=== PATIENT | female | born 1975 | race Caucasian/White ===

== ENCOUNTER 2020-09-05 12:53 | Outpatient (REF) | payer MEDICAID, SELFPAY ==
--- NOTE | ~2020-09-05 | XR_ITS ---
EXAMINATION: XR THORACIC SPINE: 3 VIEWS XR LUMBAR SPINE: 5 VIEWS CLINICAL INFORMATION: Back pain. COMPARISON: Radiographs dated 04/13/2019 FINDINGS: No acute fracture or traumatic malalignment. Vertebral body heights maintained. Small endplate osteophytes present throughout the thoracic and lumbar spine. Facet arthropathy present at L4-L5 and L5-S1. S1 is lumbarized. Paraspinal soft tissues unremarkable. Chain sutures present within the right lower quadrant. XR/XR thoracic spine 3V IMPRESSION: No acute fracture or traumatic malalignment. Degenerative changes as described.
--- NOTE | ~2020-09-05 | XR_ITS ---
EXAMINATION: XR HAND, LEFT CLINICAL INFORMATION: Pain in left hand COMPARISON: None TECHNIQUE: PA, lateral, and oblique views of the left hand. FINDINGS: There is no fracture or dislocation. Subtle erosion may be present at the base of the fifth metacarpal. Joint spaces are maintained. The soft tissues are unremarkable. XR/XR hand LT 2V IMPRESSION: No acute osseous abnormality. Subtle erosion may be present at the base of the fifth metacarpal. Otherwise unremarkable appearance of the hand.
--- NOTE | ~2020-09-05 | XR_ITS ---
EXAMINATION: XR THORACIC SPINE: 3 VIEWS XR LUMBAR SPINE: 5 VIEWS CLINICAL INFORMATION: Back pain. COMPARISON: Radiographs dated 04/13/2019 FINDINGS: No acute fracture or traumatic malalignment. Vertebral body heights maintained. Small endplate osteophytes present throughout the thoracic and lumbar spine. Facet arthropathy present at L4-L5 and L5-S1. S1 is lumbarized. Paraspinal soft tissues unremarkable. Chain sutures present within the right lower quadrant. XR/XR lumbar spine 4V min IMPRESSION: No acute fracture or traumatic malalignment. Degenerative changes as described.
== END 2020-09-05 12:54 | disposition home or self-care (01) ==
LOC: HO.XRAY 12:53
PROVIDERS: PCP Internal Medicine; Visit Provider Internal Medicine
DX: M79.642 Pain in left hand (principal); M54.5 Low back pain; M54.9 Dorsalgia, unspecified
CPT/HCPCS: 72072; 72110; 73120

== ENCOUNTER → 2020-10-07 13:10 | Outpatient (BNVA) | payer MEDICAID, SELFPAY | PROVIDERS: PCP Internal Medicine; Visit Provider Surgery | DX: R10.10 Upper abdominal pain, unspecified (principal) | CPT/HCPCS: 99202 ==

== ENCOUNTER 2020-10-23 09:59 | Outpatient (REF) | payer MEDICAID, SELFPAY ==
--- NOTE | ~2020-10-23 | MM_ITS ---
EXAMINATION: MM DIAGNOSTIC DIGITAL BREAST TOMOSYNTHESIS, BILATERAL CLINICAL INFORMATION: Due for yearly. Also follow-up probable benign calcifications mid upper outer left breast noted at outside imaging. Family history breast cancer, mother. The lifetime risk of breast cancer based on the Tyrer-Cuzick Model is 15%. COMPARISON: Outside mammography: 04/13/2019, 09/30/2018, 09/17/2018 (BI-RADS 0), 02/01/2015; ultrasound 02/01/2015 ([facility], [place]). TECHNIQUE: Digital breast tomosynthesis is performed in both the craniocaudal and mediolateral oblique views along with computer-aided detection (CAD). Synthesized 2D images are generated from the tomosynthesis. Additional magnification views are obtained in the left CC and left MLO projections. FINDINGS: There are scattered areas of fibroglandular density (ACR BI-RADS breast composition Category b). Parenchymal pattern is similar to prior studies. There are regional fibrocystic changes upper outer left breast. There are no significant mass or developing density or architectural abnormality. There are intramammary nodes again seen bilateral outer quadrants. Calcifications for follow-up mid upper outer left breast are stable from prior exams and now considered benign. Some of these show layering within the dependent fibrocystic changes. Results are discussed with the patient at time of visit. MM/MM tomosynthesis diagnostic BI IMPRESSION: 1. No significant changes from prior outside studies. 2. No significant changes left breast calcifications from prior diagnostic studies, now considered benign. ASSESSMENT: BI-RADS 2: Benign RECOMMENDATION: Routine annual mammography screening. This patient's information was entered into a reminder system with a target due date for their next mammogram.
== END 2020-10-23 10:00 | disposition home or self-care (01) ==
LOC: HO.MAMMO 09:59
PROVIDERS: Visit Provider Internal Medicine
DX: R92.2 Inconclusive mammogram (principal); Z80.3 Family history of malignant neoplasm of breast
CPT/HCPCS: 77062; 77066

== ENCOUNTER 2020-11-01 11:06 | Outpatient (REF) | payer MEDICAID, SELFPAY ==
--- NOTE | ~2020-11-01 | CT_ITS ---
EXAMINATION: CT ABDOMEN AND PELVIS WITHOUT CONTRAST CLINICAL INFORMATION: Upper abdominal pain COMPARISON: None TECHNIQUE: Multidetector volumetric imaging was performed from the superior aspect of the liver through the pubic symphysis. Sagittal and coronal reformatted images were obtained on the technologist's workstation. This CT examination was performed using dose optimization techniques as appropriate, variously including the following: *Automated exposure control *Adjustment of mA and/or kV according to patient size (this includes techniques or standardized protocols for targeted exams where dose is matched to indication/reason for exam; i.e. extremities or head) *Use of iterative reconstruction technique DLP: 541 mGy-cm FINDINGS: LUNG BASES: The visualized lung bases are unremarkable. LIVER, GALLBLADDER, AND BILIARY TREE: The liver is normal in size, shape, and attenuation. No focal hepatic lesion or biliary ductal dilatation is present. The gallbladder is unremarkable with no evidence of radiopaque gallstones, gallbladder wall thickening, or obvious pericholecystic inflammatory changes. PANCREAS: Unremarkable. SPLEEN: Unremarkable. ADRENAL GLANDS: Unremarkable. KIDNEYS AND URETERS: The kidneys are normal in size and shape. There is a small cyst exophytic to the lateral midpole of the left kidney. No hydronephrosis, hydroureter, or calculi seen. No perinephric stranding. BLADDER: Unremarkable. GASTROINTESTINAL TRACT: There is stool throughout the colon questionable for mild constipation. The small and large bowel are otherwise unremarkable. The appendix has been removed. There is a small esophageal hernia. The stomach is otherwise normal. ABDOMINAL WALL: There is a small umbilical hernia containing fat. LYMPH NODES: Normal. VASCULAR: Unremarkable. PELVIC VISCERA: Unremarkable. OSSEOUS STRUCTURES: Unremarkable. CT/CT abdomen pelvis wo con IMPRESSION: Stool throughout the colon questionable for mild constipation. Small umbilical hernia containing fat. Small hiatal hernia. Small left renal cyst.
[2020-11-01] MEDS: Barium Sulfate Oral (Vanilla) 450 ML ORAL.SUSP 900 ML PO (13:43)
== END 2020-11-01 11:07 | disposition home or self-care (01) ==
LOC: HO.CT 11:06
PROVIDERS: PCP Internal Medicine; Visit Provider Surgery
DX: R10.10 Upper abdominal pain, unspecified (principal)
CPT/HCPCS: 74176

== ENCOUNTER → 2020-11-14 15:33 | Outpatient (BNVA) | payer MEDICAID, SELFPAY | PROVIDERS: PCP Internal Medicine; Referring Provider Internal Medicine; Visit Provider Surgery | DX: R10.10 Upper abdominal pain, unspecified (principal); K42.9 Umbilical hernia without obstruction or gangrene | CPT/HCPCS: 99212 ==

== ENCOUNTER 2021-08-14 17:00 | Outpatient (RCR) | payer OTHER, MEDICAID, SELFPAY ==
--- NOTE | 2021-08-21 17:59 | MHC.PT.DC ---
[facility] [place] Office [place] Office [place] Office [address] [place] [address] [phone] F: [phone] F: [phone] F: [phone] F: [phone] Physical Therapy Discharge Report Diagnosis: low back pain Date of Surgery: n/a Date of Evaluation: 07/24/21 Date of Discharge: 08/21/21 Treatments to Date: 2 Cancellations to Date: 3 No Shows to Date: 2 Discharge Status: Visit Non-compliance Discharge Summary: Pt has failed to comply with [facility] attendance policy and now showed her last 2 appointments and cancelled 3 others. Pt status unknown at this time. Electronically signed by: Jeannie Teran, PT, DPT, ATC Please sign and return to therapist. Thank you for your referral.
== END 2021-08-21 18:00 | disposition home or self-care (01) ==
LOC: HO.PTCHIC 17:00
PROVIDERS: PCP Internal Medicine; Visit Provider Internal Medicine
DX: M54.50 Low back pain, unspecified (principal)
CPT/HCPCS: 97110; 97161

== ENCOUNTER 2021-09-24 15:48 | Outpatient (REF) | payer OTHER, MEDICAID, SELFPAY ==
[2021-09-24 17:50] LABS: Hematocrit 37.3 % (37.0-47.0); Mean Corpuscular HGB Conc 32.2 g/dl (31.0-35.0); Mean Corpuscular Hemoglobin 26.3 pg (27.0-33.0); Mean Corpuscular Volume 81.6 fL (80.0-98.0); Mean Platelet Volume 10.4 fL (9.4-12.3); Platelet Count 325 X10*3/uL (160-400); Red Blood Count 4.57 X10*6/uL (4.20-5.50); Red Cell Distribution Width 14.6 % (11.0-16.0); White Blood Count 7.8 X10*3/uL (4.8-10.8)
[2021-09-24 18:14] LABS: Alanine Aminotransferase 14 U/L (0-31); Albumin Level 4.2 g/dL (3.5-5.0); Alkaline Phosphatase 106 U/L (39-117); Anion Gap 12 (12-20); Aspartate Amino Transferase 13 U/L (5-31); Bilirubin Total 0.2 mg/dL (0.0-1.0); Blood Urea Nitrogen 14 mg/dL (9-16); Calcium 9.9 mg/dL (8.4-10.2); Carbon Dioxide 28 mmol/L (22-29); Chloride 104 mmol/L (96-108); Estimated Glomerular Filt Rate > 60; Glucose Random 95 mg/dL (60-115); Lipase 21 U/L (8-78); Potassium 4.3 mmol/L (3.3-5.1); Sodium 140 mmol/L (135-145); Total Protein 7.4 g/dL (6.5-8.0)
[2021-09-24 18:34] LABS: TSH reflex Free T4 1.66 uIU/mL (0.32-4.0)
[2021-09-24 19:02] LABS: Folate 8.3 ng/mL (> or = 4.0); Vitamin B12 292 pg/mL (200-900)
[2021-09-28 14:17] LABS: Vitamin D 25-OH, D2 26 ng/mL; Vitamin D 25-OH, D3 8 ng/mL; Vitamin D 25-OH, Total 34 ng/mL (30-100)
== END 2021-09-24 15:49 | disposition home or self-care (01) ==
LOC: HO.LAB 15:48
PROVIDERS: PCP Internal Medicine; Referring Provider Internal Medicine; Visit Provider Nurse Practitioner Family
DX: R10.10 Upper abdominal pain, unspecified (principal); K59.04 Chronic idiopathic constipation; K21.9 Gastro-esophageal reflux disease without esophagitis; R19.7 Diarrhea, unspecified; E55.9 Vitamin D deficiency, unspecified
CPT/HCPCS: 36415; 80053; 82306; 82607; 82746; 83690; 84443; 85027; 99214

== ENCOUNTER → 2021-10-09 08:54 | Outpatient (BNVA) | payer OTHER, SELFPAY | PROVIDERS: PCP Internal Medicine; Visit Provider Nurse Practitioner Family | DX: Z13.89 Encounter for screening for other disorder (principal) ==

== ENCOUNTER 2021-10-09 14:57 | Outpatient (REF) | payer OTHER, MEDICAID, SELFPAY ==
[2021-10-10 12:47] LABS: H Pylori Breath Test Negative (Negative)
== END 2021-10-09 14:58 | disposition home or self-care (01) ==
LOC: HO.LNP 14:57
PROVIDERS: Visit Provider Nurse Practitioner Family
DX: R10.10 Upper abdominal pain, unspecified (principal); Z11.0 Encounter for screening for intestinal infectious diseases
CPT/HCPCS: 83013

== ENCOUNTER 2022-12-04 07:55 | Day surgery (SDC) | payer OTHER, MEDICAID, SELFPAY ==
[2022-12-01 16:52] VITALS: BMI 35.9
--- NOTE | 2022-12-03 10:21 | HO.ANESPROP2 ---
HPI - Anesthesia Eval Consult details Narrative: 47yo F for Upper Endoscopy s/p tubal PMFSH Active Problems Active Problems: All Active Problems (Updated 10/07/20 @ 13:39 by Kirk Li MD) Upper abdominal pain (Acute) Past Medical History Medical History Asthma Upper abdominal pain Family History Family History Maternal Grandmother Breast cancer Father Diabetes HTN (hypertension) Schizophrenia Stroke Paternal Grandfather Stroke Diabetes HTN (hypertension) Mother Diabetes HTN (hypertension) Heart problem Other History of esophageal cancer History of kidney cancer Stomach cancer Throat cancer Uterine cancer Surgical History Surgical History History of appendectomy History of esophagogastroduodenoscopy (EGD) History of tubal ligation History of umbilical hernia repair Social History Social History Alcohol intake: never Patient Tobacco Use Status: Never used Tobacco Meds Allergies Allergy/AdvReac Type Severity Reaction Status Date / Time morphine Allergy Unknown Unknown Verified 12/14/22 10:05 ciprofloxacin [From Cipro] Allergy Difficulty Verified 12/14/22 10:05 Breathing Home Medications Medication Instructions Recorded Confirmed Last Taken Type albuterol sulfate 90 mcg/actuation 2 puff inhalation Q6H PRN asthma 10/07/20 12/04/22 Unknown History aerosol inhaler (ProAir HFA) Exam Exam Date and Time: December 03, 2022 1021 Height,Weight and Vital Signs: Height 4 ft 11 in Weight 80.739 kg Assessment and Plan Assessment Anesthesia Assessment: Chart Reviewed
[2022-12-04 08:33] VITALS: BP 109/74; PULSE 78; RESP 16; TEMP 36.3; O2SAT 99; BMI 35.9
--- NOTE | 2022-12-04 09:01 | HO.ANESPROP2 ---
[facility] Active Problems Active Problems: All Active Problems (Updated 12/04/22 @ 08:40 by Ale Dinero RN) Upper abdominal pain (Acute) Past Medical History Medical History Asthma Upper abdominal pain Family History Family History Maternal Grandmother Breast cancer Father Diabetes HTN (hypertension) Schizophrenia Stroke Paternal Grandfather Stroke Diabetes HTN (hypertension) Mother Diabetes HTN (hypertension) Heart problem Other History of esophageal cancer History of kidney cancer Stomach cancer Throat cancer Uterine cancer Surgical History Surgical History History of appendectomy History of esophagogastroduodenoscopy (EGD) History of tubal ligation History of umbilical hernia repair Social History Social History Alcohol intake: never Patient Tobacco Use Status: Never used Tobacco Use of substances other than those prescribed or required for medical reasons: No Are you DNR?: No Advance Directives: No Advance Directives Information Provided: Yes Meds Allergies Allergy/AdvReac Type Severity Reaction Status Date / Time morphine Allergy Unknown Unknown Verified 09/24/21 16:02 ciprofloxacin [From Cipro] Allergy Difficulty Verified 12/04/22 08:42 Breathing Active Medications: Current Medications Lactated Ringer's (Lr) 1,000 mls @ 100 mls/hr IVCONT .Q10H [facility] Home Medications Medication Instructions Recorded Confirmed Last Taken Type albuterol sulfate 90 mcg/actuation 2 puff inhalation Q6H PRN asthma 10/07/20 12/04/22 Unknown History aerosol inhaler (ProAir HFA) omeprazole 20 mg capsule,delayed 20 mg PO BID 10/07/20 12/04/22 Unknown History release Exam Exam Date and Time: December 04, 2022900 Height,Weight and Vital Signs: Height 4 ft 11 in Weight 80.7 kg Last Vital Signs Temp 97.4 F 12/04/22 08:33 Pulse 78 12/04/22 08:33 Resp 16 12/04/22 08:33 BP 109/74 12/04/22 08:33 Pulse Ox 99 12/04/22 08:33 O2 Del Method Room Air 12/04/22 08:33 Airway Mallampati Class: II TM Dist: >3cm Neck ROM: Full Heart: RRR Lungs: CTA Assessment and Plan Final Anesthetic Review ASA Class: II Final Preanesthetic Review: Meds/Allgs Chart Reviewed, Consent Obtained/Reviewed and Anes Risks/Benef Reviewed Patient Risk: Low Procedure Risk: Low Anesthetic Plan Anesthetic Plan: MAC: Disposition: Standard PACU
--- NOTE | 2022-12-04 09:09 | P.HPSUR_ITS ---
Pre-Procedural Eval Section A Date of Service: 12/04/22 The patient is an INPATIENT: No Section B Chief Complaint: Upper abdominal pain, unspecified.reflux Relevant Family History (Specify if Yes): Yes Present Medications: see Short Stay Collaborative assessment Medical History: Significant History ([facility] [id number] [address] Office Visit ReportSigned Patient: Rajni Marshall LMR#: [id number]: [id number]:[id number]/Sex: 45 / FADM/SER Date: 09/24/21Loc: HO.HGIADM/SER Time:1548Attending Provider: Letty Paredes PERIOPERATIVE EDUCATOR- cc: Susy Edmondson MD; Reggie) History of Previous Operations: Relevant previous surgery/procedure and date(s) (History of appendectomy History of esophagogastroduodenoscopy (EGD) History of tubal ligation History of umbilical hernia repair) Allergies: Allergies Allergy/AdvReac Type Severity Reaction Status Date / Time morphine Allergy Unknown Unknown Verified 09/24/21 16:02 ciprofloxacin [From Cipro] Allergy Difficulty Verified 12/04/22 08:42 Breathing Review of Systems Sugical H&P ROS: Negative: Constitution, Cardiovascular and Respiratory and Yes, Specify: Gastrointestinal (GERD) Exam Surgical H&P Exam: Normal: Heart, Normal: Lungs, Normal: Extremities and Normal: Abdomen Plan Diagnosis/Plan: Unchanged I have reviewed the history and physical and performed a pertinent physical examination on my patient. No changes have occurred unless specified. Time Spent With Patient Time: Total time managing care of this patient today ____ minutes.
[2022-12-04] MEDS: Lactated Ringers 1,000 ML 100 ML IVCONT (09:13)
--- NOTE | 2022-12-04 09:17 | P.OP_ITS ---
Operative Note Operative Note Date of Service: 12/04/22 Narrative: FLEXIBLE TRANSORAL UPPER GASTROINTESTINAL ENDOSCOPY WITH BIOPSIES Pre-op diagnosis: GERD, abdominal pain and bloating Post-op diagnosis: GERD, esophagitis, hiatal hernia, gastritis, gastric polyps Endoscopist:? Helen Madrid MD Anesthesia:?MAC Consent: Indications for the procedure and potential complications of bleeding, perforation, reaction to medications and missed diagnosis were discussed with the patient and informed consent was obtained. Instrument: Olympus GIF H 190 mid size upper endoscope Monitoring: Vital signs and clinical assessment, continuous EKG monitoring, Pulse oximetry, Carbon Dioxide monitoring and blood pressure monitoring were done throughout the procedure. Procedure: The patient was placed in the left lateral decubitis position and pre-procedure medications were administered and a bite block was placed. The endoscope was inserted into the mouth and advanced under direct vision to the third part of duodenum. A careful inspection was made as the upper endoscope was withdrawn including a retroflexed examination of the proximal stomach; Findings and interventions are described below. Findings: Larynx: Normal Esophagus: GE junction at 28 cms, hiatal hernia 28 to 32 cms. Focal esophagitis with a single 1 cms ulcer at GE junction covered with white exudate. No Patel's. Stomach: A few 10-12 mm benign appearing polyps in the gastric fundus - biopsied. Mild gastric erythema. Biopsies were obtained. Grade 2 flap valve on retroflexed examination of the cardia. Duodenum: Normal bulb and descending duodenum. Biopsies were obtained from 3rd part of duodenum to check for celiac sprue. Intervention: Biopsies as noted above Impression and Post Procedure Diagnosis: Endoscopy Findings: ESOPHAGUS: Hiatal hernia with focal esophagitis STOMACH: Gastritis and gastric polyps DUODENUM: Normal - biopsied to check for celiac sprue Plan: Await pathology results Patient has an appointment on 12/14/22 in the GI Clinic with Letty Paredes FNP- BC . Above findings were reviewed with the patient and Hiatal hernia and Gastric polyps handouts were given in the discharge area. Pt was advised to take Omeprazole daily instead of prn.
[2022-12-04 09:46] VITALS: BP 115/85; PULSE 104; RESP 16; TEMP 36.3; O2SAT 96
[2022-12-04 10:01] VITALS: BP 104/73; PULSE 78; RESP 16; TEMP 36.2; O2SAT 97
--- NOTE | 2022-12-04 10:09 | HO.POSTANES ---
Post Anesthesia Evaluation Post Anesthesia Evaluation Date of Service: 12/04/22 Vital Signs: Vital Signs Temp Pulse Resp BP Pulse Ox O2 Del Method 12/04/22 10:01 97.1 F 78 16 104/73 97 Room Air 12/04/22 09:46 97.4 F 104 H 16 115/85 96 Room Air 12/04/22 08:33 97.4 F 78 16 109/74 99 Room Air Anesthesia: Monitored Mental Status: Awake Pain Control: Satisfactory Nausea/Vomiting: None Hydration: Adequate Anesthesia-Related Issues: No Anes. Related Issues
== END 2022-12-04 10:40 | disposition home or self-care (01) ==
PROVIDERS: PCP Internal Medicine; Visit Provider Internal Medicine Gastroenterology
PROC: 0DJ08ZZ Inspection of Upper Intestinal Tract, Via Natural or Artificial Opening Endoscopic (ICD-10-PCS; CPT 43235; principal; 2022-12-04 09:10)
DX: K21.9 Gastro-esophageal reflux disease without esophagitis (principal); K29.50 Unspecified chronic gastritis without bleeding; K31.7 Polyp of stomach and duodenum; K20.80 Other esophagitis without bleeding; K44.9 Diaphragmatic hernia without obstruction or gangrene; J45.909 Unspecified asthma, uncomplicated; Z79.899 Other long term (current) drug therapy; Z88.8 Allergy status to other drugs, medicaments and biological substances; Z88.1 Allergy status to other antibiotic agents
CPT/HCPCS: 43239; 88305; 88342

== ENCOUNTER 2022-12-14 09:05 | Outpatient (REF) | payer OTHER, SELFPAY ==
[2022-12-19 12:24] LABS: Vitamin D 25-OH, D2 18 ng/mL; Vitamin D 25-OH, D3 13 ng/mL; Vitamin D 25-OH, Total 31 ng/mL (30-100)
== END 2022-12-14 09:06 | disposition home or self-care (01) ==
LOC: HO.LAB 09:05
PROVIDERS: Visit Provider Nurse Practitioner Family
DX: R10.9 Unspecified abdominal pain (principal); E55.9 Vitamin D deficiency, unspecified; R19.7 Diarrhea, unspecified; K59.00 Constipation, unspecified
CPT/HCPCS: 36415; 80076; 82306; 82607; 82746; 83690; 84443

== ENCOUNTER 2022-12-14 09:05 | Outpatient (AMB) | payer OTHER, SELFPAY ==
--- NOTE | 2022-12-14 09:37 | A.OFFVIS_ITS ---
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 Will check her lab work for thyroid study, CBC, lipase, CMP.? Upon exam there is no tenderness no distension. (2) Chronic idiopathic constipation: ?Code(s): K59.04 - Chronic idiopathic constipation ?Plan: Chronic history of constipation.? Patient states that she noticed that has been going on for over 6 months maybe longer.? I will start her on Senokot and MiraLax.? Patient used to take stool softener, however she did not thing that that was helpful. (3) GERD (gastroesophageal reflux disease): ?Code(s): K21.9 - Gastro-esophageal reflux disease without esophagitis ?Qualifiers: ?Esophagitis presence:?esophagitis presence not specified? Qualified Code(s):?K21.9 - Gastro-esophageal reflux disease without esophagitis ?Plan: Acid reflux with epigastric pain postprandially.? Patient was encouraged to avoid dietary triggers and like night snacking.? Patient does admit to eating before going to bed sometimes.? Discussed with patient the importance of pain of her for minimal 3 hours after meals.? We will do H pylori testing and start patient on Pepcid at bedtime.? If this not going to be effective we will start her on PPI.? We will have to treat her empirically if her H pylori test is positive.? I will send her for upper endoscopy.? I will see her after the procedure.? Patient is agreeable to this plan and verbalizes understanding of instructions.? She was given the opportunity to ask questions all questions answered.? UPPER ENDOSCOPY Findings: Larynx:? Normal Esophagus: GE junction at 28 cms, hiatal hernia 28 to 32 cms.? Focal esophagitis with a single 1 cms ulcer at GE junction covered with white exudate. No Patel's. Stomach: A few 10-12 mm benign appearing polyps in the gastric fundus - biopsied. Mild gastric erythema. Biopsies were obtained. Grade 2 flap valve on retroflexed examination of the cardia. Duodenum: Normal bulb and descending duodenum.? Biopsies were obtained from 3rd part of duodenum to check for celiac sprue. Intervention: Biopsies as noted above Impression and Post Procedure Diagnosis: Endoscopy Findings: ESOPHAGUS: Hiatal hernia with focal esophagitis STOMACH: Gastritis and gastric polyps DUODENUM: Normal - biopsied to check for celiac sprue Above findings were reviewed with the patient and Hiatal hernia and Gastric polyps handouts were given in the discharge area.? Pt was advised to take Omeprazole daily instead of prn. PATHOLOGY RESULTS Addendum Addendum #1 Immunohistochemical stains for H. pylori on B and C are negative with appropriate control. Electronically Signed By: Letty Roldan ? 12/14/22 0929 Diagnosis A.? Small bowel, biopsy:? Small bowel mucosa with preserved villi and no specific change; no evidence of celiac disease.? B.? Gastric antrum, biopsy:? Gastric antral mucosa with mild reactive changes and minimal chronic inactive gastritis; negative for intestinal metaplasia and dysplasia (see comment).? C.? Gastric polyps, biopsy:? Fundic gland polyp; negative for intestinal metaplasia and dysplasia (see comment).? Comment: (B and C):? H pylori stains pending; addendum to follow.: Clinical History Pre-Op Dx:? Dysphagia, GERD, gastric polyps Post-Op Dx: GERD, gastric polyps, esophagitis, hiatal hernia, gastritis TODAY'S VISIT Patient is here today for follow-up and to discuss upper endoscopy results. Patient was found to have esophagitis, gastritis, hiatal hernia and gastric polyps. Patient reports that she has searched on website information that omeprazole can cause gastric polyp so she stopped taking it. Patient reports occasional epigastric discomfort with occasional dyspepsia without dysphagia or odynophagia. Patient reports that she PFSH Medical History Asthma Upper abdominal pain Surgical History History of appendectomy History of esophagogastroduodenoscopy (EGD) History of tubal ligation History of umbilical hernia repair Family History Maternal Grandmother Breast cancer Father Diabetes HTN (hypertension) Schizophrenia Stroke Paternal Grandfather Stroke Diabetes HTN (hypertension) Mother Diabetes HTN (hypertension) Heart problem Other History of esophageal cancer History of kidney cancer Stomach cancer Throat cancer Uterine cancer Social History Alcohol intake: never Patient Tobacco Use Status: Never used Tobacco Review of Systems Const Denies weight gain and Denies weight loss ENT Reports no additional complaints, Denies dysphagia and Denies odynophagia Card Reports no additional complaints Resp Reports no additional complaints GI Reports abdominal pain (Epigastric), Denies belching, Denies melena, Denies bloating, Reports constipation, Denies dysphagia, Denies excessive flatus, Denies dyspepsia, Denies heartburn, Denies diarrhea, Denies loose stools, Denies nausea, Denies odynophagia and Denies vomiting Reports no additional complaints Musc Reports no additional complaints Neuro Reports no additional complaints Psych Reports no additional complaints Endo Reports no additional complaints Physical Exam Vital Signs: Last Vital Signs Pulse 92 12/14/22 10:05 BP 126/68 12/14/22 10:05 BMI result Body Mass Index 37.0 Const General: healthy appearing, no acute distress and well developed Nutritional Appearance: obese Orientation/consciousness: patient oriented x3 HEENT Head: Yes normal to inspection, Yes normocephalic and Yes atraumatic Face and sinus: Yes normal facial exam Mouth: Normal oral and palatal mucosa present Throat: Yes posterior oropharynx normal, Yes tonsils normal and Yes uvula midline Eyes General: appearance normal, both eyes and all related structures Neck Neck: Yes normal visual inspection, Yes full ROM and Yes trachea midline Thyroid: Thyroid normal Resp Effort & Inspection: normal respiratory effort, able to speak in complete se ntences, no tracheal deviation and symmetric chest movement Auscultation: clear to auscultation bilaterally Cardio Rate: regular rate Heart sounds: S1 normal heart sound present and S2 normal heart sound present GI Inspection: Yes normal to inspection, No distended and Yes obesity Palpation (GI): Soft to palpation, not firm, nontender and No hepatosplenomegaly present Auscultation: normal bowel sounds General: Yes no CVA tenderness Back/Spine/Pelvis Back: no CVA tenderness Skin General skin exam: elasticity normal, turgor normal and dry skin Neuro General: patient oriented x3 Psych Appearance: grossly normal Mental Status: mental status grossly normal Speech and movement: Normal speech and movement present Affect: normal affect Assessment & Plan Assessment & Plan (1) Upper abdominal pain: Code(s): R10.10 - Upper abdominal pain, unspecified Plan: Epigastric discomfort could be related to patient's gastritis noted on upper en doscopy. Patient was encouraged to avoid dietary triggers and late night snacking. Start taking pantoprazole every morning. Patient will be given sucralfate at bedtime. (2) Chronic idiopathic constipation: Code(s): K59.04 - Chronic idiopathic constipation Plan: Patient reports that she does not move her bowels daily. Start MiraLax daily. Patient was also encouraged to increase fluid intake and activity to promote better bowel motility (3) GERD (gastroesophageal reflux disease): Code(s): K21.9 - Gastro-esophageal reflux disease without esophagitis Qualifiers: Esophagitis presence: with esophagitis Esophagitis bleeding: without hemorrhage Qualified Code(s): K21.00 - Gastro-esophageal reflux disease with esophagitis, without bleeding Plan: Discussed with patient avoiding dietary triggers and late night snacking. Staying upright for minimum 3 hours after meals discussed with patient. Patient was encouraged to try to lose weight. I will see her in 8 months to discuss going for repeat upper endoscopy. I will see her sooner on as needed basis. Patient is agreeable to this plan and verbalizes understanding of instructions. She was given the opportunity to ask questions and all questions answered. Thank you for allowing me to participate in her care Orders: Orders Vitamin B12 and Folate Today R19.7 - Diarrhea, unspecified Lipase Today R10.9 - Unspecified abdominal pain Liver Panel Today R10.9 - Unspecified abdominal pain TSH reflex Free T4 Today K59.00 - Constipation, unspecified Vitamin D 25-OH (D2 and D3) Today E55.9 - Vitamin D deficiency, unspecified Medications: New polyethylene glycol 3350 (Miralax) 17 grams PO DAILY 510 grams 2RF sucralfate 10 mL PO BEDTIME 400 mL 3RF K21.9 - Gastro-esophageal reflux disease without esophagitis pantoprazole take one tablet half an hour before breakfast 40 mg PO DAILY 30 tabs 4RF K21.9 - Gastro-esophageal reflux disease without esophagitis Coding Level of Care Code Est Pt Level 4 (34548) Diagnoses Upper abdominal pain R10.10 Chronic idiopathic constipation K59.04 GERD (gastroesophageal reflux disease) K21.00 Esophagitis presence: with esophagitis Esophagitis bleeding: without hemorrhage Time Spent (min) 35 Comment 20 minutes spent with patient and additional 15 minutes spent reviewing her records
[2022-12-14 10:05] VITALS: BP 126/68; PULSE 92; BMI 37.0
== END 2022-12-14 10:20 | disposition home or self-care (01) ==
PROVIDERS: Visit Provider Nurse Practitioner Family
DX: R10.10 Upper abdominal pain, unspecified (principal); K59.04 Chronic idiopathic constipation; K21.00 Gastro-esophageal reflux disease with esophagitis, without bleeding
CPT/HCPCS: 99214

== ENCOUNTER 2023-08-16 09:52 | Outpatient (AMB) | payer OTHER, SELFPAY ==
--- NOTE | 2023-08-16 09:53 | MHC.OFFVIS ---
Intake Vital Signs 08/16/23 09:54 Height 4 ft 11 in Weight 184 lb 11.958 oz BMI 37.3 BP 116/73 Blood Pressure Location Rt brachial Position Sitting Pulse 112 H Intake Visit Reasons: 8 month fu Intake Note: Rajni returns to in office follow up of labs. CC: Patient reports that 2 days ago she was having left upper stomach pain and constipation. She states that she took the laxatives but she ate a chocolate that helped her have a BM. She continues having LUQ abdominal pain that is worst if she has not had a BM. She also reports having a mild pain from right upper abdomen sometimes and heartburn. Wreath Inspector Required: No Allergies morphine Allergy (Unknown, Verified 08/16/23 10:03) Unknown ciprofloxacin [From Cipro] Allergy (Verified 08/16/23 10:03) Difficulty Breathing IV dye Allergy (Severe, Uncoded 08/16/23 10:17) Hives HPI 8 month fu HPI Details LAST VISIT: Upper abdominal pain Epigastric discomfort could be related to patient's gastritis noted on upper endoscopy. Patient was encouraged to avoid dietary triggers and late night snacking. Start taking pantoprazole every morning. Patient will be given sucralfate at bedtime. Chronic idiopathic constipation Patient reports that she does not move her bowels daily. Start MiraLax daily. Patient was also encouraged to increase fluid intake and activity to promote better bowel motility GERD (gastroesophageal reflux disease) Discussed with patient avoiding dietary triggers and late night snacking. Staying upright for minimum 3 hours after meals discussed with patient. Patient was encouraged to try to lose weight. I will see her in 8 months to discuss going for repeat upper endoscopy. I will see her sooner on as needed basis. Patient is agreeable to this plan and verbalizes understanding of instructions. She was given the opportunity to ask questions and all questions answered. ? Thank you for allowing me to participate in her care Plan Orders Orders Vitamin B12 and Folate Today R19.7 - Diarrhea, unspecified Lipase Today R10.9 - Unspecified abdominal pain Liver Panel Today R10.9 - Unspecified abdominal pain TSH reflex Free T4 Today K59.00 - Constipation, unspecified Vitamin D 25-OH (D2 and D3) Today E55.9 - Vitamin D deficiency, unspecified Medications New polyethylene glycol 3350 (Miralax) 17 grams PO DAILY 510 grams 2RF sucralfate 10 mL PO BEDTIME 400 mL 3RF K21.9 - Gastro-esophageal reflux disease without esophagitis pantoprazole take one tablet half an hour before breakfast 40 mg PO DAILY 30 tabs 4RF K21.9 - Gastro-esophageal reflux disease without esophagitis TODAY'S VISIT: Patient is here today for follow-up and to discuss going for colonoscopy. Patient reports that she has been feeling better since last seen, however she continues to have a postprandial epigastric discomfort. Her symptoms acid reflux are suppressed for the most part. Patient is trying to avoid going to bed after eating. Reports that pantoprazole has been working for her. Patient states that she continues to be constipated. Tried taking MiraLax, however feels like it has not helping her. Patient had to use [id number] chocolate laxative. Patient does not remember the name. Patient reports left upper quadrant discomfort specially when she is constipated. Patient never had colonoscopy in the past. Patient is agreeing to have the procedure. Patient denies any issues with anesthesia in the past. No history of sleep apnea. Not on any anticoagulation medication. No cardiac or respiratory symptoms. Patient denies melena, hematochezia, unintentional weight loss or ribbon like stools. [facility] Medical History Asthma Upper abdominal pain Surgical History History of esophagogastroduodenoscopy (EGD) History of appendectomy History of tubal ligation History of umbilical hernia repair Family History Maternal Grandmother Breast cancer Father Diabetes HTN (hypertension) Schizophrenia Stroke Paternal Grandfather Stroke Diabetes HTN (hypertension) Mother Diabetes HTN (hypertension) Heart problem Other History of esophageal cancer History of kidney cancer Stomach cancer Throat cancer Uterine cancer Social History Alcohol intake: never Patient Tobacco Use Status: Never used Tobacco Review of Systems Const Denies weight gain and Denies weight loss ENT Reports no additional complaints, Denies dysphagia and Denies odynophagia Card Reports no additional complaints Resp Reports no additional complaints GI Reports abdominal pain (LUQ, RUQ), Denies belching, Denies melena, Reports bloating, Denies change in bowel habits, Reports constipation, Denies dysphagia, Denies excessive flatus, Denies dyspepsia, Reports heartburn, Denies diarrhea, Denies loose stools, Denies nausea, Denies odynophagia and Denies vomiting Reports no additional complaints Musc Reports no additional complaints Neuro Reports no additional complaints Psych Reports no additional complaints Endo Reports no additional complaints Physical Exam Vital Signs: BMI result Body Mass Index 37.3 Const General: healthy appearing, no acute distress and well developed Nutritional Appearance: obese Orientation/consciousness: patient oriented x3 Resp Effort & Inspection: normal respiratory effort, able to speak in complete sentences, no tracheal deviation and symmetric chest movement Auscultation: clear to auscultation bilaterally Cardio Rate: regular rate GI Inspection: Yes normal to inspection, No distended and Yes obesity Palpation (GI): Soft to palpation, not firm, nontender and No hepatosplenomegaly present Auscultation: normal bowel sounds General: Yes no CVA tenderness Back/Spine/Pelvis Back: no CVA tenderness Skin General skin exam: elasticity normal, turgor normal and dry skin Neuro General: patient oriented x3 Psych Appearance: grossly normal Mental Status: mental status grossly normal Assessment & Plan Assessment & Plan (1) Upper abdominal pain: Code(s): R10.10 - Upper abdominal pain, unspecified (2) Chronic idiopathic constipation: Code(s): K59.04 - Chronic idiopathic constipation (3) GERD (gastroesophageal reflux disease): Code(s): K21.9 - Gastro-esophageal reflux disease without esophagitis Qualifiers: Esophagitis presence: esophagitis presence not specified Qualified Code(s): K21.9 - Gastro-esophageal reflux disease without esophagitis (4) Postprandial epigastric pain: Code(s): R10.13 - Epigastric pain (5) Left upper quadrant pain: Code(s): R10.12 - Left upper quadrant pain Plan Continue pantoprazole and sucralfate. Patient will start taking senna daily and continue taking MiraLax. Patient continues occasional epigastric discomfort postprandially we will send her for upper endoscopy to further evaluate for gastritis, duodenitis, esophagitis, gastric or peptic ulcer, Patel's, H pylori. Patient had no issues with anesthesia in the past. Not on any anticoagulation medication. No history of sleep apnea. What to expect before during and after the procedure discussed patient. Stressed the importance of good bowel prep and clear liquid diet day before the procedure. Patient will be seen after the procedure, sooner on as needed basis. She is agreeable to this plan and verbalizes understanding of instructions. She was given the opportunity to ask questions and all questions answered. Thank you for allowing me to participate in her care Medications: New sennosides (Natural Senna Laxative) 17.2 mg (2 x 8.6 mg) PO BEDTIME 180 tabs 3RF constipation K59.00 - Constipation, unspecified bisacodyl (Dulcolax (bisacodyl)) take 4 tabs at noon the day before your colonoscopy 20 mg (4 x 5 mg) PO ONCE 1 day 4 tabs 0RF Z12.11 - Encounter for screening for malignant neoplasm of colon polyethylene glycol 3350 (Miralax) As directed by gastro[facility]ology department at [facility] 238 grams PO ONCE 238 grams 0RF Z12.11 - Encounter for screening for malignant neoplasm of colon Coding Level of Care Code Est Pt Level 4 (16663) Diagnoses Upper abdominal pain R10.10 Chronic idiopathic constipation K59.04 Gastroesophageal reflux disease, unspecified whether esophagitis present K21.9 Esophagitis presence: esophagitis presence not specified Postprandial epigastric pain R10.13 Left upper quadrant pain R10.12 Time Spent (min) 35 Comment 25 minutes spent with patient and additional 10 minutes spent reviewing her records
[2023-08-16 09:54] VITALS: BP 116/73; PULSE 112; BMI 37.3
== END 2023-08-16 10:37 | disposition home or self-care (01) ==
PROVIDERS: PCP Internal Medicine; Visit Provider Nurse Practitioner Family
DX: R10.10 Upper abdominal pain, unspecified (principal); K59.04 Chronic idiopathic constipation; K21.9 Gastro-esophageal reflux disease without esophagitis; R10.13 Epigastric pain; R10.12 Left upper quadrant pain
CPT/HCPCS: 99214

== ENCOUNTER → 2023-08-16 09:52 | Outpatient (BNVA) | payer OTHER, SELFPAY | PROVIDERS: PCP Internal Medicine; Visit Provider Nurse Practitioner Family ==

== ENCOUNTER 2023-10-05 13:59 | Outpatient (REF) | payer OTHER, SELFPAY ==
--- NOTE | ~2023-10-05 | XR_ITS ---
EXAMINATION: XR WRIST, LEFT CLINICAL INFORMATION: Order statement left wrist pain, patient stated pain since September 22, denies injury. COMPARISON: Left hand 09/05/2020. TECHNIQUE: PA, lateral, and oblique views of the left wrist. FINDINGS: Moderate degenerative changes in the first carpometacarpal joint with joint space narrowing and hypertrophic change. No displaced fracture. Ulnar minus variance. Mild narrowing of the radiocarpal space with flattening/concavities. XR/XR wrist LT min 3V IMPRESSION: 1. Moderate degenerative changes first carpometacarpal joint. 2. No displaced fracture. Recommend follow-up imaging in 10-14 days if fracture is suspected.
== END 2023-10-05 14:00 | disposition home or self-care (01) ==
LOC: HO.HHCX 13:59
PROVIDERS: Visit Provider Nurse Practitioner Primary Care
DX: M25.532 Pain in left wrist (principal)
CPT/HCPCS: 73110

== ENCOUNTER 2023-10-13 09:25 | Outpatient (REF) | payer OTHER, SELFPAY ==
[2023-10-13 11:35] LABS: Appearance Urine Clear; Color Urine Yellow; Glucose Urine UA Negative (Negative); Leukocyte Esterase Urine Negative (Negative); Nitrite Urine Negative (Negative); PH 5.5 (5.0-9.0); Specific Gravity - Urine 1.025 (1.005-1.025); Urine Blood Negative (Negative); Urine Ketones Trace mg/dL (Negative); Urine Protein Negative (Neg-Trace)
[2023-10-13 11:37] LABS: Bacteria Urine None Seen (None Seen); Hyaline Casts Urine 0-2 /LPF (0-2); RBC Urine 0-2 /HPF (0-2); WBC Urine 0-5 /HPF (0-5)
[2023-10-13 12:13] LABS: Cholesterol 242 mg/dL (<200); HDL Cholesterol 44 mg/dL (>40); LDL Cholesterol Calculated 151 mg/dL (<100); Triglycerides 235 mg/dL (<150)
[2023-10-13 12:26] LABS: Syphilis Screen Nonreactive (Nonreactive)
[2023-10-13 12:27] LABS: HBS Num1 1.88 mIU/mL (0-7.99); HBc Num1 0.11 S/CO (0.00-0.79); HBsAGNum1 0.21 S/CO (0.00-0.99); HIV AB/AG Nonreactive (Nonreactive); HIV Num 1 0.05 S/CO (0.00-0.99); Hepatitis B Core Antibody Nonreactive (Nonreactive); Hepatitis B Surface Antigen Negative (Negative); ~HepC Num1 0.15 S/CO (0.00-0.79); ~Hepatitis B Surface Antibody NONREACTIVE (Nonreactive); ~Hepatitis C Antibody Nonreactive (Nonreactive)
[2023-10-13 12:34] LABS: Reflex LDLD? No; TSH reflex Free T4 1.56 uIU/mL (0.32-4.0); Vitamin D 25-OH Total 22.6 ng/mL (>30)
[2023-10-13 12:57] LABS: Hepatitis A Antibody IgM 0.12 Index (0-0.79); ~Hepatitis A Antibody IgM Nonreactive (Nonreactive)
[2023-10-14 09:04] LABS: Follicle Stimulating Hormone 53.1 mIU/mL; Lutenizing Hormone 25.9 mIU/mL; Prolactin 7.1 ng/mL
[2023-10-14 18:19] LABS: Mumps Virus IgG Antibody <9.00 AU/mL; Rubella IgG Antibody 1.99 Index; Rubeola IgG (Measles) >300.00 AU/mL
[2023-10-16 07:24] LABS: TS Negative Control Passed; TS Panel A 0; TS Panel B 0; TS Positive Control Passed; TSpotTB Negative (Negative)
== END 2023-10-13 09:26 | disposition home or self-care (01) ==
LOC: HO.HHCL 09:25
PROVIDERS: Visit Provider Internal Medicine
DX: Z12.11 Encounter for screening for malignant neoplasm of colon (principal); Z12.12 Encounter for screening for malignant neoplasm of rectum; Z13.6 Encounter for screening for cardiovascular disorders; Z11.4 Encounter for screening for human immunodeficiency virus [HIV]; N91.2 Amenorrhea, unspecified; R21 Rash and other nonspecific skin eruption; R73.03 Prediabetes
CPT/HCPCS: 36415; 80061; 81001; 82306; 83001; 83002; 84146; 84443; 86481; 86704; 86706; 86709; 86735; 86762; 86765; 86780; 86803; 87340; 87389

== ENCOUNTER 2024-05-03 12:18 | Outpatient (REF) | payer OTHER, SELFPAY ==
--- NOTE | ~2024-05-03 | XR_ITS ---
EXAMINATION: XR CHEST CLINICAL INFORMATION: cough and chest pain COMPARISON: None available. TECHNIQUE: 2 views of the chest were obtained. FINDINGS: The lungs are clear. The cardiomediastinal silhouette is normal in size. There is no pleural effusion or pneumothorax. No acute osseous abnormality. XR/XR chest 2V IMPRESSION: No acute cardiopulmonary findings. Electronically signed by: Guille Castro MD 05/04/2024 09:35 AM [facility] [place]
== END 2024-05-03 12:19 | disposition home or self-care (01) ==
LOC: HO.HHCX 12:18
PROVIDERS: Visit Provider Nurse Practitioner Family
DX: J45.901 Unspecified asthma with (acute) exacerbation (principal)
CPT/HCPCS: 71046

== ENCOUNTER 2024-09-12 10:34 | Day surgery (SDC) | payer OTHER, SELFPAY ==
[2024-09-08 07:46] VITALS: BMI 37.2
--- NOTE | 2024-09-11 12:55 | HO.ANESPROP2 ---
HPI - Anesthesia Eval Consult details Narrative: 48yo F for Upper Endoscopy and Colonoscopy PMFSH Active Problems Active Problems: All Active Problems Upper abdominal pain (Acute) Past Medical History Medical History Asthma Upper abdominal pain Family History Family History Maternal Grandmother Breast cancer Father Diabetes HTN (hypertension) Schizophrenia Stroke Paternal Grandfather Stroke Diabetes HTN (hypertension) Mother Diabetes HTN (hypertension) Heart problem Other History of esophageal cancer History of kidney cancer Stomach cancer Throat cancer Uterine cancer Surgical History Surgical History History of esophagogastroduodenoscopy (EGD) History of appendectomy History of tubal ligation History of umbilical hernia repair Social History Social History Alcohol intake: never Patient Tobacco Use Status: Never used Tobacco Meds Allergies Allergy/AdvReac Type Severity Reaction Status Date / Time morphine Allergy Unknown Unknown Verified 08/16/23 10:03 ciprofloxacin [From Cipro] Allergy Difficulty Verified 08/16/23 10:03 Breathing IV dye Allergy Severe Hives Uncoded 08/16/23 10:17 Home Medications ?Medication ?Instructions ?Recorded ?Confirmed ?Last Taken ?Type albuterol sulfate 90 mcg/actuation 2 puff inhalation Q6H PRN asthma 10/07/20 12/04/22 Unknown History aerosol inhaler (ProAir HFA) ergocalciferol (vitamin D2) 1,250 1,250 mcg PO QWEEK 08/16/23 Unknown History mcg (50,000 unit) capsule Exam Height,Weight and Vital Signs: Height 4 ft 11 in Weight 83.461 kg Assessment and Plan Assessment Anesthesia Assessment: Chart Reviewed
[2024-09-12 10:48] VITALS: BMI 38.0
[2024-09-12 10:54] VITALS: BP 117/82; PULSE 95; RESP 15; TEMP 36.6; O2SAT 93
[2024-09-12] MEDS: Lactated Ringers 1,000 ML 100 ML IVCONT (11:28)
--- NOTE | 2024-09-12 11:31 | P.CONAN_ITS ---
[facility] Active Problems Active Problems: All Active Problems Upper abdominal pain (Acute) Past Medical History Medical History Hx of ulcer disease GERD (gastroesophageal reflux disease) Asthma Upper abdominal pain Functional capacity: independent ambulation Patient : No Family History Family History Maternal Grandmother Breast cancer Father Diabetes HTN (hypertension) Schizophrenia Stroke Paternal Grandfather Stroke Diabetes HTN (hypertension) Mother Diabetes HTN (hypertension) Heart problem Other History of esophageal cancer History of kidney cancer Stomach cancer Throat cancer Uterine cancer Family history of problems with anesthesia: No Surgical History Surgical History History of surgery on arm History of esophagogastroduodenoscopy (EGD) History of appendectomy History of tubal ligation History of umbilical hernia repair History of Problems with Anesthesia: No Social History Social History Alcohol intake: never Patient Tobacco Use Status: Never used Tobacco Use of substances other than those prescribed or required for medical reasons: No Are you DNR?: No Advance Directives: No Advance Directives Information Provided: Yes Meds Allergies Allergy/AdvReac Type Severity Reaction Status Date / Time morphine Allergy Unknown Unknown Verified 09/12/24 10:46 ciprofloxacin [From Cipro] Allergy Difficulty Verified 09/12/24 10:46 Breathing IV dye Allergy Severe Hives Uncoded 08/16/23 10:17 Active Medications: Current Medications Albuterol Sulfate (Albuterol Sulfate (0.083%) 2.5 Mg/3 Ml Vial.Neb) 2.5 mg INHALE ONCE PRN PRN Reason: Shortness of Breath/Wheezing Lactated Ringer's (Lr) 1,000 mls @ 100 mls/hr IVCONT .Q10H AURA Last Admin: 09/12/24 11:28 Dose: 100 mls/hr Home Medications ?Medication ?Instructions ?Recorded ?Confirmed ?Last Taken ?Type albuterol sulfate 90 mcg/actuation 2 puff inhalation Q6H PRN asthma 10/07/20 09/12/24 Unknown History aerosol inhaler (ProAir HFA) ergocalciferol (vitamin D2) 1,250 1,250 mcg PO QWEEK 08/16/23 09/12/24 Unknown History mcg (50,000 unit) capsule cyclobenzaprine 10 mg tablet 10 mg PO BEDTIME 09/12/24 09/12/24 Unknown History Exam Height,Weight and Vital Signs: Height 4 ft 11 in Weight 85.275 kg Last Vital Signs Temp 97.9 F 09/12/24 10:54 Pulse 95 09/12/24 10:54 Resp 15 09/12/24 10:54 BP 117/82 09/12/24 10:54 Pulse Ox 93 09/12/24 10:54 O2 Del Method Room Air 09/12/24 10:54 Airway Mallampati Class: III TM Dist: >3cm Neck ROM: Full Heart: RRR Lungs: CTA Assessment and Plan Assessment Anesthesia Assessment: Anesthesia Plan Discussed and Chart Reviewed Final Anesthetic Review Family History of Problems with Anesthesia: No History of Problems with Anesthesia: No NPO: Yes ASA Class: II Final Preanesthetic Review: Meds/Allgs Chart Reviewed, Consent Obtained/Reviewed and Anes Risks/Benef Reviewed Patient Risk: Low Procedure Risk: Low Anesthetic Plan Anesthetic Plan: MAC: Disposition: Standard PACU
--- NOTE | 2024-09-12 12:35 | MHC.SHP ---
Pre-Procedural Eval Section A - 24 Hr Update-Section A only Date of Service: 09/12/24 Section B - Complete if H&P > 30 days Chief Complaint: esophagitis, gastritis, screening Details of Present Illness: Asthma Upper abdominal pain Surgical History History of esophagogastroduodenoscopy (EGD) History of appendectomy History of tubal ligation History of umbilical hernia repair Present Medications: see Short Stay Collaborative assessment Allergies: Allergies Allergy/AdvReac Type Severity Reaction Status Date / Time morphine Allergy Unknown Unknown Verified 09/12/24 10:46 ciprofloxacin [From Cipro] Allergy Difficulty Verified 09/12/24 10:46 Breathing IV dye Allergy Severe Hives Uncoded 08/16/23 10:17 Review of Systems Review of Systems Comment: 10 point ROS negative Exam Exam Comment: Gen appear: No acute distress HEENT: no icterus Chest: No overt resp distress Abd: soft, nontender, nondistended Psych: Stable affect, answering questions appropriately Neuro: A/Ox3 noted to move all extremities spontaneously Ext: no peripheral edema Plan Diagnosis/Plan: Unchanged I have reviewed the history and physical and performed a pertinent physical examination on my patient. No changes have occurred unless specified. Time Spent With Patient Time: Total time managing care of this patient today ____ minutes.
--- NOTE | 2024-09-12 13:32 | P.OPN-COLO_ITS ---
Colonoscopy Operative Note Operative Note Date of Service: 09/12/24 Narrative: Procedure: Upper endoscopy and colonoscopy Indication: Hx of esophagitis, gastritis, screening for crc ca Endoscopist: Francine Knowles MD Anesthesia Provider: Dr Desirae John Anesthesia type: MAC Instrument: GIF-H190 and PCF-[id number] EGD Procedure:?? The procedure, indications, preparation and potential complications were reviewed with the patient, who indicated understanding and gave written informed consent to proceed. The endoscope was introduced through the mouth, and advanced to the 2nd part of the duodenum. The mucosa was carefully examined on slow withdrawal of the endoscope. The patient tolerated the procedure well. There were no immediate complications.? EGD Findings:? * Esophagus:? Linear ulcerations and erosions measuring 10 mm involving at least 50% of the circumference The Z-line was at 32 cm displaced by a hiatal hernia with the diaphragmatic hiatus at 36 cm. * Stomach:? Normal gastric mucosa. Large sessile and pedunculated polyps in the fundus previously sampled as FGPs. Cold snare polypectomy was performed for the polyps measuring > 10 mm to r/o dysplasia. Retroflexion was performed in the cardia showing Hill grade III hiatal hernia. * Duodenum:? Normal duodenal mucosa. Colonoscopy Procedure:? The patient was then turned for the colonoscopy. A digital rectal exam was performed which was normal.? A distal attachment cap was affixed to the tip of the scope and the colonoscope was then inserted through the anus and advanced through the colon and advanced to the cecum at 75 cm and terminal ileum.? Appendiceal orifice and ileocecal valve were identified. Mucosa was carefully examined under high definition white light as the instrument was slowly withdrawn in a retrograde panoramic fashion. Retroflexion was performed in ascending colon and rectum. The procedure was not difficult. The quality of the prep was BBPS: 2+3+2 = adequate Withdrawal time 13 minutes Limitations: No limitations Findings: Mucosa: Normal colon and terminal ileum mucosa. Protruding lesions: * 1 sessile polyp of size 2 mm in ascending colon. Cold snare polypectomy was performed. The polyp was completely removed and retrieved. * Medium internal hemorrhoids without stigmata of recent bleeding. Impression: 1. Grade C esophagitis 2. Hiatal hernia 3. Gastric polyps 4. Normal duodenum 5. Normal colon and terminal ileum mucosa 6. 1 polyp removed 5. Internal hemorrhoids Recommendations:?? * Follow-up path results * Avoid NSAIDs * Stop pantoprazole and pepcid. Start esomeprazole 20 mg BID x 8-12 weeks and then once daily * Recommend outpatient barium swallow for evaluation of reflux and hiatal hernia * Repeat EGD to be booked in a few months to assess for healing of esophagitis and r/o underlying BE * Repeat colonoscopy for CRC screening in 7-10 years.
[2024-09-12 13:33] VITALS: BP 90/56; PULSE 99; RESP 16; TEMP 36.5; O2SAT 95
[2024-09-12 13:48] VITALS: BP 118/77; PULSE 78; RESP 16; O2SAT 95
--- NOTE | 2024-09-12 14:01 | HO.POSTANES ---
Post Anesthesia Evaluation Post Anesthesia Evaluation Date of Service: 09/12/24 Vital Signs: Vital Signs Temp Pulse Resp BP Pulse Ox O2 Del Method 09/12/24 13:48 78 16 118/77 95 Room Air 09/12/24 13:33 97.7 F 99 16 90/56 L 95 Room Air 09/12/24 10:54 97.9 F 95 15 117/82 93 Room Air Anesthesia: Monitored Mental Status: Awake Pain Control: Satisfactory Nausea/Vomiting: None Hydration: Adequate Anesthesia-Related Issues: No Anes. Related Issues
[2024-09-12 14:04] VITALS: BP 119/79; PULSE 74; RESP 16; TEMP 36.2; O2SAT 96
== END 2024-09-12 14:23 | disposition home or self-care (01) ==
PROVIDERS: PCP Internal Medicine; Visit Provider Internal Medicine
PROC: (CPT 45385; principal; 2024-09-12 12:00)
DX: Z12.11 Encounter for screening for malignant neoplasm of colon (principal); K63.5 Polyp of colon; K57.30 Diverticulosis of large intestine without perforation or abscess without bleeding; K64.8 Other hemorrhoids; K31.7 Polyp of stomach and duodenum; K22.9 Disease of esophagus, unspecified; K20.80 Other esophagitis without bleeding; K44.9 Diaphragmatic hernia without obstruction or gangrene; K21.9 Gastro-esophageal reflux disease without esophagitis; J45.909 Unspecified asthma, uncomplicated; Z79.899 Other long term (current) drug therapy
CPT/HCPCS: 45385; 43251; 88305; 88342; J2003; J2704

== ENCOUNTER → 2024-09-12 10:34 | Outpatient (BNV) | payer OTHER, SELFPAY | PROVIDERS: PCP Internal Medicine; Visit Provider Internal Medicine | DX: Z12.11 Encounter for screening for malignant neoplasm of colon (principal); K63.5 Polyp of colon; K64.8 Other hemorrhoids; K31.7 Polyp of stomach and duodenum; K20.90 Esophagitis, unspecified without bleeding; K29.70 Gastritis, unspecified, without bleeding | CPT/HCPCS: 43251; 45385 ==

== ENCOUNTER 2024-10-02 08:33 | Outpatient (AMB) | payer OTHER, SELFPAY ==
--- NOTE | 2024-10-02 08:35 | A.OFFVIS_ITS ---
Vital Signs 10/02/24 08:44 Height 4 ft 11 in Weight 188 lb BMI 38.0 BP 116/82 Blood Pressure Location Lt brachial Position Sitting Pulse 88 Pulse Source Pulse Oximeter Pulse Oximetry (%) 96 Oxygen Delivery Method Room Air Intake Visit Reasons: S/P double; Dr. Knowles Intake Note: ESTABLISHED PATIENT for s/p duo w/ BZ Chief Complaint; C/O persistent chronic sx. Pt has not been taking her medications due to confusion s/p duo as to which if not all medications she was supposed to be taking. Therefore, pt has not been taking any of her meds and did not call to inquire. Pt also not taking vitamin D as originally instructed. 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 Knowles: Details: LAST VISIT: Upper abdominal pain Chronic idiopathic constipation GERD (gastroesophageal reflux disease) Postprandial epigastric pain Left upper quadrant pain Plan Continue pantoprazole and sucralfate. Patient will start taking senna daily and continue taking MiraLax. Patient continues occasional epigastric discomfort postprandially we will send her for upper endoscopy to further evaluate for gastritis, duodenitis, esophagitis, gastric or peptic ulcer, Patel's, H pylori. Patient had no issues with anesthesia in the past. Not on any anticoagulation medication. No history of sleep apnea. What to expect before during and after the procedure discussed patient. Stressed the importance of good bowel prep and clear liquid diet day before the procedure. Patient will be seen after the procedure, sooner on as needed basis. She is agreeable to this plan and verbalizes understanding of instructions. She was given the opportunity to ask questions and all questions answered. ? Thank you for allowing me to participate in her care Medications New sennosides (Natural Senna Laxative) 17.2 mg (2 x 8.6 mg) PO BEDTIME 180 tabs 3RF constipation K59.00 bisacodyl (Dulcolax (bisacodyl)) take 4 tabs at noon the day before your colonoscopy 20 mg (4 x 5 mg) PO ONCE 1 day 4 tabs 0RF Z12.11 polyethylene glycol 3350 (Miralax) As directed by gastroenterology department at [facility] 238 grams PO ONCE 238 grams 0RF Z12.11 UPPER ENDOSCOPY AND COLONOSCOPY EGD Findings:? * Esophagus:? Linear ulcerations and erosions measuring 10 mm involving at least 50% of the circumference The Z-line was at 32 cm displaced by a hiatal hernia with the diaphragmatic hiatus at 36 cm. * Stomach:? Normal gastric mucosa. Large sessile and pedunculated polyps in the fundus previously sampled as FGPs. Cold snare polypectomy was performed for the polyps measuring > 10 mm to r/o dysplasia. Retroflexion was performed in the cardia showing Hill grade III hiatal hernia. * Duodenum:? Normal duodenal mucosa. Colonoscopy Procedure:? The patient was then turned for the colonoscopy. A digital rectal exam was performed which was normal.? A distal attachment cap was affixed to the tip of the scope and the colonoscope was then inserted through the anus and advanced through the colon and advanced to the cecum at 75 cm and terminal ileum.? Appendiceal orifice and ileocecal valve were identified. Mucosa was carefully examined under high definition white light as the instrument was slowly withdrawn in a retrograde panoramic fashion. Retroflexion was performed in ascending colon and rectum. The procedure was not difficult. The quality of the prep was BBPS: 2+3+2 = adequate Withdrawal time 13 minutes Limitations: No limitations Findings: Mucosa: Normal colon and terminal ileum mucosa. Protruding lesions: * 1 sessile polyp of size 2 mm in ascending colon. Cold snare polypectomy was performed. The polyp was completely removed and retrieved. * Medium internal hemorrhoids without stigmata of recent bleeding. Impression: 1. Grade C esophagitis 2. Hiatal hernia 3. Gastric polyps 4. Normal duodenum 5. Normal colon and terminal ileum mucosa 6. 1 polyp removed 5. Internal hemorrhoids Recommendations:?? * Follow-up path results * Avoid NSAIDs * Stop pantoprazole and pepcid. Start esomeprazole 20 mg BID x 8-12 weeks and then once daily * Recommend outpatient barium swallow for evaluation of reflux and hiatal hernia * Repeat EGD to be booked in a few months to assess for healing of esophagitis and r/o underlying BE * Repeat colonoscopy for CRC screening in 7-10 years. PATHOLOGY RESULTS Diagnosis A. Gastric body, polyps: Fundic gland polyps with minimal chronic inactive inflammation; negative for H.pylori, intestinal metaplasia and dysplasia. B. Colon, ascending, polyp: Colonic mucosa with lymphoid aggregates and pigmented lamina propria macrophages; no adenomatous dysplasia seen TODAY'S VISIT Patient is here today for follow-up and to discuss upper endoscopy and colonoscopy results. Patient denies any ill effects from the prep, anesthesia or procedure itself. Patient reports that she was unable to get her Nexium for couple weeks after it was ordered. However she states that she is taking it now and is doing better. However patient reports that she still has epigastric burning and left upper quadrant pain after eating. Gastric polyp found minimal chronic inactive inflammation. Grade C esophagitis. Patient has barium swallow scheduled next month. Patient reports bowel movements better with senna. Denies melena, hematochezia. Patient is interested in losing weight, however patient was not very successful in the past. Patient reports significant weight in the past couple years [facility] Medical History Hx of ulcer disease GERD (gastroesophageal reflux disease) Asthma Upper abdominal pain Surgical History History of surgery on arm History of esophagogastroduodenoscopy (EGD) History of appendectomy History of tubal ligation History of umbilical hernia repair Family History Maternal Grandmother Breast cancer Father Diabetes HTN (hypertension) Schizophrenia Stroke Paternal Grandfather Stroke Diabetes HTN (hypertension) Mother Diabetes HTN (hypertension) Heart problem Other History of esophageal cancer History of kidney cancer Stomach cancer Throat cancer Uterine cancer Social History Alcohol intake: never Patient Tobacco Use Status: Never used Tobacco Review of Systems Const Denies weight gain and Denies weight loss ENT Reports no additional complaints, Denies dysphagia and Denies odynophagia Card Reports no additional complaints Resp Reports no additional complaints GI Reports abdominal pain (LUQ, RUQ), Denies belching, Denies melena, Reports bloating, Denies change in bowel habits, Reports constipation, Denies dysphagia, Denies excessive flatus, Denies dyspepsia, Reports heartburn, Denies diarrhea, Denies loose stools, Denies nausea, Denies odynophagia and Denies vomiting Reports no additional complaints Musc Reports no additional complaints Neuro Reports no additional complaints Psych Reports no additional complaints Endo Reports no additional complaints Physical Exam Vital Signs: Last Vital Signs Pulse 88 10/02/24 08:44 BP 116/82 10/02/24 08:44 Pulse Ox 96 10/02/24 08:44 Oxygen Delivery Method Room Air 10/02/24 08:44 BMI result Body Mass Index 38.0 Const General: healthy appearing, no acute distress and well developed Nutritional Appearance: obese Orientation/consciousness: patient oriented x3 Resp Effort & Inspection: normal respiratory effort, able to speak in complete sentences, no tracheal deviation and symmetric chest movement Auscultation: clear to auscultation bilaterally Cardio Rate: regular rate GI Inspection: Yes normal to inspection, No distended and Yes obesity Palpation (GI): Soft to palpation, not firm, nontender and No hepatosplenomegaly present Auscultation: normal bowel sounds General: Yes no CVA tenderness Back/Spine/Pelvis Back: no CVA tenderness Skin General skin exam: elasticity normal, turgor normal and dry skin Neuro General: patient oriented x3 Psych Appearance: grossly normal Mental Status: mental status grossly normal Assessment & Plan Assessment & Plan (1) Ponca grade C esophagitis: Code(s): K20.80 - Other esophagitis without bleeding Category: Medical (2) Upper abdominal pain: Code(s): R10.10 - Upper abdominal pain, unspecified Category: Medical (3) Chronic idiopathic constipation: Code(s): K59.04 - Chronic idiopathic constipation (4) GERD (gastroesophageal reflux disease): Code(s): K21.9 - Gastro-esophageal reflux disease without esophagitis Qualifiers: Esophagitis bleeding: without hemorrhage Esophagitis presence: with esophagitis Qualified Code(s): K21.00 - Gastro-esophageal reflux disease with esophagitis, without bleeding (5) Postprandial epigastric pain: Code(s): R10.13 - Epigastric pain (6) Left upper quadrant pain: Code(s): R10.12 - Left upper quadrant pain Plan Patient will continue taking Nexium twice a day and start taking again sucralfate at bedtime. Patient will restart taking vitamin D as ordered. Discussed with patient avoiding dietary triggers and let the stocking. Staying upright for minimal 3 hours after meals discussed with patient. Patient has barium swallow next week. He will need to repeat upper endoscopy in few months. Colonoscopy in 7-10 years. Patient will return to the office in 3 months, sooner on as needed basis. She is agreeable to this plan and verbalizes understanding of instructions. She was given the opportunity to ask questions and all questions answered. Thank you for allowing me to participate in her care Medications: New ergocalciferol (vitamin D2) 1,250 mcg PO QWEEK 30 caps 0RF Refilled sucralfate 1 g PO BEDTIME 30 tabs 4RF R19.7 - Diarrhea, unspecified esomeprazole magnesium 20 mg PO BID 90 days 180 caps 0RF K20.80 - Other esophagitis without bleeding Coding Level of Care Code Est Pt Level 4 (80612) Complex EM visit Add On G2211 Diagnoses Ponca grade C esophagitis K20.80 Upper abdominal pain R10.10 Chronic idiopathic constipation K59.04 Gastroesophageal reflux disease with esophagitis without hemorrhage K21.00 Esophagitis bleeding: without hemorrhage Esophagitis presence: with esophagitis Postprandial epigastric pain R10.13 Left upper quadrant pain R10.12 Time Spent (min) 35 Comment 25 minutes spent with patient and additional 10 minutes spent reviewing her records
[2024-10-02 08:44] VITALS: BP 116/82; PULSE 88; O2SAT 96; BMI 38.0
--- OUTSIDE RECORDS SUMMARY | 2024-10-02 09:04 | XMS_ITS | Encounter Summary ---
Author Organization [employer] Address [address] [place] [address] 7 [place] [address] Care Team Providers Care Building Illuminating Engineer Name Role Phone Susy Edmondson MD Primary Care Provider + Encounter Details Date Type Department Care Team (Late st Contact Info) Description 12/16/2022 Orders Only [facility] MEDICINE [address] [place] [address] [phone] Susy Edmondson MD [address] [place] [address] [phone] Gastric polyp (Primary Dx); Chronic superficial gastritis without bleeding Social History Tobacco Use Types Packs/Day Years Used Date Smoking Tobacco: Never Smokeless Tobacco: Never Alcohol Use Standard Drinks/Week Comments Defer 0 (1 standard drink = 0.6 oz pur e alcohol) Comments No Sex and Gender Information Value Date Recorded Sex Assigned at Female 04/06/2022 10:37 AM EDT Legal Sex Female 10:37 AM EDT Gender Identity Female 04/06/2022 10:37 AM EDT Sexual Orientation Straight 04/06/2022 10 :37 AM EDT documented as of this encounter Plan of Treatment Upcoming Encounters Date Type Department Care Team (Late st Contact Info) Description 10/09/2024 4:00 PM EDT Office Visit [facility] MEDICINE [address] [place] [address] [phone] Susy Edmondson MD [address] [place], [place] [phone] documented as of this encounter Visit Diagnoses Diagnosis Gastric polyp- Primary Benign neoplasm of stomach Chronic superficial gastritis without bleeding documented in this encounter Care Teams Building Illuminating Engineer Relationship Specialty Start Date End Date Susy Edmondson MD [address] [place] [phone] PCP - General Family Medicine 08/21/20 documented as of this encounter
--- OUTSIDE RECORDS SUMMARY | 2024-10-02 09:04 | XMS_ITS | Encounter Summary ---
Author Organization [employer] [facility] Address [address] [place] [address] [address] [place] [address] Care Team Providers Care Rental Sales Representative Name Role Phone Susy Edmondson MD Primary Care Provider + Reason for Visit * Reason Comments Med Refill Encounter Details Date Type Department Care Team (Late st Contact Info) Description 05/17/2023 Refill [facility] MEDICINE [address] [place] [address] [phone] Susy Edmondson MD [address] [place], [place] [phone] Social History Tobacco Use Types Packs/Day Years [...] Encounters Date Type Department Care Team (Late Contact Info) Description 10/09/2024 4:00 PM EDT Office Visit [facility] [address] [place] [phone] Susy Edmondson MD [address] [place], [place] [phone] documented as of this encounter Visit Diagnoses Not on filedocumented in this encounter Care Teams Rental Sales Representative Relationship Specialty Start Date End Date Susy Edmondson MD [address] [place] [phone] PCP - General Family Medicine 08/21/20 documented as of this encounter
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
--- OUTSIDE RECORDS SUMMARY | 2024-10-02 09:04 | XMS_ITS | Encounter Summary ---
Author Organization [employer] Address [address] [place] [address] 7 [place] [address] Care Team Providers Care Roof Foreman Name Role Phone Susy Edmondson MD Primary Care Provider + Reason for Visit * Reason Onset Date Comments Letter for School/Work 07/08/2023 Encounter Details Date Type Department Care Team ([facility] st Contact Info) Description 07/08/2023 Telephone [facility] MED[facility]INE [address] [place], [place] [phone] Susy Edmondson MD [address] [place], [place] [phone] Letter for School/Work Social History Tobacco Use Types Packs/Day Years [...] encounter Miscellaneous Notes * Telephone Encounter - Sindi Sanders RN - 07/13/2023 10:10 AM EST Letter generated and sent to scan. [facility] to pt informing that note is available through [facility] and if pt would like copy mailed to us to return call to office to inform. * Telephone Encounter - Aryan Morris - 07/08/2023 3:28 PM EST Tc from pt had televisit with Dr. Drew 07/07/23 requesting letter to excuse her from work due to covid. If any questions please contact pt at [phone] documented in this encounter Plan of Treatment Upcoming Encounters Date Type Department Care Team (Late st Contact Info) Description 10/09/2024 4:00 PM EDT Office Visit [facility] MEDICINE [address] [place] [address] [phone] Susy Edmondson MD [address] [place] [phone] documented as of this encounter Visit Diagnoses Not on filedocumented in this encounter Care Teams Roof Foreman Relationship Specialty Start Date End Date Susy Edmondson MD [address] [place] [address] [phone] PCP - General Family Medicine 08/21/20 documented as of this encounter
--- OUTSIDE RECORDS SUMMARY | 2024-10-02 09:06 | XMS_ITS | Encounter Summary ---
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 [address], [place] [phone] Susy Edmondson MD [address] [place] [address] Appointment Request Social History Tobacco Use Types Packs/Day Years Used Date Smoking Tobacco: Never Smokeless Tobacco: Never Alcohol Use Standard Drinks/Week Comments Defer 0 (1 standard drink = 0.6 oz pur e alcohol) Housing Stability Answer Date Recorded What is your housing situation today? I have aparna zavala 08/26/[address] you li ve. Do you have problems with any of the following? None of the above 08/26/2023 Food Insecurity Answer Date Recorded Within the past 12 months, y ou worried that your food would run out before you got money to buy more: Never True 08/26/2023 Within the past 12 months,th e food you bought just didn't last and you didn't have enough money to get more: Never True Transportation Answer Date Recorded In the past 12 months, has l ack of transportation kept you from medical appts, meetings, work or from getting things needed for daily living? No 08/26/2023 Utilities Answer Date Recorded In the past 12 months, has t he electric, gas, oil or water company threatened to shut off services in your home? No 08/26/2023 Comments No Sex and Gender Information Value Date Recorded Sex Assigned at Female 04/06/2022 10:37 AM EDT Legal Sex Female 10:37 AM EDT Gender Identity Female 04/06/2022 10:37 AM EDT Sexual Orientation Straight 04/06/2022 10 :37 AM EDT documented as of this encounter Miscellaneous Notes * Telephone Encounter - David Ochoa - 08/25/2023 3:07 PM EDT Tc from patient calling to reschedule appt from 06/10 documented in this encounter Plan of Treatment Upcoming Encounters Date Type Department Care Team (Late st Contact Info) Description 10/09/2024 4:00 PM EDT Office Visit [facility] [address] [place] [phone] Susy Edmondson MD [address] [place] [address] documented as of this encounter Visit Diagnoses Not on filedocumented in this encounter Care Teams Auto Dismantler Relationship Specialty Start Date End Date Susy Edmondson MD [address] [place] [address] PCP - General Family Medicine 08/21/20 documented as of this encounter
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
--- OUTSIDE RECORDS SUMMARY | 2024-10-02 09:06 | XMS_ITS | Encounter Summary ---
Author Organization [employer] Address [address] [facility] 7 [place] [address] Care Team Providers Care Glassware Engraver Name Role Phone Susy Edmondson MD Primary Care Provider + Reason for Visit * Reason Onset Date Comments Nurse Triage 05/23/2024 Encounter Details Date Type Department Care Team ([facility] st Contact Info) Description 05/23/2024 Telephone [facility] [address] [place], [place] [phone] Susy Edmondson MD [address] [place] [address] Nurse Triage Social History Tobacco Use Types Packs/Day Years [...] encounter Miscellaneous Notes * Telephone Encounter - Elizabeth Bhardwaj RN - 05/23/2024 3:40 PM EST Triage call, Pt had questions regarding medications. Pt was seen in [facility] 05/03/24 for asthma. Orderswere given for prednisone, wixela inhub 100/50 MCG/ACT aerosol powder inhaler . Pt didn't receive the wixela due to cost. Pt has been using flovent HFA 220 inhaler of husbands instead. Pt is advised not to use other peoples medications. Pt reports uses albuterol machine in AM. Pt will be working from home the rest of the week so will be able to use the albuterol nebulizer q8 hrs. as prescribed. Pt reports asthma has not gotten better may be worse. Pt does have apt 05/26/24 with provider. Pt is advised can come to [facility] if needed. Pt reports will wait for apt. Pt is advised to call the pharmacy with questions about medications. Pt agrees and will call to see if possible to obtain the wixela prescription at this time. Pt agrees with disposition and plan. Pt insurance is verified as active. Protocol Used: Information Only Call - No Triage (Adult) Protocol-Based Disposition: Home Care Positive Triage Question: * General information question, no triage required and triager able to answer question * All higher-acuity triage questions were negative Care Advice Discussed: * Reasons To Call Back - New symptoms develop - You have more questions - You become worse * Telephone Encounter - Maira Katgo - 05/23/2024 3:15 PM EST Tc from pt Symptom: Asthma Attack - Caller Reports Outcome: Transfer to a nurse or provider NOW! Reason: Struggling for each breath (severe trouble breathing) The caller accepted this outcome. Please contact: documented in this encounter Plan of Treatment Upcoming Encounters Date Type Department Care Team (Late st Contact Info) Description 10/09/2024 4:00 PM EDT Office Visit [facility] [address] [place] [address] Susy Edmondson MD [address] [place] [address] documented as of this encounter Visit Diagnoses Not on filedocumented in this encounter Additional Health Concerns Assessment Noted Time PHQ-9 Depression Total Score: 0 09/06/19 24 10:59 AM EDT documented as of this encounter Care Teams Glassware Engraver Relationship Specialty Start Date End Date Susy Edmondson MD [address] [place], [place] [phone] PCP - General Family Medicine 08/21/20 documented as of this encounter
--- OUTSIDE RECORDS SUMMARY | 2024-10-02 09:06 | XMS_ITS | Encounter Summary ---
Author Organization [employer] Address [address] [facility] 7t [place] [address] Care Team Providers Care Service Delivery Analyst Name Role Phone Ssuy Edmondson MD Primary Care Provider + Reason for Visit * Reason Comments Med Refill Encounter Details Date Type Department Care Team (Late st Contact Info) Description 09/10/2023 Refill [facility] [address] [place], [place] [phone] Lyudmila Puri FNP [address] [place] [address] Social History Tobacco Use Types Packs/Day Years [...] Description 10/09/2024 4:00 PM EDT Office Visit [facility] [address] [place] [address] Susy Edmondson MD [address] [place] [address] documented as of this encounter Visit Diagnoses Not on filedocumented in this encounter Additional Health Concerns Assessment Noted Time PHQ-9 Depression Total Score: 0 09/06/19 24 10:59 AM EDT documented as of this encounter Care Teams Service Delivery Analyst Relationship Specialty Start Date End Date Susy Edmondson MD [address] [place] [id number] PCP - General Family Medicine 08/21/20 documented as of this encounter
--- OUTSIDE RECORDS SUMMARY | 2024-10-02 09:06 | XMS_ITS | Encounter Summary ---
Author Organization [facility] Address [address] [place] [address] Care Team Providers Care Appliance Parts Counter Clerk Name Role Phone Pcp, No Primary Care Provider Unavailabl e Encounter Details Date Type Department Care Team ([facility] st Contact Info) Description 07/29/2018 Telephone [facility] [place] [address] [place] [phone] [address] [place] [address] Social History Tobacco Use Types Packs/Day Years Used Date Smoking Tobacco: Never Smokeless Tobacco: Never Alcohol Use Standard Drinks/Week Comments No 0 (1 standard drink = 0.6 oz pur e alcohol) AUDIT-C Answer Date Recorded Frequency of Alcohol Consumption Never 07/26/2018 Average Number of Drinks Not on file 019 Frequency of Binge Drinking Not on file 07/08 Comments Unknown Sex and Gender Information Value Date Recorded Sex Assigned at Not on file Legal Sex Female 3:20 PM EDT Gender Identity Not on file Sexual Orientation Not on file documented as of this encounter Miscellaneous Notes * Telephone Encounter - RT Jesus - 07/29/2018 9:08 AM EST Spoke with patient/mph documented in this encounter Plan of Treatment Not on file documented as of this encounter Visit Diagnoses Not on filedocumented in this encounter Care Teams Appliance Parts Counter Clerk Relationship Specialty Start Date End Date Pcp, No PCP - General General Medicine 07/26/18 documented as of this encounter
--- OUTSIDE RECORDS SUMMARY | 2024-10-02 09:06 | XMS_ITS | Clinical Summary ---
Author Organization [facility] Address [address] [place] [address] Care Team Providers Care Rehabilitation Services Coordinator Name Role Phone Sylvia Del iCd Primary Care Provider Unavailable Allergies Active Allergy Reactions Criticality Noted Date Comments Aspirin 12/12/2009 Ciprofloxacin Hcl 01/01/2012 Reactions: Dizziness , [employer] Comment: [id number]: Red cheeks,pale complexion. S.B. Latex 10/16/2009 Metronidazole 10/16/2009 [employer] Comment: Category: Adverse Reaction; Morphine 12/28/2019 Medications Omeprazole (PriLOSEC) [address] capsule TAKE ONE CAPSULE BY MOUTH ONCE DAILY DIRECTED 90 0 9 Active Lidocaine (LIDODERM) 5 % patch APPLY A PATCH AND LEAVE IT FOR 12h per day. 30 3 9 Active Methocarbamol (ROBAXIN) 500 MG tablet Take 1 t 2 tablets at night as needed 20 1 9 Active Meloxicam (MOBIC) 15 MG tablet TAKE 1 TABLET DAILY NEEDED. 1 0 0 Active Ondansetron (ZOFRAN-ODT) 4 MG disintegrating tablet Take 1 tab Q 6 hrs PRN nausea 20 1 0 Active Active Problems Problem Noted Date Diagnosed Date Hearing loss 12/28/2019 Overview (07/11/2023): Impression - [id number]: I ordered audiometry test and evaluation. Nausea 12/22/2019 Overview (07/11/2023): Impression - [id number]: Nausea with headache could be recurrent of migraine symptoms. Will treat symptomatically. Unlikely but not impossible presentation for spann virus Adjustment reaction with brief depressive reacti on 08/08/2019 Overview (07/11/2023): Impression - [id number]: I believe secondary to her loss in the family and starting a new job that same time. I gave the patient a letter so should stay home for this week and she will start taking fluoxetine, low dose, 10 milligrams daily and I will follow her up within 1 month. Offered support. Advised to start psychotherapy as well. Impression - [id number]: Seems resolved. Will monitor. The patient will let me know if she starts developing any symptoms again. Back pain, chronic 04/13/2019 Overview (07/11/2023): Impression - [id number]: Unclear etiology; likely muscle skeletal in nature. I order x-rays to further assess and I refer the patient for physical therapy. If not better after 10 sessions I would order MRI to further assess for disc disease and spinal stenosis. I prescribed methocarbamol as needed. I advised the patient not to take the medication if planing to drive and not to mix it with alcohol. She seems to understand. Impression - [id number]: I advised the patient to use the lidocaine patch throughout the day and to take the meloxicam and methocarbamol in the morning. She should take methocarbamol as well at night if needed. She will do that for 1 week and update me at the end of the week. I advised her to do some stretching exercise for the back. Arthralgia of multiple joints 12/17/2015 Impaired fasting glucose 06/29/2014 Anemia 12/14/2013 Abdominal pain 01/07/2012 Overview (07/11/2023): Impression - [id number]: Patient is known to have GERD and it is likely secondary to that versus dyspepsia. I refer the patient back to GI specialist and she might need an endoscopy. Continue with omeprazole for now. Will monitor the symptoms. Advised to call or come back if not improving/worsening. Myalgia and myositis 02/20/2010 Aspirin Toxicity 10/16/2009 Esophageal reflux 10/16/2009 Asthma 10/16/2009 Overview (07/11/2023): Impression - [id number]: I believe that the patient is a high risk for mortality if developing spann virus. I will give her a letter so she can social contact worker. I believe that it will decrease her exposure and also help with the anxiety. Impression - [id number]: I believe that the patient is a high risk for mortality if developing spann virus. I will give her a letter so she can social contact worker. Encounter for preventive health examination 06/08 Immunizations Name Administration Dates Next Due Hep B (adult) 04/25/2014,11/30/2013,11/02/2013 Influenza (SEASONAL) - 02/21/2014,03/24/2010,06/2005 Influenza,split(incl.purifie d surface antigen) 04/03/2006,04/14/2005 Tdap 11/02/2013,06/07/1999 Social History Tobacco Use Types Packs/Day Years Used Date Smoking Tobacco: Never Assessed Comments:Smoking Status:No c urrent tobacco use Comments Unknown Sex and Gender Information Value Date Recorded Sex Assigned at Not on file Legal Sex Female 4:16 PM EDT Gender Identity Not on file Sexual Orientation Not on file Last Filed Vital Signs Vital Sign Reading Time Taken Comments Blood Pressure 118/80 12/28/2019 3:05 PM EDT Pulse 109 12/28/2019 3:05 PM EDT Temperature 36.4 ??C (97.5 ??F) 12/28/2019 3:05 PM ED T Respiratory Rate 16 12/28/2019 3:05 PM EDT Oxygen Saturation 97% 12/28/2019 3:05 PM EDT Inhaled Oxygen Concentration - - Weight 77.6 kg (170 lb 15.8 oz) 12/28/2019 3:05 PM EDT Height 153.7 cm (5' 0.5 ) 12/28/2019 3:05 PM EDT Body Mass Index 32.84 12/28/2019 3:05 PM EDT Plan of Treatment Health Maintenance Due Date Last Done Comments Hepatitis C Screening 1977 Pap Smear 1993 Pneumococcal (1 of 2 - PCV) 1996 Mammogram/Breast Imaging 2017 015, 08/01/2014, 08/01/2014 Colon Cancer Screening 2022 DTaP/Tdap/Td (3 - Td or Tdap) 11/03/2023 11/02/2013, 06/07/1999 COVID-19 Vaccine ( season) 2024 Influenza (#1) 2024 02/21/2014, 03/07, 04/03/2006, Additional history exists Zoster (Shingrix) (1 of 2) 11/19/2027 Hep B Completed 04/25/2014, 11/06, 11/02/2013 EKG Discontinued 06/27/2014, 06/08, 03/04/2010, Additional history exists LDL Cholesterol Discontinued 06/29/2014, 02/06, 08/17/2009 Physical Discontinued 03/31/2018, 06/08, 03/04/2010 HPV Vaccine Aged Out No longer eligi ble based on patient's age to complete this topic Hep A Aged Out No longer eligi ble based on patient's age to complete this topic Hib Aged Out No longer eligi ble based on patient's age to complete this topic Meningococcal ACWY Aged Out No longer eligible based on patient's age to complete this topic Procedures Procedure Name Priority Date/Time Associated Diagnosis Comments MAMMOGRAPHY, DIAGNOSTIC UNILAT - LEFT FC Routine 02/04/2015 5:23 PM EDT LIPID PANEL, PLASMA Routine 06/29/2014 1 :33 PM EST EKG 06/27/2014 2:45 PM EST from Last 3 Months or Most Recently Relevant to Health Maintenance Results * MAMMOGRAPHY, DIAGNOSTIC UNILAT - LEFT FC (02/04/2015 5:23 PM EDT) MAMMOGRAM RESULT probably benign PHCT CONVERSIONS Anatomical Region Laterality Modality BREAST Left Mammography 02/04/2015 5:23 PM EDT us Willam Nair MD IMG MAMMO ORDERABLES Brittani l Result * LIPID PANEL, PLASMA (06/29/2014 1:33 PM EST) LDL Cholesterol 151 PHCT CONVERSIONS 06/29/2014 1:33 PM EST us Willam Nair MD LABORATORY Final Res ult PHCT CONVERSIONS * EKG (06/27/2014 2:45 PM EST) Narrative 06/27/2014 2:45 PM EST Ordered by an unspecified provider. us Unknown Provider CARDIOVASCULAR-NO INBASKET RTG Final Result from Last 3 Months or Most Recently Relevant to Health Maintenance Care Teams Rehabilitation Services Coordinator Relationship Specialty Start Date End Date Sylvia Del Cid PCP - General 01/11/23
--- OUTSIDE RECORDS SUMMARY | 2024-10-02 09:06 | XMS_ITS | Clinical Summary ---
Author Organization [facility] Address [address] [place] [address] Care Team Providers Care Hospital Receiving Clerk Name Role Phone Unavailable Primary Care Provider Unavailabl e Surgical History Surgery Date Site/Laterality Comments TUBAL LIGATION PROCEDURE: HISTORICAL TUBAL LIGATION HERNIA REPAIR PROCEDURE: HISTORICAL HERNIA REPAIR/UMB OTHER SURGICAL HISTORY Right PROCEDURE: HISTORY OTHER; COMMENT: right ulna with repair/ screws Medical History Medical History Date Comments Pressure ulcer DX:Pressure ulce r Unilateral inguinal hernia w ithout obstruction or gangrene DX:Unilateral inguinal herni a without obstruction or gangrene Cystic dysplasia of one kidney D X:Cystic dysplasia of one kidney Hiatal hernia DX:Hiatal hernia HSV infection 2014 DX:HSV infection ; COMMENT: noted on transfer records HSV-2 infection 2018 DX:HSV-2 infecti on; COMMENT: on transfer record Family History Medical History Relation Name Comments Diabetes Father Hypertension Father Uterine cancer Maternal Grandmother Diabetes Mother Hypertension Mother Breast cancer Mother's side 1 Other: thyroid cancer Mother's side 2 Stomach cancer Paternal Grandmother mets Relation Name Status Comments Father Alive Maternal Grandmother Mother Alive Mother's side 1 Alive Mother's side 2 Alive Paternal Grandmother Social History Tobacco Use Types Packs/Day Years Used Date Smoking Tobacco: Never Smokeless Tobacco: Never Alcohol Use Standard Drinks/Week Comments Never 0 (1 standard drink = 0.6 oz pur e alcohol) Comments Unknown Sex and Gender Information Value Date Recorded Sex Assigned at Not on file Legal Sex Female 9:05 PM EST Gender Identity Not on file Sexual Orientation Not on file Obstetrics History Last Filed Vital Signs Vital Sign Reading Time Taken Comments Blood Pressure 122/76 11/19/2023 2:05 PM EDT Pulse 71 11/19/2023 2:05 PM EDT Temperature - - Respiratory Rate - - Oxygen Saturation - - Inhaled Oxygen Concentration - - Weight 84.6 kg (186 lb 9.6 oz) 11/19/2023 2:05 P M EDT Height 151.1 cm (4' 11.5 ) 11/19/2023 2:05 PM ED T Body Mass Index 37.06 11/19/2023 2:05 PM EDT Plan of Treatment Health Maintenance Due Date Last Done Comments Breast Cancer Screening 1977 DTaP,Tdap,and Td Vaccines (1 - Tdap) 1996 Hepatitis B Vaccines (1 of 3 - 19+ 3-dose series) 1996 Colorectal Cancer Screening: Colonoscopy 05/09/2022 Depression Screening 05/09/2022 HIV Screening 05/09/2022 Hepatitis C Screening 05/09/2022 Social Influencers of Health Screening 05/09/2022 COVID-19 Vaccine ( - 2023-2 5 season) 2024 Influenza Vaccine (Season Ended) 2025 Cervical Cancer Screening: P ap Smear 2026 11/19/2023 HIB Vaccines Aged Out No longer eligi [...] on patient's age to complete this topic MMR Vaccines Aged Out No longer eligi ble based on patient's age to complete this topic Meningococcal ACWY Vaccine Aged Out N o longer eligible based on patient's age to complete this topic Meningococcal B Vaccine Aged Out No l onger eligible based on patient's age to complete this topic Pneumococcal Vaccine: Pediat rics (0 to 5 Years) and At-Risk Patients (6 to 64 Years) Aged Out No longer eligi ble based on patient's age to complete this topic RSV Immunization Patients Un sivan 20 months Aged Out No longer eligible b ased on patient's age to complete this topic Varicella Vaccines Aged Out No longer eligible based on patient's age to complete this topic Procedures Procedure Name Priority Date/Time Associated Diagnosis Comments PAP SMEAR Routine 11/19/2023 from Last 3 Months or Most Recently Relevant to Health Maintenance Results * Pap smear (11/19/2023) 11/19/2023 Narrative HISTORICAL TESTING LAB RESULTING AGENCY - 11/26/2023 6:26 AM EDT [id number] THINPREP PAP, IMAGED: NEGATIVE FOR SQUAMOUS INTRAEPITHELIAL LESION AND MALIGNANCY TARUN MILLER(ASCP) (CASE ELECTRONICALLY SIGNED 11 25 2023) RESULT OF APTIMA HIGH RISK HPV ASSAY: HIGH RISK HPV: ??NEGATIVE (SEROTYPES 16,18,31,33,35,39,45,51,52,56,58,59,66,68) COMPLETED ON 2023-11-23 ADEQUACY: SATISFACTORY ENDOCERVICAL/TRANSFORMATION ZONE COMPONENT PRESENT. SOURCE: THINPREP PAP HPV ANY DX: ??REFLEX 16 AND 18, CERVICAL, IMAGED CLINICAL INFORMATION: HPV ANY DIAGNOSIS. HORMONES, LMP 08/04/23, [Z01.419] Nadia ARZOLA LAB CYTOLOGY ORDERABLES Final Result HISTORICAL TESTING LAB RESULTING AGENCY from Last 3 Months or Most Recently Relevant to Health Maintenance
--- OUTSIDE RECORDS SUMMARY | 2024-10-02 09:06 | XMS_ITS | Encounter Summary ---
Author Organization [employer] Address [address] [facility] 7 [place] [address] Care Team Providers Care Memory Care Program Director Name Role Phone Susy Edmondson MD Primary Care Provider + Reason for Visit * Reason Comments Med Refill Encounter Details Date Type Department Care Team (Late st Contact Info) Description 10/01/2024 Refill [facility] [address] [place], [place] [phone] Susy Edmondson MD [address] [place] [address] Social History Tobacco Use Types Packs/Day Years Used Date Smoking Tobacco: Never Passive Smoke Exposure: Never Smokeless Tobacco: Never Alcohol Use Standard Drinks/Week Comments Defer 0 (1 standard drink = 0.6 oz pur e alcohol) Depression Answer Date Recorded Patient Health Questionnaire-9 Score 0 09/06/2023 Patient Health Questionnaire-9 Score 0 09/06/2023 Last PHQ-9: Questionnaire Data Not on file 0 09/06/2023 Housing Stability Answer Date Recorded What is your housing situation today? I have aparna sing 08/26/[address] you li [...] 4:00 PM EDT Office Visit [facility] [address] [place] [address] Susy Edmondson MD [address] [place] [address] documented as of this encounter Visit Diagnoses Not on filedocumented in this encounter Additional Health Concerns Assessment Noted Time PHQ-9 Depression Total Score: 0 09/06/19 24 10:59 AM EDT documented as of this encounter Care Teams Memory Care Program Director Relationship Specialty Start Date End Date Susy Edmondson MD [address] [place] [address] PCP - General Family Medicine 08/21/20 documented as of this encounter
--- OUTSIDE RECORDS SUMMARY | 2024-10-02 09:06 | XMS_ITS | Clinical Summary ---
Author Organization [facility] Address [address] [place] [address] Care Team Providers Care Oil Sprayer Name Role Phone Unavailable Primary Care Provider Unavailabl e Social History Tobacco Use Types Packs/Day Years Used Date Smoking Tobacco: Never Assessed Comments Unknown Sex and Gender Information Value Date Recorded Sex Assigned at Not on file Legal Sex Female 6:15 AM EST Gender Identity Not on file Sexual Orientation Not on file Plan of Treatment Not on file
--- OUTSIDE RECORDS SUMMARY | 2024-10-02 09:06 | XMS_ITS | Clinical Summary ---
Author Organization [facility] Address [address] [place] [address] Care Team Providers Care Director Talent Name Role Phone Unavailable Primary Care Provider Unavailabl e Social History Tobacco Use Types Packs/Day Years Used Date Smoking Tobacco: Never Assessed Sex and Gender Information Value Date Recorded Sex Assigned at Not on file Gender Identity Not on file Sexual Orientation Not on file Plan of Treatment Health Maintenance Due Date Last Done Comments Hepatitis B Vaccines (1 of 3 - 3-dose series) 1977 Hepatitis C Screening 1977 COVID-19 Vaccine (#1) 05/20/1978 Depression Screening 1989 Preventative Health Evaluation 11/19/1995 DTap / Tdap / Td (1 - Tdap) 1996 Cervical Cancer Screening (P ap Smear) 1998 Colon Cancer Screening (Colonoscopy) 2022 Influenza Vaccine (#1) 2024 Pneumococcal Vaccine Aged Out No long er eligible based on patient's age to complete this topic RSV Ped < 20 months Aged Out No longe r eligible based on patient's age to complete this topic
--- OUTSIDE RECORDS SUMMARY | 2024-10-02 09:06 | XMS_ITS | Clinical Summary ---
Author Organization [facility] Address [address] [place] [address] Care Team Providers Care New Media Strategist Name Role Phone Pcp, No Primary Care Provider Unavailabl e Allergies No known active allergies Medications No known medications Social History Tobacco Use Types Packs/Day Years [...] Sign Reading Time Taken Comments Blood Pressure 117/76 07/26/2018 9:24 AM EST Pulse 99 07/26/2018 9:24 AM EST Temperature 36.8 ??C (98.2 ??F) 07/26/2018 9:24 AM ES T Respiratory Rate - - Oxygen Saturation 100% 07/26/2018 9:24 AM EST Inhaled Oxygen Concentration - - Weight 68 kg (150 lb) 07/26/2018 9:24 AM EST Height 149.9 cm (4' 11 ) 07/26/2018 9:24 AM EST Body Mass Index 30.3 07/26/2018 9:24 AM EST Plan of Treatment Health Maintenance Due Date Last Done Comments Hepatitis C Virus Screening 1977 HIV Screening 1990 DTaP/Tdap/Td Vaccines (1 - Tdap) 1996 Hepatitis B Vaccines (1 of 3 - 19+ 3-dose series) 1996 Pap Smear (Ages 21-65) 1998 Mammogram 04/13/2021 04/13/2019, 09/17/2018 Colonoscopy 2022 Influenza Vaccine 01/06/2024 COVID-19 Vaccine (1 2023-2 5 season) 2024 Pneumococcal Vaccine: Pediatric (0-5 Years) and At-Risk Patients (6 to 49 Years) Aged Out No longer eligible b ased on patient's age to complete this topic Procedures Procedure Name Priority Date/Time Associated Diagnosis Comments MG SARAH- BREAST DIAGNOSTIC LEFT Routine 04/13/2019 3:30 PM EST from Last 3 Months or Most Recently Relevant to Health Maintenance Results * MG SARAH- BREAST DIAGNOSTIC LEFT (04/13/2019 3:30 PM EST) Anatomical Region Laterality Modality Other 04/13/2019 3:30 PM EST 04/13/2019 3:30 PM EST Narrative 04/13/2019 4:30 PM EST HISTORY: Patient is 43 years old and is seen for diagnostic evaluation of calcification in the left breast. The patient has no personal history of breast or ovarian cancer. The patient has the following family history of breast cancer: ??great grandmother. FILMS COMPARED: The present examination has been compared to prior imaging studies dated 09/30/2018 and 09/17/2018. SARAH STATEMENT: 3d imaging (digital breast tomosynthesis) was used by the Radiologist in the interpretation of this examination.Computer-aided detection was utilized by the radiologist in the interpretation of this examination. The following digital mammographic views were obtained: left craniocaudal spot compression magnification, left craniocaudal with tomosynthesis, left mediolateral oblique with tomosynthesis, left mediolateral spot compression magnification, and left craniocaudal exaggerated laterally to axilla with tomosynthesis. MAMMOGRAM FINDINGS: The breast is heterogeneously dense, which may obscure small masses. (ACR BIRADS density Category c) * Follow-up examination was performed for the calcifications in the left breast, upper outer quadrant seen on 09/30/2018. On the present examination, there are stable milk of calcium and amorphous calcifications with grouped distribution in the middle third upper outer quadrant of the left breast. IMPRESSION: Stable calcifications in the left breast are probably benign. A short interval follow-up mammogram of the left breast in 6 months is recommended. The patient was informed of these findings at the time of the exam. The patient will receive a lay summary of the results of this breast imaging exam. Lay summaries for mammography examinations will also identify the patient's personal breast tissue composition as required by state law. BIRADS Category 3: Probably Benign Finding(s) Thank you for referring your patient to us, Marii Eisenberg MD [id number] (Electronically Signed - 04/13/2019 16:30) Copy: KENTRELL BERNARDO MD [facility] 8-D CANAL DIGITAL [place] [address] Procedure Note Marii Eisenberg MD - 01/05/2020 HISTORY: Patient is 43 years old and is seen for diagnostic evaluation ofcalcification in the left breast. The patient has no personal history of breast or ovarian cancer. The patient has the following family history of breast cancer: greatgrandmother. FILMS COMPARED: The present examination has been compared to prior imaging studies dated09/30/2018 and 09/17/2018. SARAH STATEMENT: 3d imaging (digital breast tomosynthesis) was used by the Radiologist inthe interpretation of this examination.Computer-aided detection wasutilized by the radiologist in the interpretation of this examination. The following digital mammographic views were obtained: left craniocaudalspot compression magnification, left craniocaudal with tomosynthesis, leftmediolateral oblique with tomosynthesis, left mediolateral spotcompression magnification, and left craniocaudal exaggerated laterally toaxilla with tomosynthesis. MAMMOGRAM FINDINGS: The breast is heterogeneously dense, which may obscure small masses. (ACRBIRADS density Category c) * Follow-up examination was performed for the calcifications in the leftbreast, upper outer quadrant seen on 09/30/2018. On the presentexamination, there are stable milk of calcium and amorphous calcificationswith grouped distribution in the middle third upper outer quadrant of theleft breast. IMPRESSION: Stable calcifications in the left breast are probably benign. A shortinterval follow-up mammogram of the left breast in 6 months isrecommended. The patient was informed of these findings at the time of the exam. The patient will receive a lay summary of the results of this breastimaging exam. Lay summaries for mammography examinations will alsoidentify the patient's personal breast tissue composition as required [facility] law. BIRADS Category 3: Probably Benign Finding(s) Thank you for referring your patient to us, Marii Eisenberg MD [phone] (Electronically Signed - 04/13/2019 16:30) Copy: KENTRELL BERNARDO MD [facility] 8-D CANAL [place] [address] Amara Toscano APRN IMG LEGACY PROCEDURES Fi nal Result from Last 3 Months or Most Recently Relevant to Health Maintenance Insurance [employer] Care Teams New Media Strategist Relationship Specialty Start Date End Date Pcp, No PCP - General General Medicine 07/26/18
--- OUTSIDE RECORDS SUMMARY | 2024-10-02 09:06 | XMS_ITS | Encounter Summary ---
Author Organization [employer] Address [address] [facility] 7 [place] [address] Care Team Providers Care Emergency Worker Name Role Phone Susy Edmondson MD Primary Care Provider + Reason for Visit * Reason Comments Med Refill Encounter Details Date Type Department Care Team ([facility] st Contact Info) Description 08/23/2023 Refill [facility] MED & PEDS [address] [place], [place] [phone] Rafa Mondragon MD [address] [place] [address] Social History Tobacco Use Types Packs/Day Years [...] Description 10/09/2024 4:00 PM EDT Office Visit [facility] MEDICINE [address] [place] [address] Susy Edmondson MD [address] [place] [phone] documented as of this encounter Visit Diagnoses Not on filedocumented in this encounter Care Teams Emergency Worker Relationship Specialty Start Date End Date Susy Edmondson MD [address] [place] [phone] PCP - General Family Medicine 08/21/20 documented as of this encounter
== END 2024-10-02 08:58 | disposition home or self-care (01) ==
LOC: HO.HGI 08:33
PROVIDERS: PCP Internal Medicine; Visit Provider Nurse Practitioner Family
DX: K21.00 Gastro-esophageal reflux disease with esophagitis, without bleeding (principal); K59.04 Chronic idiopathic constipation
CPT/HCPCS: 99214

== ENCOUNTER → 2024-10-02 08:33 | Outpatient (BNVA) | payer OTHER, SELFPAY | PROVIDERS: PCP Internal Medicine; Visit Provider Nurse Practitioner Family ==

== ENCOUNTER 2024-10-26 09:09 | Outpatient (REF) | payer OTHER, SELFPAY ==
--- NOTE | ~2024-10-26 | FL_ITS ---
EXAMINATION: XR FLUOROSCOPY UPPER GI SERIES CLINICAL INFORMATION: Hiatus hernia, abdominal pain, GERD. COMPARISON: None TECHNIQUE: Fluoroscopic air contrast upper GI examination was performed utilizing standard techniques with thin and thick barium and effervescent granules. Numerous spot images were obtained. Several fluoroscopic image hold cine sequences were also obtained. FINDINGS: UPPER GI SERIES: Lateral cine images of the oropharynx and hypopharynx demonstrate normal swallow mechanism with normal epiglottic inversion and soft palate elevation. No laryngeal penetration, glottic or subglottic aspiration identified. No nasopharyngeal reflux present. Hypopharyngeal structures appear normal without evidence of mass or diverticulum. There was mild cricopharyngeal achalasia. Dual and single contrast images of the esophagus demonstrate normal caliber, contour, and mucosal pattern. No evidence of stricture, mass, or ulcerations identified. Esophageal peristalsis is mildly disordered. Small hiatus hernia, type I. The GE junction is patulous. Episodic gastroesophageal reflux identified to the level of the aortic arch. Dual contrast and single contrast images of the stomach demonstrated normal contour and rugal fold pattern. Normal mucosal pattern without evidence of mass, ulceration, or other abnormality. Contrast freely passed into the gastric antrum and duodenal bulb without delay. Single and air-contrast images of the duodenal bulb demonstrate no abnormality. The duodenal sweep has a normal appearance, course, and mucosal fold appearance. FLUOROSCOPY TIME: 2 minutes, 34 seconds Number of Spot Images:8 Number of cines obtained: 10 DOSE AREA PRODUCT: 3320 mGy-m2 FL/FL barium swallow with air IMPRESSION: 1. Mild cricopharyngeal achalasia. 2. Mildly disordered esophageal peristalsis. 3. Small type I hiatus hernia at the GE junction. Patulous GE junction. 4. Episodic gastroesophageal reflux to the level of the aortic arch. 5. Normal-appearing stomach, duodenal bulb, duodenum, and proximal small bowel. Electronically signed by: Ceasar Arias MD 10/26/2024 10:12 AM EDT
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
--- OUTSIDE RECORDS SUMMARY | 2024-10-26 09:23 | XMS_ITS | Encounter Summary ---
Author Organization [employer] Address [address] [place] [address] 7 [place] [address] Care Team Providers Care Structurer Name Role Phone Susy Edmondson MD Primary Care Provider + Reason for Visit * Reason Comments Med Refill Encounter Details Date Type Department Care Team (Late st Contact Info) Description 05/17/2023 Refill [facility] MEDICINE [address] [place], [place] [phone] Susy Edmondson MD [address] [place], [place] [phone] Social History Tobacco Use Types Packs/Day Years [...] as of this encounter Plan of Treatment Not on file documented as of this encounter Visit Diagnoses Not on filedocumented in this encounter Care Teams Structurer Relationship Specialty Start Date End Date Susy Edmondson MD [address] [place], [place] [phone] PCP - General Family Medicine 08/21/20 documented as of this encounter
--- OUTSIDE RECORDS SUMMARY | 2024-10-26 09:23 | XMS_ITS | Encounter Summary ---
Author Organization [employer] Address [address] [facility] 7 [place] [address] Care Team Providers Care Icu Specialist Name Role Phone Susy Edmondson MD Primary Care Provider + Reason for Visit * Reason Onset Date Comments Appointment Request 08/25/2023 Encounter Details Date Type Department Care Team ([facility] st Contact Info) Description 08/25/2023 Telephone [facility] MEDICINE [address] [place], [place] [phone] Susy Edmondson MD [address] [place], [place] [phone] Appointment Request Social History Tobacco Use Types [...] on filedocumented in this encounter Care Teams Icu Specialist Relationship Specialty Start Date End Date Susy Edmondson MD [address] [place] [phone] PCP - General Family Medicine 08/21/20 documented as of this encounter
--- OUTSIDE RECORDS SUMMARY | 2024-10-26 09:23 | XMS_ITS | Encounter Summary ---
Author Organization [facility] Address [address] [place] [address] Care Team Providers Care Information Broker Name Role Phone Pcp, No Primary Care Provider Unavailabl e Encounter Details Date Type Department Care Team ([facility] st Contact Info) Description 07/29/2018 Telephone [facility] [place] [address] [place] [phone] [address] [place] [address] Social History Tobacco Use Types Packs/Day Years [...] Miscellaneous Notes * Telephone Encounter - RT eJsus - 07/29/2018 9:08 AM EST Spoke with patient/mph documented in this encounter Plan of Treatment Not on file documented as of this encounter Visit Diagnoses Not on filedocumented in this encounter Care Teams Information Broker Relationship Specialty Start Date End Date Pcp, No PCP - General General Medicine 07/26/18 documented as of this encounter
--- OUTSIDE RECORDS SUMMARY | 2024-10-26 09:23 | XMS_ITS | Clinical Summary ---
Author Organization [facility] Address [address] [place] [address] Care Team Providers Care Pony Cylinder Press Operator Name Role Phone Unavailable Primary Care Provider [...]
--- OUTSIDE RECORDS SUMMARY | 2024-10-26 09:23 | XMS_ITS | Encounter Summary ---
Author Organization [employer] Address [address] [facility] 7 [place] [address] Care Team Providers Care Traffic Assistant Name Role Phone Susy Edmondson MD Primary Care Provider + Reason for Visit * Reason Comments Med Refill Encounter Details Date Type Department Care Team ([facility] st Contact Info) Description 09/10/2023 Refill [facility] [address] [place], [place] [phone] Lyudmila Puri FNP [address] [place] [address] Social History Tobacco Use Types Packs/Day Years [...] documented as of this encounter Care Teams Traffic Assistant Relationship Specialty Start Date End Date Susy Edmondson MD [address] [place] [address] PCP - General Family Medicine 08/21/20 documented as of this encounter
--- OUTSIDE RECORDS SUMMARY | 2024-10-26 09:23 | XMS_ITS | Clinical Summary ---
Author Organization [facility] Address [address] [place] [address] Care Team Providers Care Rehabilitator Name Role Phone Unavailable Primary Care Provider [...] RESULTING AGENCY - 11/26/2023 6:26 AM EDT [id number] THINPREP PAP, IMAGED: NEGATIVE FOR SQUAMOUS INTRAEPITHELIAL [...]
--- OUTSIDE RECORDS SUMMARY | 2024-10-26 09:23 | XMS_ITS | Encounter Summary ---
Author Organization [employer] Address [address] [place] [address] [place] [address] Care Team Providers Care Basket Sorter Name Role Phone Susy Edmondson MD Primary Care Provider + Reason for Visit * Reason Comments Med Refill Encounter Details Date Type Department Care Team ([facility] st Contact Info) Description 08/23/2023 Refill [facility] CHC MED & PEDS [address] [place], [place] [phone] Rafa Mondragon MD [address] [place] [address] Social History Tobacco Use Types Packs/Day Years Used Date Smoking Tobacco: Never Smokeless Tobacco: Never Alcohol Use Standard Drinks/Week Comments Defer 0 (1 standard drink = 0.6 oz pur e alcohol) Housing Stability Answer Date Recorded What is your housing situation today? I have aparna sally 08/26/[address] you li [...] on filedocumented in this encounter Care Teams Basket Sorter Relationship Specialty Start Date End Date Susy Edmondson MD [address] [place] [address] PCP - General Family Medicine 08/21/20 documented as of this encounter
--- OUTSIDE RECORDS SUMMARY | 2024-10-26 09:23 | XMS_ITS | Clinical Summary ---
Author Organization [facility] Address [address] [place] [address] Care Team Providers Care Filament Shaper Name Role Phone Pcp, No Primary Care [...] 1998 Mammogram 04/13/2021 04/13/2019, 09/17/2018 Colonoscopy 2022 COVID-19 Vaccine (1 - 2023-2 5 season) 2024 Influenza Vaccine 01/05/2025 Pneumococcal Vaccine: Pediatric (0-5 Years) and At-Risk [...] your patient to us, Marii Eisenberg MD [id number] (Electronically Signed - 04/13/2019 16:30) Copy: KENTRELL BERNARDO MD [facility] 8-D CANAL [place] [address] Procedure Note Marii Eisenberg MD [...] patient's personal breast tissue composition as required [facility] law. BIRADS Category 3: Probably Benign Finding(s) Thank you for referring your patient to us, Marii Eisenberg MD [phone] (Electronically Signed - 04/13/2019 16:30) Copy: KENTRELL BERNARDO MD [facility] 8-D [place] [address] Amara Toscano APRN IMG LEGACY PROCEDURES Fi nal Result from Last 3 Months or Most Recently Relevant to Health Maintenance Insurance [employer] Care Teams Filament Shaper Relationship Specialty Start Date End Date Pcp, No PCP - General General Medicine 07/26/18
--- OUTSIDE RECORDS SUMMARY | 2024-10-26 09:23 | XMS_ITS | Encounter Summary ---
Author Organization [employer] Address [address] [place] [address] 7 [place] [address] Care Team Providers Care Legal Billing Coordinator Name Role Phone Susy Edmondson MD Primary Care Provider + Reason for Visit * Reason Onset Date Comments Nurse Triage 05/23/2024 Encounter Details Date Type Department Care Team ([facility] st Contact Info) Description 05/23/2024 Telephone [facility] MEDICINE [address] [place], [place] [phone] Susy Edmondson MD [address] [place], [place] [phone] Nurse Triage Social History Tobacco Use Types [...] questions regarding medications. Pt was seen in [facility] 05/03/24 for asthma. Orderswere given for [...] provider. Pt is advised can come to [facility] if needed. Pt reports will wait [...] documented as of this encounter Care Teams Legal Billing Coordinator Relationship Specialty Start Date End Date Susy Edmondson MD [address] [place] [phone] PCP - General Family Medicine 08/21/20 documented as of this encounter
--- OUTSIDE RECORDS SUMMARY | 2024-10-26 09:23 | XMS_ITS ---
Author Name [facility] Organization Unknown Encounters Encounter Type Encounter Reason Primary Diagnosis Location Date Ambulatory [facility] 07/09 Care Team Organization Name Specialty Phone Email Start Date End Da te [facility] Primary Care 08/02/2021 01/24/2024
--- OUTSIDE RECORDS SUMMARY | 2024-10-26 09:23 | XMS_ITS | Encounter Summary ---
Author Organization [employer] Address [address] [place] [address] 7 [place] [address] Care Team Providers Care Life Insurance Underwriter Name Role Phone Susy Edmondson MD Primary Care Provider + Reason for Visit * Reason Onset Date Comments Letter for School/Work 07/08/2023 Encounter Details Date Type Department Care Team ([facility] st Contact Info) Description 07/08/2023 Telephone [facility] MED[facility] [address] [place], [place] [phone] Susy Edmondson MD [address] [place] [address] Letter for School/Work Social History Tobacco Use [...] EST Letter generated and sent to scan. [facility] to pt informing that note is available through [employer] and if pt would like copy mailed to us to return call to office to inform. * Telephone Encounter - Aryan Arturo - 07/08/2023 3:28 PM EST Tc from pt had televisit with Dr. Drew 07/07/23 requesting letter to excuse her from work due to covid. If any questions please contact pt at [phone] documented in this encounter Plan of Treatment Not on file documented as of this encounter Visit Diagnoses Not on filedocumented in this encounter Care Teams Life Insurance Underwriter Relationship Specialty Start Date End Date Susy Edmondson MD [address] [place] [phone] PCP - General Family Medicine 08/21/20 documented as of this encounter
--- OUTSIDE RECORDS SUMMARY | 2024-10-26 09:23 | XMS_ITS | Clinical Summary ---
Author Organization [employer] Address [address] [place] [address] 7 [place] [address] Care Team Providers Care Psychologist Clinical Name Role Phone Susy Edmondson MD Primary [...] by mouth in the morning. 30 tablet 07/27/19 24 Active EPINEPHrine (AUVI-Q) 0.15 mg/0.15 mL IJ solution auto-injector injection Inject 0.15 mL (0.15 mg) into the shoulder, thigh, or buttocks if needed for anaphylaxis. 2 each 07/27/19 24 Active omeprazole (PriLOSEC) [address] capsuleIndicat ions:Gastroeso phageal reflux disease without esophagitis Take 1 capsule (20 mg) by mouth every 12 (twelve) hours. 60 capsule 11 07/27/19 24 Active ergocalciferol (Vitamin D2) 1.25 MG (98689 UT) capsuleIndicat ions:Vitamin D deficiency TAKE 1 CAPSULE BY MOUTH ONCE WEEKLY 12 capsule 1 10/20/19 24 Active Respiratory Therapy Supplies (Nebulizer Mask Adult) miscIndication s:Exacerbation of asthma, unspecified asthma severity, unspecified whether persistent 1 each Once per day. 1 each 05/03/20 24 Active cyclobenzaprin e (Flexeril) 10 MG tabletIndicati ons:Chronic right-sided low back pain without sciatica TAKE 1 TABLET BY MOUTH AT BEDTIME 30 tablet 3 05/08/20 24 Active fluticasone (Flovent) 110 MCG/ACT inhaler Inhale 1 puff in the morning and at bedtime. Rinse mouth with water after use to reduce aftertaste and incidence of candidiasis. Do not swallow. 12 g 11 05/26/20 24 025 Active topiramate (Topamax) 25 MG tablet Take 1 tablet (25 mg) by mouth every 12 (twelve) hours. 60 tablet 11 05/26/20 24 025 Active sucralfate (Carafate) 1 g tablet Take 1 g by mouth at bedtime. 05/01/20 24 Active albuterol (2.5 MG/3ML) 0.083% nebulizer solution Take 3 mL by nebulization every 4 (four) hours if needed for wheezing. 75 mL 06/20/19 25 026 Active albuterol 108 (90 Base) MCG/ACT inhaler Inhale 2 puffs every 4 (four) hours if needed for wheezing. 18 g 3 06/20/19 25 026 Active Spacer/Aero-Ho lding Chambers (AeroChamber MV) inhaler Use as instructed 1 each 2 06/20/19 25 026 Active sodium chloride ([place] Nasal Schofield) 0.65 % nasal spray Administer 1 spray into each nostril if needed for congestion. 30 mL 06/20/19 25 026 Active fluticasone (Flonase) 50 MCG/ACT nasal spray Administer 1 spray into each nostril Once per day. 16 g 2 06/20/19 25 Active Diclofenac Sodium 1 % gel APPLY 2 GRAMS TO AFFECTED AREA(S) ONCE DAILY OR TWICE DAILY NEEDED 100 g 1 10/03/19 25 Active Diclofenac Sodium 1 % gel APPLY TO THE AFFECTED AREA(S) 2 GRAMS ONE OR TWO TIMES DAILY NEEDED 100 g 1 03/21/20 24 025 Discontinued Active Problems Problem Noted Date Diagnosed Date [...] obtain Mammogram: UTD? Will obtain results form [facility] Eye exam: UTD, she will fu next [...] 12/16/2022 Overview (12/16/2022): Sp EGD 11/2022 at [facility] Chronic superficial gastritis without bleeding 0 12/16/2022 Overview (12/16/2022): SP EGD at [facility] on 11/2022 Pre-diabetes 05/25/2022 Assessment & Plan [...] track of menstrual cycles - f/u with GASTROENTEROLOGY MANAGER at [facility] during next pap smear Assessment & Plan [...] exercise, life style modifications, diet, referral to traffic control specialist. - Discussed re lower calorie intake, [...] Encounters Date Type Department Care Team Description 10/05/2024 Telephone [facility] [address] [place] [phone] Susy Edmondson MD chart prep 10/03/2024 Patient Outreach [facility] [address] [place] [address] Susy Edmondson MD Pre-visit Planning (SDOH screening is negative) 10/01/2024 Refill [facility] [address] [place] [address] Susy Edmondson MD 09/21/2024 Abstract [facility] [address] [place], [place] [phone] Susy Edmondson MD 09/12/2024 Orders Only GENERIC EXTERNAL DATA DEPARTMENT Provider, Generic External Data from Last 3 Months Immunizations Immunization Administration Dates Next Due Hep B, adult [...] housing situation today? I have aparna zavala 10/03/[address] you li ve. Do you have problems with any of the following? None of the above 10/03/2024 Food Insecurity Answer Date Recorded Within the past 12 months, y ou worried that your food would run out before you got money to buy more: Never True 10/03/2024 Within the past 12 months,th e food you bought just didn't last and you didn't have enough money to get more: Never True Transportation Answer Date Recorded In the past 12 months, has l ack of transportation kept you from medical appts, meetings, work or from getting things needed for daily living? No 10/03/2024 Utilities Answer Date Recorded In the past 12 months, has t he electric, gas, oil or water company threatened to shut off services in your home? No 10/03/2024 Depression Answer Date Recorded Patient Health Questionnaire-2 Score 0 09/06/2023 Internet Access Answer Date Recorded Internet Access Q1 Yes 10/03/2024 Internet Access Q2 Not on file 10/03/2024 Comments No Sex and Gender Information Value [...] 06/20/2024 2:17 PM EST Plan of Treatment Health Maintenance Due Date Last Done Comments CT Colonography 1977 FIT DNA/Cologuard 1977 FIT 1977 FOBT 1975 Sigmoidoscopy 1975 Disability Screening 1977 Alcohol/Substance Use Screening 1989 Family Planning (PISQ) 1992 Pneumococcal Vaccine: Pediatrics (0 to 5 Years) and At-Risk Patients (6 to 49) Years) (1 of 2 - PCV) 1996 Mammogram 10/23/2022 10/23/2020, 12/2018, 04/13/2019, Additional history exists COVID-19 Vaccine ( - season) 2024 07/15/2021, 10/15/2020, 09/17/2020 Influenza Vaccine (#1) 2024 4, 03/24/2010, 04/03/2006, Additional history exists Depression Screening 09/05/2024 09/06/2023, 09/06/19 Tobacco Screening 06/20/2025 06/20/2024 Cervical Cancer Screening 09/03/2025 HPV/Cotest 09/03/2025 09/03/2020 Pap Smear 09/03/2025 09/03/2020 SDOH Screening 10/03/2025 10/03/2024 Zoster Vaccines (1 of 2) 11/19/2027 Lipid Panel 10/12/2028 10/13/2023, 08/08/2020 DTaP/Tdap/Td Vaccines (4 - Td or Tdap) 05/26/2034 05/26/2024, 11/02/2013, 06/07/1999 Colonoscopy 09/12/2034 09/12/2024 Colorectal Cancer Screening 09/12/2034 RSV Patients and Patients Aged 60 years or older (1 - 1-dose 75+ series) 2052 Hepatitis B Vaccines Completed 04/25/2014, 11/30/2013, 11/02/2013 HIV Screening Completed 10/13/2023, 09/04/2020 Hepatitis C Screening Completed 10/13/2023, 021 HIB Vaccines Aged Out No longer [...] 1:23 PM EDT 09/12/2024 1:47 PM EDT [facility] - 09/14/2024 7:43 PM EDT ----- ------- Name: Rajni Marshall ? Age/Sex: 48/F ? : 1975 Unit#: [id number] ?? Attend Dr: Francine Knowles MD ?Re09/12/24 ?Status: DEP SDC ? Location: HO.SSS ?Disch: ? ----- ------- SPEC : [id number] ? RECD: 09/12/24-1346 ? STATUS: ??SOUT ? REQ NUM: [id number] ? AZRA: 09/12/24-1322 ? SUBM DR: Francine Knowles MD ? ENTERED: ??09/12/24-4134 ?SP TYPE: Surgical ? OTHR DR: Susy [...] ? Age/Sex: 48/F ? : 1975 Unit#: [id number] ?? Attend Dr: Francine Knowles MD ?Re09/12/24 ?Status: DEP SDC ? Location: HO.SSS ?Disch: ? ----- ------- SPEC : [id number] ? RECD: 09/12/24-2 ? STATUS: ??SOUT ? REQ NUM: [id number] ? AZRA: 09/12/24-7 ? SUBM DR: Francine Knowles MD ? ENTERED: ??09/12/24-2148 ?SP TYPE: Surgical ? OTHR DR: Susy Edmondson MD ? ORDERED: ??HE Stain/9, Gross Micro L4/2, IHC, H. pylori/2 ? Copies To: ?? Susy Edmondson MD ?? [facility] ?? [address] ?? [place] [address] ?? [phone] ?? Francine Knowles MD ?? [facility] ?? [address] ?? [place] ?? [phone] ?? [email or web address] ------- Signed (signature on file) Letty [place] 09/14/241942 ? ----- ------- ? END OF REPORT ? us Generic External Data Provider LAB BLOOD ORDERAB LES Final Result [facility] [address] [place] [address] [phone] * Colonoscopy (09/12/2024) Colonoscopy Normal Normal Comment:benign polyp us Susy Edmondson MD HEALTH MAINTENANCE Final Result * (ABNORMAL) Lipid Panel with Reflex to Direct LDL (10/13/2023 9:29 AM EDT) Triglycerides 235(H) <150 mg/dL [facility] Comment:Desirable Triglyceri de: less than 150 mg/dLBorderline High Triglyceride 150-199 mg/dLHigh Triglyceride: 200-499 mg/dLVery High Triglyceride: greater than or equal to 5OO mg/dL Cholesterol 242(H) <200 mg/dL [facility] Comment:Desirable Cholestero l: less than 200 mg/dLBorderline High Cholesterol: 200-239 mg/dLHigh Cholesterol: greater than 239 mg/dL LDL Cholesterol Calculated 151(H) <100 mg/dL [facility] Comment:Desirable LDL: less than 100 mg/dLNear Optimal/Above Optimal LDL: 110- 129 mg/dLBorderline High LDL: 130-159 mg/dLHigh LDL: 160-189 mg/dLVery High LDL: greater than or equal to 190 mg/dL HDL Cholesterol 44 >40 mg/dL [facility] Comment:Desirable HDL: great er than 40 mg/dL Note: This HDL assay may give artificially low results in patients with liver disease. Blood 10/13/2023 9:29 AM EDT 10/13/2023 11:25 AM EDT us Susy Edmondson MD LAB BLOOD ORDERABLES Fin al Result [facility] [address] [place] [phone] * Hepatitis Panel, General (10/13/2023 9:29 AM EDT) Hepatitis A IgM Nonreactive Nonreactive [facility] Comment:IgM antibodies to TELLO V not detected; does not exclude earlyacute or recovered HAV infection. ~Hepatitis B Surface Antibody NONREACTIVE Nonreactive [facility] Comment:Nonreactive: < 8.00 mIU/mL Hepatitis B Core Antibody Nonreactive Nonreactive [facility] Hepatitis C Antibody Nonreactive Nonreactive [facility] Comment:Antibodies to HCV no t detected; does not exclude early acuteHCV infection. Hepatitis B Surface Ag Negative Negative [facility] Blood 10/13/2023 9:29 AM EDT 10/13/2023 11:25 AM EDT us Susy Edmondson MD LAB BLOOD ORDERABLES Fin al Result [facility] [address] [place] [address] [phone] * HIV-1/2 Antigen and Antibodies, Fourth Generation, with Reflexes (10/13/2023 9:29 AM EDT) HIV AB/AG Nonreactive Nonreactive [facility] Comment:HIV-1 p24 Ag and/or HIV-1/HIV-2 Ab not detected.A test result that is nonreactive does not exclude thepossibility of exposure to or infection with HIV-1 and/orHIV-2. Nonreactive results in this assay for individualswith prior exposure to HIV-1 and/or HIV-2 may be due toantigen and antibody levels that are below the limit ofdetection of this assay.The DGTS HIV Ag/Ab Combo assay result andsupplemental assay results should be interpreted inconjunction with the patient's clinical presentation,history and other laboratory results. If the results areinconsistent with clinical evidence, additional testing issuggested to confirm the result. Blood Venous blood specimen / Unknown 10/13/2023 9:29 AM EDT 10/13/2023 11:25 AM EDT us Susy Edmondson MD LAB BLOOD ORDERABLES Fin al Result Performing Organization Address [facility]/ZIP Co de Phone Number [facility] [address] [place] [address] [phone] * Mammography Report 1 (10/23/2020 10:00 AM EDT) Anatomical Region Laterality Modality Breast Bilateral Mammography 10/23/2020 10:0 0 AM EDT Narrative 10/23/2020 2:26 PM EDT Refer to the Notes tab for result details [facility] Procedure: Mammography Report 1 Procedure Note ProviderHal MD - 08/29/2022 Refer to the Notes tab for result details [facility] Procedure: Mammography Report 1 us Susy Edmondson MD IMG BI PROCEDURES Final [...] historic and ?? current clinical information. ?? Addressograph Operator : SEE COMMENT [facility] Comment: YP, CT(ASCP) CT screening location: [address] ??[phone] Interpretation/R esult: Negative for intraepithelial lesion or malignancy. [facility] LMP: NONE [facility] Prev. BX: NONE [facility] Prev. PAP: NONE [facility] Review Addressograph Operator : SEE COMMENT [facility] Comment: DCR, CT(ASCP) CT screening location: [address] ??[phone] SOURCE: None given [facility] Statement Of Adequacy: SEE COMMENT [facility] Comment: Satisfactory for evaluation. Endocervical/transformation zone component present. Age and/or menstrual status not provided 09/03/2020 3:37 PM EDT Lily Kuo CNM LAB PATHOLOGY ORDERABLES Final Result [facility] [address] * HPV mRNA E6/E7 (09/03/2020 3:37 PM EDT) HPV nRNA E6/E7 Not Detected Not Detected [facility] Comment: Methodology: Stretcher Leveler Operator Helper-Mediated Amplification This assay detects E6/E7 viral messenger RNA (mRNA) from 14 high-risk HPV types (16,18,31,33,35,39,45,51,52,56,58,59,66,68). ? The analytical performance characteristics of this assay have been determined by [employer]. The modifications have not been cleared or approved by the FDA. This assay has been validated pursuant to the CLIA regulations and is used for clinical purposes. ?? For additional information, please refer to http://education.[employer]/faq/BZX048a7 (This link if provided for information/ educational purposes only.) 09/03/2020 3:37 PM EDT us Lily Kuo [facility] LAB BLOOD ORDERABLES Brittani l Result [facility] [address] from Last 3 Months or Most Recently Relevant to Health Maintenance Insurance [facility] A Care Teams Psychologist Clinical Relationship Specialty Start Date End Date Susy Edmondson MD [address] [place] [phone] PCP - General Family Medicine 08/21/20
--- OUTSIDE RECORDS SUMMARY | 2024-10-26 09:23 | XMS_ITS | Clinical Summary ---
Author Organization [facility] Address [address] [place] [address] Care Team Providers Care Surgical Lead Name Role Phone Sylvia Del Cid Primary Care Provider Unavailable Allergies Active Allergy Reactions Criticality Noted Date Comments Aspirin 12/12/2009 Ciprofloxacin Hcl 01/01/2012 Reactions: Dizziness , [employer] Comment: [id number]: Red cheeks,pale complexion. S.B. Latex 10/16/2009 Metronidazole [...] Hearing loss 12/28/2019 Overview (07/11/2023): Impression - [id number]: I ordered audiometry test and evaluation. Nausea 12/22/2019 Overview (07/11/2023): Impression - [id number]: Nausea with headache could be recurrent of migraine symptoms. Will treat symptomatically. Unlikely but not impossible presentation for spann virus Adjustment reaction with brief depressive reacti on 08/08/2019 Overview (07/11/2023): Impression - [id number]: I believe secondary to her loss in the family and starting a new job that same time. I gave the patient a letter so should stay home for this week and she will start taking fluoxetine, low dose, 10 milligrams daily and I will follow her up within 1 month. Offered support. Advised to start psychotherapy as well. Impression - [id number]: Seems resolved. Will monitor. The patient will let me know if she starts developing any symptoms again. Back pain, chronic 04/13/2019 Overview (07/11/2023): Impression - 50Jhb6574: Unclear etiology; likely muscle skeletal in nature. [...] alcohol. She seems to understand. Impression - [id number]: I advised the patient to use the [...] Abdominal pain 01/07/2012 Overview (07/11/2023): Impression - [id number]: Patient is known to have GERD and it is likely secondary to that versus dyspepsia. I refer the patient back to GI specialist and she might need an endoscopy. Continue with omeprazole for now. Will monitor the symptoms. Advised to call or come back if not improving/worsening. Myalgia and myositis 02/20/2010 Aspirin Toxicity 10/16/2009 Esophageal reflux 10/16/2009 Asthma 10/16/2009 Overview (07/11/2023): Impression - 38Oxp1309: I believe that the patient is a high risk for mortality if developing spann virus. 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 I believe that it will decrease her exposure and also help with the anxiety. Impression - [id number]: I believe that the patient is a high risk for mortality if developing spann virus. 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 Encounter for preventive health examination 06/08 [...] Recently Relevant to Health Maintenance Care Teams Surgical Lead Relationship Specialty Start Date End Date Sylvia Del Cid PCP - General 01/11/23
--- OUTSIDE RECORDS SUMMARY | 2024-10-26 09:23 | XMS_ITS | Encounter Summary ---
Author Organization [employer] Address [address] [place] [address] [address] [place] [address] Care Team Providers Care Blood Bank Credit Clerk Name Role Phone Susy Edmondson MD Primary Care Provider + Encounter Details Date Type Department Care Team ([facility] st Contact Info) Description 12/16/2022 Orders Only [facility] [address] [place], [place] [phone] Susy Edmondson MD [address] [place], [place] [phone] Gastric polyp (Primary Dx); Chronic superficial gastritis [...] bleeding documented in this encounter Care Teams Blood Bank Credit Clerk Relationship Specialty Start Date End Date Susy Edmondson MD [address] [place], [place] [phone] PCP - General Family Medicine 08/21/20 documented as of this encounter
--- OUTSIDE RECORDS SUMMARY | 2024-10-26 09:23 | XMS_ITS | Clinical Summary ---
Author Organization [facility] Address [address] [place] [address] Care Team Providers Care Transmission And Coordination Engineer Name Role Phone Unavailable Primary Care Provider [...]
== END 2024-10-26 09:10 | disposition home or self-care (01) ==
LOC: HO.XRAY 09:09
PROVIDERS: PCP Internal Medicine; Visit Provider Nurse Practitioner Family
DX: K44.9 Diaphragmatic hernia without obstruction or gangrene (principal)
CPT/HCPCS: 74221

== ENCOUNTER → 2024-10-26 09:30 | Outpatient (BNV) | payer OTHER, SELFPAY | PROVIDERS: PCP Internal Medicine; Visit Provider Radiology Diagnostic Radiology | DX: K44.9 Diaphragmatic hernia without obstruction or gangrene (principal); K21.9 Gastro-esophageal reflux disease without esophagitis | CPT/HCPCS: 74221 ==

== ENCOUNTER 2024-11-06 11:41 | Outpatient (REF) | payer OTHER, SELFPAY ==
--- OUTSIDE RECORDS SUMMARY | 2024-11-07 13:14 | XMS_ITS | Encounter Summary ---
Author Organization [employer] Address [address] [place] [address] [address] [place] [address] Care Team Providers Care Wood Polisher Name Role Phone Susy Edmondson MD Primary Care Provider + Reason for Visit * Reason Comments Med Refill Encounter Details Date Type Department Care Team (Late st Contact Info) Description 05/17/2023 Refill [facility] [address] [place], [place] [phone] Susy Edmondson MD [address] [place], [place] [phone] Social History Tobacco Use Types Packs/Day Years [...] on filedocumented in this encounter Care Teams Wood Polisher Relationship Specialty Start Date End Date Susy Edmondson MD [address] [place], [place] [phone] PCP - General Family Medicine 08/21/20 documented as of this encounter
== END 2024-11-06 11:42 | disposition home or self-care (01) ==
LOC: HO.HHCLNP 11:41
PROVIDERS: Visit Provider Internal Medicine
DX: N30.90 Cystitis, unspecified without hematuria (principal)
CPT/HCPCS: 87086

== ENCOUNTER 2025-01-05 09:01 | Outpatient (AMB) | payer OTHER, SELFPAY ==
--- NOTE | 2025-01-05 09:11 | MHC.OFFVIS ---
Vital Signs 01/05/25 09:18 Height 4 ft 11 in Weight 192 lb BMI 38.8 BP 116/74 Blood Pressure Location Rt brachial Position Sitting Pulse 86 Pulse Source Pulse Oximeter Pulse Oximetry (%) 98 Oxygen Delivery Method Room Air Intake Visit Reasons: GERD w/ epigastric pain. R/S x1 per pt. Intake Note: Est pt for mgmt of GERD w/ abd pain. CC: C.O. difficulty with obtaining medication from pharmacy due to change in insurance preferences. Building Estimator Required: No Accompanied by: Family/Other Allergies morphine Allergy (Unknown, Verified 10/02/24 08:37) Unknown ciprofloxacin (From Cipro) Allergy (Verified 10/02/24 08:37) Difficulty Breathing IV dye Allergy (Severe, Uncoded 10/02/24 08:37) Hives HPI HPI GERD w/ epigastric pain. R/S x1 per pt.: Details: LAST VISIT [place] grade C esophagitis Upper abdominal pain Chronic idiopathic constipation GERD (gastroesophageal reflux disease) Postprandial epigastric pain Left upper quadrant pain Plan Patient will continue taking Nexium twice a day and start taking again sucralfate at bedtime. Patient will restart taking vitamin D as ordered. Discussed with patient avoiding dietary triggers and let the stocking. Staying upright for minimal 3 hours after meals discussed with patient. Patient has barium swallow next week. He will need to repeat upper endoscopy in few months. Colonoscopy in 7-10 years. Patient will return to the office in 3 months, sooner on as needed basis. She is agreeable to this plan and verbalizes understanding of instructions. She was given the opportunity to ask questions and all questions answered. ? Thank you for allowing me to participate in her care New ergocalciferol (vitamin D2) 1,250 mcg PO QWEEK 30 caps 0RF Refilled sucralfate 1 g PO BEDTIME 30 tabs 4RF R19.7 esomeprazole magnesium 20 mg PO BID 90 days 180 caps 0RF K20.80 TODAY'S VISIT Patient is here today for follow-up. Patient reports that she has been feeling better since she started taking next him. Currently patient is taking Nexium daily. Was taking it twice after her endoscopy. Patient is going for repeat endoscopy in February. Patient denies dyspepsia, dysphagia or odynophagia. Denies melena, hematochezia, unintentional weight loss or ribbon like stools. Patient reports that she is feeling well. Uses Senokot as needed. [facility] Medical History Hx of ulcer disease GERD (gastroesophageal reflux disease) Asthma Upper abdominal pain Surgical History History of surgery on arm History of esophagogastroduodenoscopy (EGD) History of appendectomy History of tubal ligation History of umbilical hernia repair Family History Maternal Grandmother Breast cancer Father Diabetes HTN (hypertension) Schizophrenia Stroke Paternal Grandfather Stroke Diabetes HTN (hypertension) Mother Diabetes HTN (hypertension) Heart problem Other History of esophageal cancer History of kidney cancer Stomach cancer Throat cancer Uterine cancer Social History Alcohol intake: never Patient Tobacco Use Status: Never used Tobacco Review of Systems Const Denies weight gain and Denies weight loss ENT Reports no additional complaints, Denies dysphagia and Denies odynophagia Card Reports no additional complaints Resp Reports no additional complaints GI Denies abdominal pain, Denies belching, Denies melena, Denies bloating, Denies change in bowel habits, Denies dysphagia, Denies excessive flatus, Denies dyspepsia, Denies heartburn, Denies diarrhea, Denies loose stools, Denies nausea, Denies odynophagia and Denies vomiting Reports no additional complaints Musc Reports no additional complaints Neuro Reports no additional complaints Psych Reports no additional complaints Endo Reports no additional complaints Physical Exam Vital Signs: Last Vital Signs Pulse 86 01/05/25 09:18 BP 116/74 01/05/25 09:18 Pulse Ox 98 01/05/25 09:18 Oxygen Delivery Method Room Air 01/05/25 09:18 BMI result Body Mass Index 38.8 Const General: healthy appearing, no acute distress and well developed Nutritional Appearance: obese Orientation/consciousness: patient oriented x3 Resp Effort & Inspection: normal respiratory effort, able to speak in complete sentences, no tracheal deviation and symmetric chest movement Auscultation: clear to auscultation bilaterally Cardio Rate: regular rate GI Inspection: Yes normal to inspection, No distended and Yes obesity Palpation (GI): Soft to palpation, not firm, nontender and No hepatosplenomegaly present Auscultation: normal bowel sounds General: Yes no CVA tenderness Back/Spine/Pelvis Back: no CVA tenderness Skin General skin exam: elasticity normal, turgor normal and dry skin Neuro General: patient oriented x3 Psych Appearance: grossly normal Mental Status: mental status grossly normal Results Reviewed Results Reviewed: BARIUM SWALLOW X-RAY IMPRESSION: 1. Mild cricopharyngeal achalasia. 2. Mildly disordered esophageal peristalsis. 3. Small type I hiatus hernia at the GE junction. Patulous GE junction. 4. Episodic gastroesophageal reflux to the level of the aortic arch. 5. Normal-appearing stomach, duodenal bulb, duodenum, and proximal small bowel. Assessment & Plan Assessment & Plan (1) [place] grade C esophagitis: Code(s): K20.80 - Other esophagitis without bleeding Category: Medical (2) Upper abdominal pain: Code(s): R10.10 - Upper abdominal pain, unspecified Category: Medical (3) Chronic idiopathic constipation: Code(s): K59.04 - Chronic idiopathic constipation (4) Gastroesophageal reflux disease: Code(s): K21.9 - Gastro-esophageal reflux disease without esophagitis Qualifiers: Esophagitis presence: with esophagitis Esophagitis bleeding: without hemorrhage Qualified Code(s): K21.00 - Gastro-esophageal reflux disease with esophagitis, without bleeding (5) Postprandial epigastric pain: Code(s): R10.13 - Epigastric pain (6) Left upper quadrant abdominal pain: Code(s): R10.12 - Left upper quadrant pain Plan Patient will continue Nexium daily. Avoid dietary triggers and late night snacking. Staying upright for minimum 3 hours after meals discussed with patient. Patient will be going for upper endoscopy to re-evaluate her esophagus then follow-up in the office. Patient is agreeable to current plan of care and verbalizes understanding of instructions. She was given the opportunity to ask questions and all questions answered. Thank you for allowing me to participate in her care Medications: New cholecalciferol (vitamin D3) 50 mcg PO DAILY 90 caps 3RF R79.89 - Other specified abnormal findings of blood chemistry Changed From esomeprazole magnesium 20 mg PO BID 90 days 180 caps 0RF K20.80 - Other esophagitis without bleeding To esomeprazole magnesium 20 mg PO DAILY 90 caps 3RF 90 days K20.80 - Other esophagitis without bleeding Coding Level of Care Code Est Pt Level 3 (28388) Diagnoses [place] grade C esophagitis K20.80 Upper abdominal pain R10.10 Chronic idiopathic constipation K59.04 Gastroesophageal reflux disease with esophagitis without hemorrhage K21.00 Esophagitis presence: with esophagitis Esophagitis bleeding: without hemorrhage Postprandial epigastric pain R10.13 Left upper quadrant abdominal pain R10.12 Time Spent (min) 30 Comment 20 minutes spent with patient and additional 10 minutes spent reviewing her records
[2025-01-05 09:18] VITALS: BP 116/74; PULSE 86; O2SAT 98; BMI 38.8
--- OUTSIDE RECORDS SUMMARY | 2025-01-05 09:18 | XMS_ITS | Clinical Summary ---
Author Organization [facility] Address [address] [place] [address] Care Team Providers Care Milling Machine Tender Name Role Phone Sylvia Del Cid Primary Care Provider Unavailable Allergies Active Allergy Reactions Criticality Noted Date Comments Aspirin 12/12/2009 Ciprofloxacin Hcl 01/01/2012 Reactions: Dizziness , [employer] Comment: [id number]: Red cheeks,pale complexion. S.B. Latex 10/16/2009 Metronidazole [...] Hearing loss 12/28/2019 Overview (07/11/2023): Impression - [id number]: I ordered audiometry test and evaluation. Nausea 12/22/2019 Overview (07/11/2023): Impression - [id number]: Nausea with headache could be recurrent of migraine symptoms. Will treat symptomatically. Unlikely but not impossible presentation for spann virus Adjustment reaction with brief depressive reacti on 08/08/2019 Overview (07/11/2023): Impression - [id number]: I believe secondary to her loss in the family and starting a new job that same time. I gave the patient a letter so should stay home for this week and she will start taking fluoxetine, low dose, 10 milligrams daily and I will follow her up within 1 month. Offered support. Advised to start psychotherapy as well. Impression - [id number]: Seems resolved. Will monitor. The patient will let me know if she starts developing any symptoms again. Back pain, chronic 04/13/2019 Overview (07/11/2023): Impression - [id number]: Unclear etiology; likely muscle skeletal in nature. [...] alcohol. She seems to understand. Impression - [id number]: I advised the patient to use the [...] Abdominal pain 01/07/2012 Overview (07/11/2023): Impression - [id number]: Patient is known to have GERD and it is likely secondary to that versus dyspepsia. I refer the patient back to GI specialist and she might need an endoscopy. Continue with omeprazole for now. Will monitor the symptoms. Advised to call or come back if not improving/worsening. Myalgia and myositis 02/20/2010 Aspirin Toxicity 10/16/2009 Esophageal reflux 10/16/2009 Asthma 10/16/2009 Overview (07/11/2023): Impression - [id number]: I believe that the patient is a high risk for mortality if developing spann virus. 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 I believe that it will decrease her exposure and also help with the anxiety. Impression - [id number]: I believe that the patient is a high risk for mortality if developing spann virus. 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 Encounter for preventive health examination 06/08 Immunizations Immunization Administration Dates Next Due Hep B (adult) [...] 109 12/28/2019 3:05 PM EDT Temperature 36.4 C (97.5 F) 12/28/2019 3:05 PM EDT Respiratory Rate 16 12/28/2019 3:05 PM EDT [...] COVID-19 Vaccine ( season) 2024 Influenza (#1) 2025 02/21/2014, 03/07, 04/03/2006, Additional history exists Zoster (Shingrix) (1 of 2) 11/19/2027 Hep B Completed 04/25/2014, 11/06, 11/02/2013 EKG Discontinued 06/27/2014, 06/08, 03/04/2010, Additional history exists LDL Cholesterol Discontinued 06/29/2014, 02/06, 08/17/2009 Physical Discontinued 03/31/2018, 06/08, 03/04/2010 HPV Vaccine (No Doses Required) Completed Hep A Aged Out No longer eligi [...] Recently Relevant to Health Maintenance Care Teams Milling Machine Tender Relationship Specialty Start Date End Date Sylvia Del Cid PCP - General 01/11/23
--- OUTSIDE RECORDS SUMMARY | 2025-01-05 09:18 | XMS_ITS | Clinical Summary ---
Author Organization [facility] Address [address] [place] [address] Care Team Providers Care Warehouse Handler Name Role Phone Unavailable Primary Care Provider [...]
--- OUTSIDE RECORDS SUMMARY | 2025-01-05 09:18 | XMS_ITS | Clinical Summary ---
Author Organization [facility] Address [address] [place] [address] Care Team Providers Care Rotor Casting Machine Setup Operator Name Role Phone Unavailable Primary Care [...] Cancer Screening (Colonoscopy) 2022 Influenza Vaccine (#1) 2025 Pneumococcal Vaccine Aged Out No long er eligible based on patient's age to complete this topic RSV Ped < 20 months Aged Out No longe r eligible based on patient's age to complete this topic
--- OUTSIDE RECORDS SUMMARY | 2025-01-05 09:18 | XMS_ITS | Encounter Summary ---
Author Organization [facility] Address [address] [place] [address] [address] [place] [address] Care Team Providers Care Consulting It Architect Name Role Phone Susy Edmondson MD Primary Care Provider + Reason for Visit * Reason Comments Med Refill Encounter Details Date Type Department Care Team (Late st Contact Info) Description 05/17/2023 Refill [facility] [address], [place] [phone] Susy Edmondson MD [address], [place] [phone] Social History Tobacco Use Types Packs/Day Years [...] on filedocumented in this encounter Care Teams Consulting It Architect Relationship Specialty Start Date End Date Susy Edmondson MD [address], [place] [phone] PCP - General Family Medicine 08/21/20 documented as of this encounter
--- OUTSIDE RECORDS SUMMARY | 2025-01-05 09:18 | XMS_ITS | Encounter Summary ---
Author Organization [facility] Address [address] [place] [address] Care Team Providers Care Inspector Wire Rope Name Role Phone Pcp, No Primary Care Provider Unavailabl e Encounter Details Date Type Department Care Team ([facility] st Contact Info) Description 07/29/2018 Telephone [facility] [place] [address] [place] [phone] [address] [place] [address] Social History Tobacco Use Types Packs/Day Years [...] on filedocumented in this encounter Care Teams Inspector Wire Rope Relationship Specialty Start Date End Date Pcp, No PCP - General General Medicine 07/26/18 documented as of this encounter
--- OUTSIDE RECORDS SUMMARY | 2025-01-05 09:18 | XMS_ITS ---
Author Name [facility] Organization Unknown Encounters Encounter Type Encounter Reason Primary Diagnosis Location Date Ambulatory [facility] 07/09 Care Team Organization Name Specialty Phone Email Start Date End Da te [facility] Primary Care 08/02/2021 01/24/2024
--- OUTSIDE RECORDS SUMMARY | 2025-01-05 09:20 | XMS_ITS | Clinical Summary ---
Author Organization [facility] Address [address] [place] [address] Care Team Providers Care Certified Surgical Technologist Name Role Phone Unavailable Primary Care Provider [...] series) 1996 Colorectal Cancer Screening: Colonoscopy 05/09/2022 HIV Screening 05/09/2022 Hepatitis C Screening 05/09/2022 Social Influencers of Health Screening 05/09/2022 COVID-19 Vaccine ( - 2023-2 5 season) 2024 Depression Screening 06/07/2024 Influenza Vaccine (#1) 2025 Cervical Cancer Screening: P ap Smear [...] 5 Years) and At-Risk Patients (6 to 49 Years) Aged Out No longer eligi ble [...] RESULTING AGENCY - 11/26/2023 6:26 AM EDT [id number] THINPREP PAP, IMAGED: NEGATIVE FOR SQUAMOUS INTRAEPITHELIAL LESION AND MALIGNANCY TARUN MILLER(ASCP) (CASE ELECTRONICALLY SIGNED 11 25 2023) RESULT OF APTIMA HIGH RISK HPV ASSAY: HIGH RISK HPV: NEGATIVE (SEROTYPES 16,18,31,33,35,39,45,51,52,56,58,59,66,68) COMPLETED ON 2023-11-23 ADEQUACY: SATISFACTORY ENDOCERVICAL/TRANSFORMATION ZONE COMPONENT PRESENT. SOURCE: THINPREP PAP HPV ANY DX: REFLEX 16 AND 18, CERVICAL, IMAGED CLINICAL INFORMATION: HPV ANY DIAGNOSIS. HORMONES, LMP 08/04/23, [Z01.419] Nadia Vogt CNM LAB CYTOLOGY ORDERABLES Final Result HISTORICAL TESTING LAB RESULTING AGENCY from Last 3 Months or Most Recently Relevant to Health Maintenance
== END 2025-01-05 09:41 | disposition home or self-care (01) ==
LOC: HO.HGI 09:01
PROVIDERS: Visit Provider Nurse Practitioner Family
DX: R10.10 Upper abdominal pain, unspecified (principal); K59.04 Chronic idiopathic constipation; K21.00 Gastro-esophageal reflux disease with esophagitis, without bleeding; R10.13 Epigastric pain; R10.12 Left upper quadrant pain
CPT/HCPCS: 99213

== ENCOUNTER 2025-04-17 16:07 | Outpatient (REF) | payer OTHER, SELFPAY ==
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
--- OUTSIDE RECORDS SUMMARY | 2025-04-17 17:22 | XMS_ITS | Encounter Summary ---
Author Organization [employer] Address [address] [place] [address] [address], [place] [address] Care Team Providers Care Fisher Pot Name Role Phone Susy Edmondson MD Primary Care Provider + Encounter Details Date Type Department Care Team (Late Contact Info) Description 12/16/2022 Orders Only [facility] MED[facility]INE [address] [place] [address] [phone] Susy Edmondson MD [address] [place] [address] [phone] Gastric polyp (Primary Dx); Chronic superficial gastritis [...] Department Care Team (Late Contact Info) Description 05/24/2025 12:00 PM EST Office Visit [facility] [address] [place] [address] [phone] Susy Edmondson MD [address] [place] [address] [phone] documented as of this encounter Visit Diagnoses Diagnosis Gastric polyp- Primary Benign neoplasm of stomach Chronic superficial gastritis without bleeding documented in this encounter Care Teams Fisher Pot Relationship Specialty Start Date End Date Susy Edmondson MD [address] [place] [phone] PCP - General Family Medicine 08/21/20 documented as of this encounter
--- OUTSIDE RECORDS SUMMARY | 2025-04-17 17:22 | XMS_ITS | Clinical Summary ---
Author Organization [facility] Address [address] [place] [address] Care Team Providers Care Woodwork Salvage Inspector Name Role Phone Unavailable Primary Care Provider [...]
--- OUTSIDE RECORDS SUMMARY | 2025-04-17 17:22 | XMS_ITS | Encounter Summary ---
Author Organization [employer] Address [address] [place] [address] 7 [place] [address] Care Team Providers Care Pick Pulling Machine Tender Name Role Phone Susy Edmondson MD Primary Care Provider + Reason for Visit * Reason Onset Date Comments Letter for School/Work 07/08/2023 Encounter Details Date Type Department Care Team ([facility] st Contact Info) Description 07/08/2023 Telephone [facility] MEDICINE [address] [place], [place] [phone] Susy Edmondson MD [address] [place] [address] Letter for School/Work Social History Tobacco Use [...] EST Letter generated and sent to scan. [facility] to pt informing that note is available through [employer] and if pt would like copy mailed to us to return call to office to inform. * Telephone Encounter - Aryan Morris - 07/08/2023 3:28 PM EST Tc from pt had televisit with Dr. Drew 07/07/23 requesting letter to excuse her from work due to covid. If any questions please contact pt at [phone] documented in this encounter Plan of Treatment Upcoming Encounters Date Type Department Care Team (Late st Contact Info) Description 05/24/2025 12:00 PM EST Office Visit [facility] MEDICINE [address] [place] [address] [phone] Susy Edmondson MD [address] [place] [phone] documented as of this encounter Visit Diagnoses Not on filedocumented in this encounter Care Teams Pick Pulling Machine Tender Relationship Specialty Start Date End Date Susy Edmondson MD [address] [place] [address] [phone] PCP - General Family Medicine 08/21/20 documented as of this encounter
--- OUTSIDE RECORDS SUMMARY | 2025-04-17 17:22 | XMS_ITS | Encounter Summary ---
Author Organization [employer] Address [address] [place] [address] Care Team Providers Care Operator Weapon Locating Radar Name Role Phone Susy Edmondson MD Primary Care Provider + Reason for Visit * Reason Comments Med Refill Encounter Details Date Type Department Care Team (Late Contact Info) Description 05/17/2023 Refill [facility] MED[facility]INE [address] [place] [address] [phone] uSsy Edmondson MD [address] [place] [address] [phone] Social History Tobacco Use Types Packs/Day Years [...] Description 05/24/2025 12:00 PM EST Office Visit [facility] MED[facility]INE [address] [place] [address] [phone] Susy Edmondson MD [address] [place], [place] [phone] documented as of this encounter Visit Diagnoses Not on filedocumented in this encounter Care Teams Operator Weapon Locating Radar Relationship Specialty Start Date End Date Susy Edmondson MD [address] [place] [phone] PCP - General Family Medicine 08/21/20 documented as of this encounter
--- OUTSIDE RECORDS SUMMARY | 2025-04-17 17:22 | XMS_ITS | Clinical Summary ---
Author Organization [employer] Address [address] [place] [address] 7 [place] [address] Care Team Providers Care Health Navigator Name Role Phone Susy Edmondson MD Primary [...] 24 Active ergocalciferol (Vitamin D2) 1.25 MG (09789 UT) capsuleIndicat ions:Vitamin D deficiency TAKE 1 CAPSULE BY MOUTH ONCE WEEKLY 12 capsule 1 10/20/19 24 Active sucralfate (Carafate) 1 g tablet Take [...] 18 g 3 06/20/19 25 026 Active fluticasone (Flonase) 50 MCG/ACT nasal spray Administer 1 spray into each nostril Once per day. 16 g 2 06/20/19 25 Active Diclofenac Sodium 1 % gel APPLY 2 GRAMS TO AFFECTED AREA(S) ONCE DAILY OR TWICE DAILY NEEDED 100 g 1 11/09/19 25 Active SUMAtriptan (Imitrex) 25 MG tabletIndicati ons:Chronic migraine with aura and with status migrainosus, not intractable Take 1 tablet (25 mg) by mouth 1 (one) time if needed for migraine for up to 1 dose. May repeat dose once in 2 hours if no relief. Do not exceed 2 doses in 24 hours. 9 tablet 02/24/20 25 Active cyclobenzaprin e (Flexeril) 10 MG tabletIndicati ons:Chronic right-sided low back pain without sciatica TAKE 1 TABLET BY MOUTH AT BEDTIME 30 tablet 3 02/28/20 25 Active amitriptyline (Elavil) 10 MG tabletIndicati ons:Chronic migraine with aura and with status migrainosus, not intractable Take 1 tablet (10 mg) by mouth at bedtime. 30 tablet 1 03/19/20 25 025 Active ibuprofen 600 MG tablet Take 1 tablet (600 mg) by mouth every 8 (eight) hours if needed for mild pain or moderate pain. 90 tablet 04/16/20 25 025 Active Nirmatrelvir&R itonavir 300/100 (Paxlovid, 300/100,) 20 x 150 MG & 10 x 100MG tablet therapy pack Take 3 tablets by mouth 2 times daily for 5 days. 30 each 04/16/20 25 025 Active amitriptyline (Elavil) 25 MG tabletIndicati ons:Chronic migraine with aura and with status migrainosus, not intractable Take 1 tablet (25 mg) by mouth at bedtime. 30 tablet 1 02/24/20 25 025 Discontinued Active Problems Problem Noted Date Diagnosed Date Memory impairment 04/17/2025 Assessment & Plan (04/17/2025 4:39 PM EST): - Cognitive difficulties and distractibility likely multifactorial, [...] CT scan of the brain and labs Hypersomnia 03/19/2025 Assessment & Plan (03/19/2025 2:52 PM EDT): Sleep study is ordered today Snoring 03/19/2025 Assessment & Plan (03/19/2025 2:52 PM EDT): Sleep study is ordered today Chronic migraine with aura a nd with status migrainosus, not intractable 02/23/2025 Assessment & Plan (03/19/2025 2:51 PM EDT): I went down on the dose of amitriptyline to 10 mg at bedtime I advised to take her sumatriptan if she has a really bad episode I will also order sleep studies in light that she is having headaches when she wakes up I refer her to to neurology Assessment & Plan (02/23/2025 2:33 PM EDT): I advise to avoid migraine triggers like red wine, chocolate, cheese, strong perfumes I will start patient on amitriptyline 25 mg at bedtime I also prescribed for her sumatriptan to be taken as needed (please follow prescription instructions) I also prescribed for patient Zofran for the nausea Plan is to follow-up with her in 4 to 6 weeks RSV (respiratory syncytial virus infection) 06/07 Assessment & Plan (06/20/2024 4:36 PM EST): Rest (sleep at least 8 hours a night), she will be out of work this week. Hydrate with plenty of water (avoid caffeine and alcohol). Use saline nose drops to loosen mucus + Flonase. Take Acetaminophen (Tylenol )/Ibuprofen as needed to reduce fever, headache, body [...] 72 hours (temperature should be less than 100 F without medication). Body aches 06/20/2024 Exacerbation of [...] UTD? Will obtain results [place] [facility] [place]: UTD, she will fu next [...] migrainosus, not intractable 09/06/2023 Assessment & Plan (04/17/2025 4:37 PM EST): - Migraines present; CT scan of the brain ordered to rule out other causes. - Will perform CT scan of the brain. Referral information for neurology provided. 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 Chronic constipation 05/15/2022 COVID-19 05/15/2022 Assessment & Plan (04/16/2025 5:36 PM EST): Paxlovid x 5d, start today due to history asthma Rest (sleep at least 8 hours a night). Out of work x 5d, should wear a mask at home x the next 5d and while symptomatic. Hydrate with plenty of water (avoid caffeine and alcohol). Use saline nose drops to loosen mucus + Flonase Take Acetaminophen (Tylenol )/Ibuprofen as needed to reduce fever, headache, body [...] 72 hours (temperature should be less than 100 F without medication). Gastroesophageal reflux disease 05/15/2022 Hand pain 05/15/2022 [...] exercise, life style modifications, diet, referral to demo event specialist. - Discussed re lower calorie intake, [...] Encounters Date Type Department Care Team Description 04/16/2025 2:15 PM EST Office Visit [facility] MEDICINE [address] [place] [phone] Susy Edmondson MD Memory impairment (Primary Dx); COVID-19; 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, not intractable; Screening mammogram for breast cancer; Pre-diabetes; Congestion of nasal sinus; Trauma and stressor-related disorder 04/16/2025 Travel 03/19/2025 2:30 PM EDT Telemedicine [facility] MEDICINE [address] [place] [address] Julieth Hayes MD Chronic migraine with aura and with status migrainosus, not intractable; Hypersomnia; Snoring 03/19/2025 Travel 02/24/2025 Refill [facility] MED[facility]INE [address] [place] [address] Susy Edmondson MD Chronic right-sided low back pain without sciatica 02/23/2025 2:00 PM EDT Office Visit [facility] WALK-IN CENTER [address] [place] [address] Julieth Hayes MD Chronic migraine with aura and with status migrainosus, not intractable 02/23/2025 Travel 01/15/2025 Refill [facility] CHC MED & PEDS [address] [place] [address] Susy Edmondson MD from Last 3 Months Immunizations Immunization Administration [...] Mass Index 39.02 04/16/2025 2:32 PM EST Plan of Treatment Upcoming Encounters Date Type Department Care Team (Late st Contact Info) Description 05/24/2025 12:00 PM EST Office Visit [facility] MEDICINE [address] [place] [address] Susy Edmondson MD [address] [place] [address] Health Maintenance Due Date Last Done Comments CT Colonography 1977 FIT DNA/Cologuard 1977 FIT 1977 FOBT 1977 Sigmoidoscopy 1977 Disability Screening 1977 Alcohol/Substance Use Screening 1989 Family Planning (PISQ) 1992 Pneumococcal Vaccine: Pediatrics (0 to 5 Years) and At-Risk Patients (6 to 49) Years (1 of 2 - PCV) 1996 Mammogram 10/23/2022 10/23/2020, 12/2018, 04/13/2019, Additional history exists Depression Screening 09/05/2024 09/06/2023, 09/06/19 24 COVID-19 Vaccine ( - season) 2025 07/15/2021, 10/15/2020, 09/17/2020 Influenza Vaccine (#1) 2025 4, 03/24/2010, 04/03/2006, Additional history exists Cervical Cancer Screening 09/03/2025 HPV/Cotest 09/03/2025 09/03/2020 Pap Smear 09/03/2025 09/03/2020 SDOH Screening 10/03/2025 10/03/2024 Tobacco Screening 04/16/2026 04/16/2025 Zoster Vaccines (1 of 2) 11/19/2027 Lipid [...] 3:18 PM EST Congestion of nasal sinus HM COLONOSCOPY Routine 09/12/2024 HEPATITIS PANEL, GENERAL [...] Recently Relevant to Health Maintenance Results * (ABNORMAL) POCT Rapid Covid-19 BinaxNOW (04/16/2025 3:18 PM EST) Rapid COVID Ag Positive QC Media Lot # [id number] Lot# Expiration Date [id number] Swab 04/16/2025 3:18 PM EST Susy Edmondson MD POINT OF CARE TEST ENTER /EDIT ORDERABLES Final Result * Hm Colonoscopy (09/12/2024) Colonoscopy Normal Normal Comment:benign polyp Susy Edmondson MD HEALTH MAINTENANCE Final Result * (ABNORMAL) Lipid Panel with Reflex to Direct LDL (10/13/2023 9:29 AM EDT) Pathologist [facility] [place] Triglycerides 235(H) <150 mg/dL [facility] Comment:Desirable Triglyceri de: less than 150 mg/dLBorderline High Triglyceride 150-199 mg/dLHigh Triglyceride: 200-499 mg/dLVery High Triglyceride: greater than or equal to 5OO mg/dL Cholesterol 242(H) <200 mg/dL [facility] Comment:Desirable Cholestero l: less than 200 mg/dLBorderline High Cholesterol: 200-239 mg/dLHigh Cholesterol: greater than 239 mg/dL LDL Cholesterol Calculated 151(H) <100 mg/dL [facility] Comment:Desirable LDL: less than 100 mg/dLNear Optimal/Above Optimal LDL: 110- 129 mg/dLBorderline High LDL: 130-159 mg/dLHigh LDL: 160-189 mg/dLVery High LDL: greater than or equal to 190 mg/dL HDL Cholesterol 44 >40 mg/dL [facility] Comment:Desirable HDL: great er than 40 mg/dL Note: This HDL assay may give artificially low results in patients with liver disease. Blood 10/13/2023 9:29 AM EDT 10/13/2023 11:25 AM EDT Susy Edmondson MD LAB BLOOD ORDERABLES Fin al Result [facility] [address] [place] [phone] * Hepatitis Panel, General (10/13/2023 9:29 AM EDT) Hepatitis A IgM Nonreactive Nonreactive [facility] Comment:IgM antibodies to TELLO V not detected; does not exclude earlyacute or recovered HAV infection. ~Hepatitis B Surface Antibody NONREACTIVE Nonreactive [facility] Comment:Nonreactive: < 8.00 mIU/mL Hepatitis B Core Antibody Nonreactive Nonreactive [facility] Hepatitis C Antibody Nonreactive Nonreactive [facility] Comment:Antibodies to HCV no t detected; does not exclude early acuteHCV infection. Hepatitis B Surface Ag Negative Negative [facility] Blood 10/13/2023 9:29 AM EDT 10/13/2023 11:25 AM EDT us Susy Edmondson MD LAB BLOOD ORDERABLES Fin al Result [facility] [address] [place] [phone] * HIV-1/2 Antigen and Antibodies, Fourth Generation, with Reflexes (10/13/2023 9:29 AM EDT) Pathologist [facility] [place] HIV AB/AG Nonreactive Nonreactive [facility] Comment:HIV-1 p24 Ag and/or HIV-1/HIV-2 Ab not detected.A test result that is nonreactive does not exclude thepossibility of exposure to or infection with HIV-1 and/orHIV-2. Nonreactive results in this assay for individualswith prior exposure to HIV-1 and/or HIV-2 may be due toantigen and antibody levels that are below the limit ofdetection of this assay.The [facility] [facility] HIV Ag/Ab Combo assay result andsupplemental assay results should be interpreted inconjunction with the patient's clinical presentation,history and other laboratory results. If the results areinconsistent with clinical evidence, additional testing issuggested to confirm the result. Blood Venous blood specimen / Unknown 10/13/2023 9:29 AM EDT 10/13/2023 11:25 AM EDT us Susy Edmondson MD LAB BLOOD ORDERABLES Fin al Result [facility] [address] [place] [phone] * Mammography Report 1 (10/23/2020 10:00 [...] [facility] Comment: EXPLANATORY NOTE: The Pap is a screening test for cervical cancer. It is not a diagnostic test and is subject to false negative and false positive results. It is most reliable when a satisfactory sample, regularly obtained, is submitted with relevant clinical findings and history, and when the Pap result is evaluated along with historic and current clinical information. Floating Operator : SEE COMMENT [facility] Comment: YP, CT(ASCP) CT screening location: [place] [address] Interpretation/R esult: Negative for intraepithelial lesion or malignancy. [facility] LMP: NONE GIVEN [facility] Prev. BX: NONE GIVEN [facility] Prev. PAP: NONE GIVEN [facility] Review Floating Operator : SEE COMMENT [facility] Comment: DCR, CT(ASCP) CT screening location: [place] [address] SOURCE: None given [facility] Statement Of Adequacy: SEE COMMENT [facility] Comment: Satisfactory for evaluation. Endocervical/transformation zone component present. Age and/or menstrual status not provided 09/03/2020 3:37 PM EDT Lily Ayaan [facility] PATHOLOGY ORDERABLES Final Result Performing Organization Address [facility] Co de Phone Number [facility] [address] * HPV mRNA E6/E7 (09/03/2020 3:37 PM EDT) HPV nRNA E6/E7 Not Detected Not Detected [facility] Comment: Methodology: Program Specialist-Mediated Amplification This assay detects E6/E7 viral messenger RNA (mRNA) from 14 high-risk HPV types (16,18,31,33,35,39,45,51,52,56,58,59,66,68). The analytical performance characteristics of this assay have been determined by [employer]. The modifications have not been cleared or approved by the FDA. This assay has been validated pursuant to the CLIA regulations and is used for clinical purposes. For additional information, please refer to http://education.[employer]/faq/VWV888x0 (This link if provided for information/ educational purposes only.) 09/03/2020 3:37 PM EDT Lily Ayaan [facility] LAB BLOOD ORDERABLES Brittani l Result Performing Organization Address [facility] Co de Phone Number [facility] [address] from Last 3 Months or Most Recently Relevant to Health Maintenance Insurance [facility] Care Teams Health Navigator Relationship Specialty Start Date End Date Susy Edmondson MD [address] [place] [phone] PCP - General Family Medicine 08/21/20
--- OUTSIDE RECORDS SUMMARY | 2025-04-17 17:22 | XMS_ITS | Clinical Summary ---
Author Organization [facility] Address [address] [place] [address] Care Team Providers Care Skills Instructor Name Role Phone Sylvia Del Cid Primary Care Provider Unavailable Allergies Active Allergy Reactions Criticality Noted Date Comments Aspirin 12/12/2009 Ciprofloxacin Hcl 01/01/2012 Reactions: Dizziness , [employer] Comment: [id number]: Red cheeks,pale complexion. S.B. Latex 10/16/2009 Metronidazole [...] Hearing loss 12/28/2019 Overview (07/11/2023): Impression - [id number]: I ordered audiometry test and evaluation. Nausea 12/22/2019 Overview (07/11/2023): Impression - [id number]: Nausea with headache could be recurrent of migraine symptoms. Will treat symptomatically. Unlikely but not impossible presentation for spann virus Adjustment reaction with brief depressive reacti on 08/08/2019 Overview (07/11/2023): Impression - [id number]: I believe secondary to her loss in the family and starting a new job that same time. I gave the patient a letter so should stay home for this week and she will start taking fluoxetine, low dose, 10 milligrams daily and I will follow her up within 1 month. Offered support. Advised to start psychotherapy as well. Impression - [id number]: Seems resolved. Will monitor. The patient will let me know if she starts developing any symptoms again. Back pain, chronic 04/13/2019 Overview (07/11/2023): Impression - [id number]: Unclear etiology; likely muscle skeletal in nature. [...] alcohol. She seems to understand. Impression - [id number]: I advised the patient to use the [...] Abdominal pain 01/07/2012 Overview (07/11/2023): Impression - [id number]: Patient is known to have GERD and it is likely secondary to that versus dyspepsia. I refer the patient back to GI specialist and she might need an endoscopy. Continue with omeprazole for now. Will monitor the symptoms. Advised to call or come back if not improving/worsening. Myalgia and myositis 02/20/2010 Aspirin Toxicity 10/16/2009 Esophageal reflux 10/16/2009 Asthma 10/16/2009 Overview (07/11/2023): Impression - [id number]: I believe that the patient is a high risk for mortality if developing spann virus. 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 I believe that it will decrease her exposure and also help with the anxiety. Impression - [id number]: I believe that the patient is a high risk for mortality if developing spann virus. 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 Encounter for preventive health examination 06/08 [...] Hepatitis C Screening 1977 Pap Smear 1993 Mammogram/Breast Imaging 2017 015, 08/01/2014, 08/01/2014 DTaP/Tdap/Td (3 - Td or Tdap) 11/03/2023 11/02/2013, 06/07/1999 COVID-19 Vaccine ( season) 2025 Influenza (#1) 2025 02/21/2014, 03/07, 04/03/2006, Additional history exists Zoster (Shingrix) (1 of 2) 11/19/2027 Hep B Completed 04/25/2014, 11/06, 11/02/2013 HPV Vaccine (No Doses Required) Completed Hep A Aged Out No longer eligi ble based on patient's age to complete this topic Hib Aged Out No longer eligi ble based on patient's age to complete this topic Meningococcal ACWY Aged Out No longer eligible based on patient's age to complete this topic Pneumococcal Aged Out No longer eligi ble based on patient's age to complete this topic Procedures Procedure Name Priority Date/Time Associated Diagnosis Comments MAMMOGRAPHY, DIAGNOSTIC UNILAT - LEFT FC Routine 02/04/2015 5:23 PM EDT from Last 3 Months or Most Recently Relevant to Health Maintenance Results * MAMMOGRAPHY, DIAGNOSTIC UNILAT - LEFT FC (02/04/2015 5:23 PM EDT) MAMMOGRAM RESULT probably benign PHCT CONVERSIONS Anatomical Region Laterality Modality BREAST Left Mammography 02/04/2015 5:23 PM EDT us Willam Nair MD IMG MAMMO ORDERABLES Brittani l Result from Last 3 Months or Most Recently Relevant to Health Maintenance Care Teams Skills Instructor Relationship Specialty Start Date End Date Sylvia Del Cid PCP - General 01/11/23
--- OUTSIDE RECORDS SUMMARY | 2025-04-17 17:22 | XMS_ITS | Encounter Summary ---
Author Organization [employer] Address [address] [place] [address] 7 [place] [address] Care Team Providers Care Switchboard Operator Receptionist Name Role Phone Susy Edmondson MD Primary Care Provider + Reason for Visit * Reason Onset Date Comments Nurse Triage 05/23/2024 Encounter Details Date Type Department Care Team ([facility] st Contact Info) Description 05/23/2024 Telephone [facility] MEDICINE [address] [place], [place] [phone] Susy Edmondson MD [address] [place], [place] [phone] Nurse Triage Social History Tobacco Use Types [...] questions regarding medications. Pt was seen in [facility] 05/03/24 for asthma. Orderswere given for [...] provider. Pt is advised can come to [facility] if needed. Pt reports will wait [...] Description 05/24/2025 12:00 PM EST Office Visit [facility] MEDICINE [address] [place] [address] Susy Edmondson MD [address] [place] [address] documented as of this encounter Visit Diagnoses Not on filedocumented in this encounter Additional Health Concerns Assessment Noted Time PHQ-9 Depression Total Score: 0 09/06/19 24 10:59 AM EDT documented as of this encounter Care Teams Switchboard Operator Receptionist Relationship Specialty Start Date End Date Susy Edmondson MD [address] [place] [address] PCP - General Family Medicine 08/21/20 documented as of this encounter
--- OUTSIDE RECORDS SUMMARY | 2025-04-17 17:22 | XMS_ITS | Clinical Summary ---
Author Organization [facility] Address [address] [place] [address] Care Team Providers Care Lusterer Name Role Phone Pcp, No Primary Care [...] 99 07/26/2018 9:24 AM EST Temperature 36.8 C (98.2 F) 07/26/2018 9:24 AM EST Respiratory Rate - - Oxygen Saturation 100% [...] 04/13/2021 04/13/2019, 09/17/2018 Colonoscopy 2022 Influenza Vaccine 01/05/2025 COVID-19 Vaccine (1 - 2023-2 5 season) 2025 Pneumococcal Vaccine: Pediatric (0-5 Years) and At-Risk [...] the following family history of breast cancer: great grandmother. FILMS COMPARED: The present examination has [...] your patient to us, Marii Eisenberg MD [phone] (Electronically Signed - 04/13/2019 16:30) Copy: KENTRELL BERNARDO MD [facility] [address] [address] Procedure Note Marii Eisenberg MD [...] patient's personal breast tissue composition as required [facility] law. BIRADS Category 3: Probably Benign Finding(s) Thank you for referring your patient to us, Marii Eisenberg MD [phone] (Electronically Signed - 04/13/2019 16:30) Copy: KENTRELL BERNARDO MD [facility] [address] [place] [address] Amara Toscano APRN IMG LEGACY PROCEDURES Fi nal Result from Last 3 Months or Most Recently Relevant to Health Maintenance Insurance [facility] [employer] Care Teams Lusterer Relationship Specialty Start Date End Date Pcp, No PCP - General General Medicine 07/26/18
--- OUTSIDE RECORDS SUMMARY | 2025-04-17 17:24 | XMS_ITS | Encounter Summary ---
Author Organization [employer] Address [address] [place] [address] [place] [address] Care Team Providers Care Legal Nurse Consultant Name Role Phone Susy Edmondson MD Primary Care Provider + Reason for Visit * Reason Comments Med Refill Encounter Details Date Type Department Care Team ([facility] st Contact Info) Description 08/23/2023 Refill [facility] CHC MED & PEDS [address] [place], [place] [phone] Rafa Mondragon MD [address] [place] [address] Social History Tobacco Use Types Packs/Day Years [...] Description 05/24/2025 12:00 PM EST Office Visit [facility] MEDICINE [address] [place] [phone] Susy Edmondson MD [address] [place] [phone] documented as of this encounter Visit Diagnoses Not on filedocumented in this encounter Care Teams Legal Nurse Consultant Relationship Specialty Start Date End Date Susy Edmondson MD [address] [place] [phone] PCP - General Family Medicine 08/21/20 documented as of this encounter
--- OUTSIDE RECORDS SUMMARY | 2025-04-17 17:24 | XMS_ITS | Encounter Summary ---
Author Organization [employer] Address [address] [facility] 7 [place] [address] Care Team Providers Care Trim Die Maker Name Role Phone Susy Edmondson MD Primary Care Provider + Encounter Details Date Type Department Care Team ([facility] st Contact Info) Description 11/06/2024 Orders Only [facility] MED & PEDS [address] [place], [place] [phone] Yolie Miller MD [address] [place] [address] Cystitis Social History Tobacco Use Types Packs/Day Years [...] Description 05/24/2025 12:00 PM EST Office Visit [facility] MEDICINE [address] [place] [address] Susy Edmondson MD [address] [place] [address] documented as of this encounter Visit Diagnoses Diagnosis Cystitis Unspecified cystitis documented in this encounter Additional Health Concerns Assessment Noted Time PHQ-9 Depression Total Score: 0 09/06/19 24 10:59 AM EDT documented as of this encounter Care Teams Trim Die Maker Relationship Specialty Start Date End Date Susy Edmondson MD [address] [place] [address] PCP - General Family Medicine 08/21/20 documented as of this encounter
--- OUTSIDE RECORDS SUMMARY | 2025-04-17 17:24 | XMS_ITS | Encounter Summary ---
Author Organization [employer] Address 75 [facility] [address] [place] [address] Care Team Providers Care Drapery And Upholstery Estimator Name Role Phone Susy Edmondson MD Primary Care Provider + Reason for Visit * Reason Comments Med Refill Encounter Details Date Type Department Care Team ([facility] st Contact Info) Description 09/10/2023 Refill [facility] WALK-IN CENTER [address] [place], [place] [phone] Lyudmila Puri FNP [address] [place] [address] Social History Tobacco Use Types Packs/Day Years [...] Description 05/24/2025 12:00 PM EST Office Visit [facility] MEDICINE [address] [place] [phone] Susy Edmondson MD [address] [place] [phone] documented as of this encounter Visit Diagnoses Not on filedocumented in this encounter Additional Health Concerns Assessment Noted Time PHQ-9 Depression Total Score: 0 09/06/19 24 10:59 AM EDT documented as of this encounter Care Teams Drapery And Upholstery Estimator Relationship Specialty Start Date End Date Susy Edmondson MD [address] [place] [phone] PCP - General Family Medicine 08/21/20 documented as of this encounter
--- OUTSIDE RECORDS SUMMARY | 2025-04-17 17:24 | XMS_ITS | Encounter Summary ---
Author Organization [employer] Address 75 [facility] 7 [place] [address] Care Team Providers Care Plunger Scoop Operator Name Role Phone Susy Edmondson MD Primary Care Provider + Encounter Details Date Type Department Care Team (Latest Contact Info) Description 04/16/2025 Travel Social History Tobacco Use Types Packs/Day Years [...] Description 05/24/2025 12:00 PM EST Office Visit [facility] MEDICINE [address] [place] [address] Susy Edmondson MD [address] [place] [address] documented as of this encounter Visit Diagnoses Not on filedocumented in this encounter Additional Health Concerns Assessment Noted Time PHQ-9 Depression Total Score: 0 09/06/19 24 10:59 AM EDT documented as of this encounter Care Teams Plunger Scoop Operator Relationship Specialty Start Date End Date Susy Edmondson MD [address] [place] [address] PCP - General Family Medicine 08/21/20 documented as of this encounter
--- OUTSIDE RECORDS SUMMARY | 2025-04-17 17:24 | XMS_ITS | Encounter Summary ---
Author Organization [employer] Address 75 [facility] 7 [place] [address] Care Team Providers Care Oven Tender Bagels Name Role Phone Susy Edmondson MD Primary Care Provider + Reason for Visit * Reason Onset Date Comments Appointment Request 08/25/2023 Encounter Details Date Type Department Care Team ([facility] st Contact Info) Description 08/25/2023 Telephone [facility] MEDICINE [address] [place], [place] [phone] Susy Edmondson MD [address] [place], [place] [phone] Appointment Request Social History Tobacco Use Types [...] Description 05/24/2025 12:00 PM EST Office Visit [facility] MEDICINE [address] [place] [address] Susy Edmondson MD [address] [place] [address] documented as of this encounter Visit Diagnoses Not on filedocumented in this encounter Care Teams Oven Tender Bagels Relationship Specialty Start Date End Date Susy Edmondson MD [address] [place] [address] PCP - General Family Medicine 08/21/20 documented as of this encounter
--- OUTSIDE RECORDS SUMMARY | 2025-04-17 17:24 | XMS_ITS | Clinical Summary ---
Author Organization [facility] ity Address [address] [place] [address] Care Team Providers Care Health Inspector Food Name Role Phone Unavailable Primary Care Provider [...] Last Done Comments Breast Cancer Screening 1977 Colorectal Cancer Screening: Colonoscopy 1977 DTaP,Tdap,and Td Vaccines (1 - Tdap) 1996 Hepatitis B Vaccines (1 of 3 - 19+ 3-dose series) 1996 HIV Screening 05/09/2022 Hepatitis C Screening 05/09/2022 Social Influencers of Health Screening 05/09/2022 Depression Screening 06/07/2024 COVID-19 Vaccine (1 - 2024-2 6 season) 2025 Influenza Vaccine (#1) 2025 Cervical Cancer Screening: P ap Smear 2026 11/19/2023 RSV Immunization Adult Patie nts (1 - 1-dose 75+ series) 2052 HIB Vaccines Aged Out No longer eligi [...] RESULTING AGENCY - 11/26/2023 6:26 AM EDT [id number] THINPREP PAP, IMAGED: NEGATIVE FOR SQUAMOUS INTRAEPITHELIAL LESION AND MALIGNANCY TARUN MILLER(ASCP) (CASE ELECTRONICALLY SIGNED 11 25 2023) RESULT OF APTIMA HIGH RISK HPV ASSAY: HIGH RISK HPV: NEGATIVE (SEROTYPES 16,18,31,33,35,39,45,51,52,56,58,59,66,68) COMPLETED ON 2023-11-23 ADEQUACY: SATISFACTORY ENDOCERVICAL/TRANSFORMATION ZONE COMPONENT PRESENT. SOURCE: THINPREP PAP HPV ANY DX: REFLEX 16 AND 18, CERVICAL, IMAGED CLINICAL INFORMATION: HPV ANY DIAGNOSIS. HORMONES, LMP 08/04/23, [Z01.419] us Nadia [facility] CYTOLOGY ORDERABLES Final Result HISTORICAL TESTING LAB RESULTING AGENCY from Last 3 Months or Most Recently Relevant to Health Maintenance
[2025-04-17 18:19] LABS: Anion Gap 10 (12-20); Blood Urea Nitrogen 10 mg/dL (9-16); Calcium 9.3 mg/dL (8.4-10.2); Carbon Dioxide 29 mmol/L (22-29); Chloride 105 mmol/L (96-108); Estimated Glomerular Filt Rate > 60; Potassium 3.8 mmol/L (3.3-5.1); Sodium 140 mmol/L (135-145)
[2025-04-18 05:17] LABS: Total Hemoglobin (HGBA1C) 2258.6789 umol/L
[2025-04-18 07:22] LABS: Lyme Abs Screen <0.90 index
== END 2025-04-17 16:08 | disposition home or self-care (01) ==
LOC: HO.HHCL 16:07
PROVIDERS: PCP Internal Medicine; Visit Provider Internal Medicine
DX: Z13.1 Encounter for screening for diabetes mellitus (principal); Z01.84 Encounter for antibody response examination; G43.509 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 infarction, not intractable, without status migrainosus
CPT/HCPCS: 36415; 80048; 83036; 84443; 86617; 86618

== ENCOUNTER 2025-04-27 15:29 | Outpatient (REF) | payer OTHER, SELFPAY ==
--- NOTE | ~2025-04-27 | MM_ITS ---
EXAMINATION: MM SCREENING DIGITAL BREAST TOMOSYNTHESIS, BILATERAL CLINICAL INFORMATION: Screening. Asymptomatic. COMPARISON: Mammography: Comparison is made with available priors TECHNIQUE: Digital breast mammography with tomosynthesis is performed in both the craniocaudal and mediolateral oblique views along with computer-aided detection (CAD). FINDINGS: There are scattered areas of fibroglandular density. There are no significant masses, abnormal calcifications, or other abnormalities. MM/MM tomosynthesis screening BI IMPRESSION: No mammographic evidence of malignancy. ASSESSMENT: BI-RADS Category 1: Negative RECOMMENDATION: Routine annual mammography screening. 1 year F/U This examination should not preclude the clinical evaluation of a suspicious palpable abnormality. This patient's information was entered into a reminder system with a target due date for their next mammogram. Electronically signed by: Candelaria Spaulding DO 05/01/2025 03:24 PM SAMIR
--- OUTSIDE RECORDS SUMMARY | 2025-04-27 15:34 | XMS_ITS | Clinical Summary ---
Author Organization [facility] Address [address] [place] [address] Care Team Providers Care Pad Machine Offbearer Name Role Phone Unavailable Primary Care Provider [...]
--- OUTSIDE RECORDS SUMMARY | 2025-04-27 15:34 | XMS_ITS | Clinical Summary ---
Author Organization [facility] Address [address] [place] [address] Care Team Providers Care Projection Technician Name Role Phone Sylvia Del Cid Primary Care Provider Unavailable Allergies Active Allergy Reactions Criticality Noted Date Comments Aspirin 12/12/2009 Ciprofloxacin Hcl 01/01/2012 Reactions: Dizziness , [employer] Comment: [id number]: Red cheeks,pale complexion. S.B. Latex 10/16/2009 Metronidazole [...] Hearing loss 12/28/2019 Overview (07/11/2023): Impression - [id number]: I ordered audiometry test and evaluation. Nausea 12/22/2019 Overview (07/11/2023): Impression - [id number]: Nausea with headache could be recurrent of migraine symptoms. Will treat symptomatically. Unlikely but not impossible presentation for spann virus Adjustment reaction with brief depressive reacti on 08/08/2019 Overview (07/11/2023): Impression - [id number]: I believe secondary to her loss in the family and starting a new job that same time. I gave the patient a letter so should stay home for this week and she will start taking fluoxetine, low dose, 10 milligrams daily and I will follow her up within 1 month. Offered support. Advised to start psychotherapy as well. Impression - [id number]: Seems resolved. Will monitor. The patient will let me know if she starts developing any symptoms again. Back pain, chronic 04/13/2019 Overview (07/11/2023): Impression - [id number]: Unclear etiology; likely muscle skeletal in nature. [...] alcohol. She seems to understand. Impression - [id number]: I advised the patient to use the [...] Abdominal pain 01/07/2012 Overview (07/11/2023): Impression - [id number]: Patient is known to have GERD and it is likely secondary to that versus dyspepsia. I refer the patient back to GI specialist and she might need an endoscopy. Continue with omeprazole for now. Will monitor the symptoms. Advised to call or come back if not improving/worsening. Myalgia and myositis 02/20/2010 Aspirin Toxicity 10/16/2009 Esophageal reflux 10/16/2009 Asthma 10/16/2009 Overview (07/11/2023): Impression - [id number]: I believe that the patient is a high risk for mortality if developing spann virus. 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 I believe that it will decrease her exposure and also help with the anxiety. Impression - [id number]: I believe that the patient is a high risk for mortality if developing spann virus. 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 Encounter for preventive health examination 06/08 Immunizations [...] Recently Relevant to Health Maintenance Care Teams Projection Technician Relationship Specialty Start Date End Date Sylvia Del Cid PCP - General 01/11/23
--- OUTSIDE RECORDS SUMMARY | 2025-04-27 15:34 | XMS_ITS | Encounter Summary ---
Author Organization [employer] Address [address] [place] [address] [place] [address] Care Team Providers Care Rn Clinical Name Role Phone Susy Edmondson MD Primary Care Provider + Reason for Visit * Reason Comments Med Refill Encounter Details Date Type Department Care Team ([facility] st Contact Info) Description 08/23/2023 Refill [facility] CHC MED & PEDS [address] [place], [place] [phone] Rafa Mondragon MD [address] [place] [address] Social History Tobacco Use Types Packs/Day Years [...] Care Team (Late st Contact Info) Description 04/30/2025 11:30 AM EST Telemedicine [facility] MEDICINE [address] [place] [place] [phone] Susy Edmondson MD [address] [place] [address] 05/24/2025 12:00 PM EST Office Visit [facility] MEDICINE [address] [place] [place] [phone] Susy Edmondson MD [address] [place] [address] documented as of this encounter Visit Diagnoses Not on filedocumented in this encounter Care Teams Rn Clinical Relationship Specialty Start Date End Date Susy Edmondson MD [address] [place] [phone] PCP - General Family Medicine 08/21/20 documented as of this encounter
--- OUTSIDE RECORDS SUMMARY | 2025-04-27 15:34 | XMS_ITS | Clinical Summary ---
Author Organization [facility] Address [address] [place] [address] Care Team Providers Care Sampler Ovens Name Role Phone Unavailable Primary Care Provider [...]
--- OUTSIDE RECORDS SUMMARY | 2025-04-27 15:34 | XMS_ITS | Encounter Summary ---
Author Organization [employer] Address [address] [place] [address] 7 [place] [address] Care Team Providers Care Rental Clerk Tool And Equipment Name Role Phone Susy Edmondson MD Primary Care Provider + Encounter Details Date Type Department Care Team (Late Contact Info) Description 12/16/2022 Orders Only [facility] MEDICINE [address] [place] [address] [phone] Susy Edmondson MD [address] [place] [address] [phone] Gastric polyp (Primary Dx); Chronic superficial gastritis [...] Info) Description 04/30/2025 11:30 AM EST Telemedicine [facility] MEDICINE [address] [place] [address] [phone] Susy Edmondson MD [address] [place] [address] [phone] 05/24/2025 12:00 PM EST Office Visit [facility] MEDICINE [address] [place] [address] Susy Edmondson MD [address] [place] [address] documented as of this encounter Visit Diagnoses Diagnosis Gastric polyp- Primary Benign neoplasm of stomach Chronic superficial gastritis without bleeding documented in this encounter Care Teams Rental Clerk Tool And Equipment Relationship Specialty Start Date End Date Susy Edmondson MD [address] [place] [address] PCP - General Family Medicine 08/21/20 documented as of this encounter
--- OUTSIDE RECORDS SUMMARY | 2025-04-27 15:34 | XMS_ITS | Encounter Summary ---
Author Organization [employer] Address [address] [place] [address] 7 [place] [address] Care Team Providers Care Carpet Winder Name Role Phone Susy Edmondson MD Primary Care Provider + Reason for Visit * Reason Onset Date Comments Letter for School/Work 07/08/2023 Encounter Details Date Type Department Care Team ([facility] st Contact Info) Description 07/08/2023 Telephone [facility] MEDICINE [address] [place], [place] [phone] Susy Edmondson MD [address] [place] [address] Letter for School/Work Social History Tobacco Use [...] EST Letter generated and sent to scan. [facility] to pt informing that note is available through [employer] and if pt would like copy mailed to us to return call to office to inform. * Telephone Encounter - Aryan Morris - 07/08/2023 3:28 PM EST Tc from pt had televisit with Dr. Drew 07/07/23 requesting letter to excuse her from work due to covid. If any questions please contact pt at [phone] documented in this encounter Plan of Treatment Upcoming Encounters Date Type Department Care Team (Late st Contact Info) Description 04/30/2025 11:30 AM EST Telemedicine [address] [phone] Susy Edmondson MD [address] [place] [phone] 05/24/2025 12:00 PM EST Office Visit [facility] MEDICINE [address] [place] [address] Susy Edmondson MD [address] [place] [phone] documented as of this encounter Visit Diagnoses Not on filedocumented in this encounter Care Teams Carpet Winder Relationship Specialty Start Date End Date Susy Edmondson MD [address] [place] [phone] PCP - General Family Medicine 08/21/20 documented as of this encounter
--- OUTSIDE RECORDS SUMMARY | 2025-04-27 15:34 | XMS_ITS | Encounter Summary ---
Author Organization [employer] Address [address] [place] [address] 7 [place] [address] Care Team Providers Care Diathermy Equipment Repairer Name Role Phone Susy Edmondson MD Primary Care Provider + Reason for Visit * Reason Onset Date Comments Nurse Triage 05/23/2024 Encounter Details Date Type Department Care Team ([facility] st Contact Info) Description 05/23/2024 Telephone [facility] MEDICINE [address] [place], [place] [phone] Susy Edmondson MD [address] [place], [place] [phone] Nurse Triage Social History Tobacco Use Types [...] questions regarding medications. Pt was seen in [facility] 05/03/24 for asthma. Orderswere given for prednisone, [...] provider. Pt is advised can come to [facility] if needed. Pt reports will wait for [...] Info) Description 04/30/2025 11:30 AM EST Telemedicine [facility] MEDICINE [address] [place] [address] [phone] Susy Edmondson MD [address] [place] [address] 05/24/2025 12:00 PM EST Office Visit [facility] MEDICINE [address] [place] [address] Susy Edmondson MD [address] [place], [place] [phone] documented as of this encounter Visit Diagnoses Not on filedocumented in this encounter Additional Health Concerns Assessment Noted Time PHQ-9 Depression Total Score: 0 09/06/19 24 10:59 AM EDT documented as of this encounter Care Teams Diathermy Equipment Repairer Relationship Specialty Start Date End Date Suys Edmondson MD [address] [place] [phone] PCP - General Family Medicine 08/21/20 documented as of this encounter
--- OUTSIDE RECORDS SUMMARY | 2025-04-27 15:34 | XMS_ITS | Encounter Summary ---
Author Organization [employer] Address 75 [facility] 7 [place] [address] Care Team Providers Care Associate Music Professor Name Role Phone Susy Edmondson MD Primary Care Provider + Encounter Details Date Type Department Care Team ([facility] st Contact Info) Description 11/06/2024 Orders Only [facility] CHC MED & PEDS [address] [place], [place] [phone] Yolie Millre MD [address] [place] [address] Cystitis Social History Tobacco Use Types Packs/Day [...] Info) Description 04/30/2025 11:30 AM EST Telemedicine [facility] MEDICINE [address] [place] [address] Susy Edmondson MD [address] [place] [address] 05/24/2025 12:00 PM EST Office Visit [facility] MEDICINE [address] [place] [address] Susy Edmondson MD [address] [place] [address] documented as of this encounter Visit Diagnoses Diagnosis Cystitis Unspecified cystitis documented in this encounter Additional Health Concerns Assessment Noted Time PHQ-9 Depression Total Score: 0 09/06/19 24 10:59 AM EDT documented as of this encounter Care Teams Associate Music Professor Relationship Specialty Start Date End Date Susy Edmondson MD [address] [place] [phone] PCP - General Family Medicine 08/21/20 documented as of this encounter
--- OUTSIDE RECORDS SUMMARY | 2025-04-27 15:34 | XMS_ITS | Encounter Summary ---
Author Organization [employer] Address 75 [facility] 7 [place] [address] Care Team Providers Care Lockstitch Front Edge Tape Sewer Name Role Phone Susy Edmondson MD Primary Care Provider + Encounter Details Date Type Department Care Team (Latest Contact Info) Description 04/24/2025 Travel Social History Tobacco Use Types Packs/Day [...] Info) Description 04/30/2025 11:30 AM EST Telemedicine [facility] MEDICINE [address] [place] [address] Susy Edmondson MD [address] [place] [address] 05/24/2025 12:00 PM EST Office Visit [facility] MEDICINE [address] [place] [address] Susy Edmondson MD [address] [place] [address] documented as of this encounter Visit Diagnoses Not on filedocumented in this encounter Additional Health Concerns Assessment Noted Time PHQ-9 Depression Total Score: 0 09/06/19 24 10:59 AM EDT documented as of this encounter Care Teams Lockstitch Front Edge Tape Sewer Relationship Specialty Start Date End Date Susy Edmondson MD [address] [place] [phone] PCP - General Family Medicine 08/21/20 documented as of this encounter
--- OUTSIDE RECORDS SUMMARY | 2025-04-27 15:34 | XMS_ITS | Clinical Summary ---
Author Organization [facility] ity Address [address] [place] [address] Care Team Providers Care Office Automation Technician Name Role Phone Unavailable Primary Care Provider [...] RESULTING AGENCY - 11/26/2023 6:26 AM EDT [id number] THINPREP PAP, IMAGED: NEGATIVE FOR SQUAMOUS INTRAEPITHELIAL [...]
--- OUTSIDE RECORDS SUMMARY | 2025-04-27 15:34 | XMS_ITS | Clinical Summary ---
Author Organization [facility] Address [address] [place] [address] Care Team Providers Care Shirt Ironer Name Role Phone Pcp, No Primary Care [...] your patient to us, Marii Eisenberg MD [phone] (Electronically Signed - 04/13/2019 16:30) Copy: KENTRELL BERNARDO MD [facility] 8[place] [address] Procedure Note Marii Eisenberg MD [...] patient's personal breast tissue composition as required [facility] law. BIRADS Category 3: Probably Benign Finding(s) Thank you for referring your patient to us, Marii Eisenberg MD [phone] (Electronically Signed - 04/13/2019 16:30) Copy: KENTRELL BERNARDO MD [facility] 8-D CANAL ELECTRONIC [place] [address] Amara Toscano APRN IMG LEGACY PROCEDURES Fi nal Result from Last 3 Months or Most Recently Relevant to Health Maintenance Insurance [facility] Care Teams Shirt Ironer Relationship Specialty Start Date End Date Pcp, No PCP - General General Medicine 07/26/18
--- OUTSIDE RECORDS SUMMARY | 2025-04-27 15:34 | XMS_ITS | Clinical Summary ---
Author Organization [employer] Address [address] [place] [address] 7 [place] [address] Care Team Providers Care Operator Engineer Name Role Phone Susy Edmondson MD [...] 24 Active omeprazole (PriLOSEC) [address] capsuleIndications :Gastroesophageal reflux disease without esophagitis Take 1 capsule (20 mg) by mouth every 12 (twelve) hours. 60 capsule 07/27/19 24 Active ergocalciferol (Vitamin D2) 1.25 MG (81204 UT) capsuleIndications :Vitamin D deficiency TAKE 1 CAPSULE BY MOUTH [...] 11/09/19 25 Active SUMAtriptan (Imitrex) 25 MG tabletIndications: Chronic migraine with aura and with status migrainosus, not intractable Take 1 tablet (25 mg) by mouth 1 (one) time if needed for migraine for up to 1 dose. May repeat dose once in 2 hours if no relief. Do not exceed 2 doses in 24 hours. 9 tablet 02/24/20 25 Active ondansetron ODT (Zofran-ODT) 4 MG disintegrating tabletIndications: Chronic migraine with aura and with status migrainosus, not intractable Take 1 tablet (4 mg) by mouth every 8 (eight) hours if needed for nausea or vomiting for up to 7 days. 20 tablet 5 4:34 PM EST 02/24/20 25 025 Active cyclobenzaprine (Flexeril) 10 MG tabletIndications: Chronic right-sided low back pain without sciatica TAKE 1 TABLET BY MOUTH AT BEDTIME 30 tablet 3 5 4:34 PM EST 02/28/20 25 Active amitriptyline (Elavil) 10 MG tabletIndications: Chronic migraine with aura and with status migrainosus, not intractable Take 1 tablet (10 mg) by mouth at bedtime. 30 tablet 1 5 4:34 PM EST 03/19/20 25 025 Active ibuprofen 600 MG tablet Take 1 tablet (600 mg) by mouth every 8 (eight) hours if needed for mild pain or moderate pain. 90 tablet 04/16/20 25 025 Active Nirmatrelvir&Riton avir 300/100 (Paxlovid, 300/100,) 20 x 150 MG & 10 x 100MG tablet therapy pack Take 3 tablets by mouth 2 times daily for 5 days. 30 each 04/16/20 25 025 Active Problems Problem Noted Date Diagnosed Date Attention deficit hyperactiv ity disorder (ADHD), combined type 04/26/2025 Memory impairment 04/17/2025 Assessment & Plan (04/17/2025 [...] prescription instructions) I also prescribed for patient Ernestina for the nausea Plan is to follow-up [...] obtain Mammogram: UTD? Will obtain results form [facility] Eye exam: UTD, she will fu next [...] 12/16/2022 Overview (12/16/2022): Sp EGD 11/2022 at [facility] Chronic superficial gastritis without bleeding 0 12/16/2022 Overview (12/16/2022): SP EGD at [facility] on 11/2022 Pre-diabetes 05/25/2022 Assessment & Plan [...] track of menstrual cycles - f/u with [facility] at [facility] during next pap smear Assessment [...] exercise, life style modifications, diet, referral to invoicing specialist. - Discussed re lower calorie intake, [...] Umbilical hernia 05/15/2022 Urinary incontinence 05/15/2022 Encounters * This document contains information received from the source organization and may not represent a complete record from that organization. 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, not intractable; Screening mammogram for breast cancer; Pre-diabetes; Congestion of nasal sinus; Trauma and stressor-related disorder 04/16/2025 Travel 03/19/2025 2:30 PM EDT Telemedicine [facility] [address] [place] [phone] Julieth Hayes MD Chronic migraine with aura and with status migrainosus, not intractable; Hypersomnia; Snoring 03/19/2025 Travel 02/24/2025 Refill [facility] [address] [place] [address] Susy Edmondson MD Chronic right-sided low back pain without sciatica 02/23/2025 2:00 PM EDT Office Visit [facility] [address] [place], [place] [phone] Julieth Hayes MD Chronic migraine with aura and with status migrainosus, not intractable 02/23/2025 Travel from Last 3 Months Immunizations Immunization Administration Dates Next Due Hep B, adult 04/25/2014,11/30/2013,11/02/2013 Influenza, Split (incl. jose m fied surface antigen) 04/03/2006,04/14/2005 Influenza, Unspecified 02/21/2014,03/24/2010,06/2005 MMR 01/22/2022 Moderna Covid-19 Vaccine 12+ 07/15/2021,10/16/19 21,09/17/2020 Tdap 05/26/2024,11/02/2013,06/07/1999 Social History Tobacco Use Types [...] housing situation today? I have aparna sing 10/03/[address] you li [...] Info) Description 04/30/2025 11:30 AM EST Telemedicine [facility] [address] [place] [address] Susy Edmondson MD [address] [place], [place] [phone] 05/24/2025 12:00 PM EST Office Visit [facility] [address] [place], [place] [phone] Susy Edmondson MD [address] [place] [phone] Health Maintenance Due Date Last [...] 09/05/2024 09/06/2023, 09/06/19 24 COVID-19 Vaccine ( season) 2025 07/15/2021, 10/15/2020, 09/17/2020 Influenza Vaccine (#1) 2025 4, 03/24/2010, 04/03/2006, Additional history exists Cervical Cancer Screening 09/03/2025 HPV/Cotest 09/03/2025 09/03/2020 Pap Smear 09/03/2025 09/03/2020 SDOH Screening 10/03/2025 10/03/2024 Tobacco Screening 04/16/2026 04/16/2025 Diabetes: Hemoglobin A1C 04/17/2026 04/17/2025, 05/07 Zoster Vaccines (1 of 2) 11/19/2027 Lipid [...] Procedure Name Priority Date/Time Associated Diagnosis Comments LYME DISEASE AB W/REFL TO BLOT (IGG, IGM) Routine 04/17/2025 4:10 PM EST 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, not intractable TSH W/REFLEX TO FT4 Routine 04/17/2025 4 :10 PM EST 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, not intractable BASIC METABOLIC PANEL Routine 04/17/2025 4:10 PM EST 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, not intractable HEMOGLOBIN A1C Routine 04/17/2025 4:10 PM EST 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, not intractable POCT RAPID COVID ANTIGEN Routine 04/16/2025 3:18 [...] Recently Relevant to Health Maintenance Results * TSH with Reflex to Free T4 (04/17/2025 4:10 PM EST) TSH reflex Free T4 1.62 0.32 - 4.0 uIU/mL [facility] Blood 04/17/2025 4:10 PM EST 04/17/2025 5:28 PM EST us Susy Edmondson MD LAB BLOOD ORDERABLES Fin al Result [facility] [address] [place] [phone] * Lyme Disease Ab with Reflex to Blot (IgG, IgM) (04/17/2025 4:10 PM EST) Lyme Antibody Screen <0.90 index [facility] Comment:Index Interpretatio n ----- < 0.90 Negative 0.90-1.09 Equivocal > 1.09 PositiveAs recommended by the Food and Drug Administration(FDA), all samples with positive or equivocalresults in a Borrelia burgdorferi antibody screenwill be tested using a blot method. Positive orequivocal screening test results should not beinterpreted as truly positive until verified as suchusing a supplemental assay (e.g., B. burgdorferi blot).The screening test and/or blot for B. burgdorferiantibodies may be falsely negative in early stagesof Lyme disease, including the period when erythemamigrans is apparent.THIS TEST WAS PERFORMED AT:[facility] [place] [phone] VARGAS MD Lyme Blot TNP [facility] 04/17/2025 4:10 PM EST 04/17/2025 5:25 PM EST Susy Edmondson MD LAB BLOOD ORDERABLES Fin al Result Performing Organization Address [facility] [address]/[facility] Co de Phone Number [facility] [address] [place] [phone] * Hemoglobin A1c (04/17/2025 4:10 PM EST) Hemoglobin A1c 5.9 <6.0 % [facility] Comment:Hemoglobin A1C Refer ence Range Adults: 4.8 - 6.0 % Non diabetic: < 6.0 % Goal: < 7.0 %Additional Action Suggested: > 8.0 %Note: Hemoglobin A1c results are invalid for patients with abnormal amounts of HbF. Blood transfusions may impact the HbA1c concentration in the patient sample. Estimated Average Glucose 123 mg/dL [facility] Comment:eAG = Estimated ave rage glucose which is %A1C expressed asaverage glucose, using the formula of the T2Q-MmlayvbMawwtss Glucose study (ADAG), Diabetes Care, Vol.31,#8,Jan. 2007 Blood Venous blood specimen / Unknown 04/17/2025 4:10 PM EST 04/17/2025 5:30 PM EST Susy Edmondson MD LAB BLOOD ORDERABLES Fin al Result Performing Organization Address [facility]/State/ZIP Co de Phone Number [facility] [address] [place] [phone] * (ABNORMAL) Basic Metabolic Panel (04/17/2025 4:10 PM EST) [facility] Sodium 140 135 - 145 mmol/L [facility] Potassium 3.8 3.3 - 5.1 mmol/L [facility] Chloride 105 96 - 108 mmol/L [facility] Carbon Dioxide 29 22 - 29 mmol/L [facility] Anion Gap 10(L) 12 - 20 [facility] Urea Nitrogen (BUN) 10 9 - 16 mg/dL [facility] Creatinine, Serum 0.71 0.5 - 1.4 mg/dL [facility] Estimated Glomerular Filt Rate >60 [facility] Comment:Chronic Kidney Disea se: Estimated GFR < 60 mL/min/1.93o1Gjftou Kidney Disease: Estimated GFR < 15 mL/min/1.73m2 Glucose 93 60 - 115 mg/dL [facility] Calcium 9.3 8.4 - 10.2 mg/dL [facility] Blood Venous blood specimen / Unknown 04/17/2025 4:10 PM EST 04/17/2025 5:28 PM EST us Susy Edmondson MD LAB BLOOD ORDERABLES Fin al Result [facility] [address] [place] [phone] * (ABNORMAL) POCT Rapid Covid-19 BinaxNOW (04/16/2025 3:18 PM EST) [facility] Rapid COVID Ag Positive QC Media Lot # [id number] Lot# Expiration Date [id number] Swab 04/16/2025 3:18 PM EST Susy Edmondson MD POINT OF CARE TEST ENTER /EDIT ORDERABLES Final Result * Hm Colonoscopy (09/12/2024) Colonoscopy Normal Normal Comment:benign polyp us Susy Edmondson MD HEALTH MAINTENANCE Final Result * (ABNORMAL) Lipid Panel with Reflex to Direct LDL (10/13/2023 9:29 AM EDT) Triglycerides 235(H) <150 mg/dL [facility] Comment:Desirable Triglyceri de: less than 150 mg/dLBorderline High Triglyceride 150-199 mg/dLHigh Triglyceride: 200-499 mg/dLVery High Triglyceride: greater than or equal to 5OO mg/dL Cholesterol 242(H) <200 mg/dL [facility] Comment:Desirable Cholestero l: less than 200 mg/dLBorderline High Cholesterol: 200-239 mg/dLHigh Cholesterol: greater than 239 mg/dL LDL Cholesterol Calculated 151(H) <100 mg/dL [facility] Comment:Desirable LDL: less than 100 mg/dLNear Optimal/Above Optimal LDL: 110- 129 mg/dLBorderline High LDL: 130-159 mg/dLHigh LDL: 160-189 mg/dLVery High LDL: greater than or equal to 190 mg/dL HDL Cholesterol 44 >40 mg/dL [facility] Comment:Desirable HDL: great er than 40 mg/dL Note: This HDL assay may give artificially low results in patients with liver disease. Blood 10/13/2023 9:29 AM EDT 10/13/2023 11:25 AM EDT us Susy Edmondson MD LAB BLOOD ORDERABLES Fin al Result [facility] [address] [place], [place] [phone] * Hepatitis Panel, General (10/13/2023 9:29 AM EDT) Hepatitis A IgM Nonreactive Nonreactive [facility] Comment:IgM antibodies to TELLO V not detected; does not exclude earlyacute or recovered HAV infection. ~Hepatitis B Surface Antibody NONREACTIVE Nonreactive [facility] Comment:Nonreactive: < 8.00 mIU/mL Hepatitis B Core Antibody Nonreactive Nonreactive [facility] Hepatitis C Antibody Nonreactive Nonreactive [facility] Comment:Antibodies to HCV no t detected; does not exclude early acuteHCV infection. Hepatitis B Surface Ag Negative Negative [facility] Blood 10/13/2023 9:29 AM EDT 10/13/2023 11:25 AM EDT us Susy Edmondson MD LAB BLOOD ORDERABLES Fin al Result Performing Organization Address [facility] [address]/ZIP Co de Phone Number [facility] [address] [place] [phone] * HIV-1/2 Antigen and Antibodies, Fourth Generation, with Reflexes (10/13/2023 9:29 AM EDT) HIV AB/AG Nonreactive Nonreactive [facility] Comment:HIV-1 p24 Ag and/or HIV-1/HIV-2 Ab not detected.A test result that is nonreactive does not exclude thepossibility of exposure to or infection with HIV-1 and/orHIV-2. Nonreactive results in this assay for individualswith prior exposure to HIV-1 and/or HIV-2 may be due toantigen and antibody levels that are below the limit ofdetection of this assay.The [employer] MedianiScan HIV Ag/Ab Combo assay result andsupplemental assay results should be interpreted inconjunction with the patient's clinical presentation,history and other laboratory results. If the results areinconsistent with clinical evidence, additional testing issuggested to confirm the result. Blood Venous blood specimen / Unknown 10/13/2023 9:29 AM EDT 10/13/2023 11:25 AM EDT us Susy Edmondson MD LAB BLOOD ORDERABLES Fin al Result Performing Organization Address [facility] [address]/ZIP Co de Phone Number [facility] [address] [place] [phone] * Mammography Report 1 (10/23/2020 10:00 [...] along with historic and current clinical information. Customer Agent : SEE COMMENT [facility] Comment: YP, CT(ASCP) CT screening location: [place] [address] Interpretation/R esult: Negative for intraepithelial lesion or malignancy. [facility] LMP: NONE GIVEN [facility] Prev. BX: NONE GIVEN [facility] Prev. PAP: NONE [facility]IVEN [facility] Review Customer Agent : SEE COMMENT [facility] Comment: DCR, CT(ASCP) CT screening location: [place] [address] SOURCE: None given [facility] Statement Of Adequacy: SEE COMMENT [facility] Comment: Satisfactory for evaluation. Endocervical/transformation zone component present. Age and/or menstrual status not provided 09/03/2020 3:37 PM EDT Lily Kuo CNM LAB PATHOLOGY ORDERABLES Final Result [facility] [address] * HPV mRNA E6/E7 (09/03/2020 3:37 PM EDT) HPV nRNA E6/E7 Not Detected Not Detected [facility] Comment: Methodology: Collar Stay Fuser Tender-Mediated Amplification This assay detects E6/E7 viral messenger RNA (mRNA) from 14 high-risk HPV types (16,18,31,33,35,39,45,51,52,56,58,59,66,68). The analytical performance characteristics of this assay have been determined by [facility]. The modifications have not been cleared or approved by the FDA. This assay has been validated pursuant to the CLIA regulations and is used for clinical purposes. For additional information, please refer to http://education.[employer]/faq/KOU739y6 (This link if provided for information/ educational purposes only.) 09/03/2020 3:37 PM EDT Lily ARZOLA LAB BLOOD ORDERABLES Brittani l Result [facility] [address] from Last 3 Months or Most Recently Relevant to Health Maintenance Insurance Care Teams Operator Engineer Relationship Specialty Start Date End Date Susy Edmondson MD [address] [place] [phone] PCP - General Family Medicine 08/21/20
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
--- OUTSIDE RECORDS SUMMARY | 2025-04-27 15:34 | XMS_ITS | Encounter Summary ---
Author Organization [employer] Address [address] [place] [address] [address], [place] [address] Care Team Providers Care Steel Handler Name Role Phone Susy Edmondson MD Primary Care Provider + Reason for Visit * Reason Comments Med Refill Encounter Details Date Type Department Care Team (Late st Contact Info) Description 05/17/2023 Refill [facility] [address] [place] [phone] Susy Edmondson MD [address] [place] [address] [phone] Social History Tobacco Use Types Packs/Day Years [...] Info) Description 04/30/2025 11:30 AM EST Telemedicine [facility] [address] [place] [phone] Susy Edmondson MD [address] [place] [address] [phone] 05/24/2025 12:00 PM EST Office Visit [facility] [address] [place] [address] Susy Edmondson MD [address] [place], [place] [phone] documented as of this encounter Visit Diagnoses Not on filedocumented in this encounter Care Teams Steel Handler Relationship Specialty Start Date End Date Susy Edmondson MD [address] [place] [address] PCP - General Family Medicine 08/21/20 documented as of this encounter
--- OUTSIDE RECORDS SUMMARY | 2025-04-27 15:34 | XMS_ITS | Encounter Summary ---
Author Organization [employer] Address [address] [facility] 7 [place] [address] Care Team Providers Care Marketing Researcher Name Role Phone Susy Edmondson MD Primary Care Provider + Reason for Visit * Reason Onset Date Comments Appointment Request 08/25/2023 Encounter Details Date Type Department Care Team ([facility] st Contact Info) Description 08/25/2023 Telephone [facility] [address] [place], [place] [phone] Susy Edmondson MD [address] [place], [place] [phone] Appointment Request Social History Tobacco Use Types [...] Info) Description 04/30/2025 11:30 AM EST Telemedicine [facility] [address] [place] [phone] Susy Edmondson MD [address] [place] [address] 05/24/2025 12:00 PM EST Office Visit [facility] [address] [place] [phone] Susy Edmondson MD [address] [place] [address] documented as of this encounter Visit Diagnoses Not on filedocumented in this encounter Care Teams Marketing Researcher Relationship Specialty Start Date End Date Susy Edmondson MD [address] [place] [phone] PCP - General Family Medicine 08/21/20 documented as of this encounter
--- OUTSIDE RECORDS SUMMARY | 2025-04-27 15:34 | XMS_ITS | Encounter Summary ---
Author Organization [employer] Address [address] [facility] 7 [place] [address] Care Team Providers Care Mix Mill Tender Name Role Phone Susy Edmondson MD Primary Care Provider + Reason for Visit * Reason Comments Med Refill Encounter Details Date Type Department Care Team ([facility] st Contact Info) Description 09/10/2023 Refill [facility] [address] [place], [place] [phone] Lyudmila Puri FNP [address] [place] [address] Social History Tobacco Use Types Packs/Day Years [...] your housing situation today? I have aparna zaavla 08/26/[address] you li [...] Info) Description 04/30/2025 11:30 AM EST Telemedicine [facility] [address] [place] [phone] Susy Edmondson MD [address] [place] [phone] 05/24/2025 12:00 PM EST Office Visit [facility] [address] [place] [address] Susy Edmondson MD [address] [place] [phone] documented as of this encounter Visit Diagnoses Not on filedocumented in this encounter Additional Health Concerns Assessment Noted Time PHQ-9 Depression Total Score: 0 09/06/19 24 10:59 AM EDT documented as of this encounter Care Teams Mix Mill Tender Relationship Specialty Start Date End Date Susy Edmondson MD [address] [place] [phone] PCP - General Family Medicine 08/21/20 documented as of this encounter
== END 2025-04-27 15:30 | disposition home or self-care (01) ==
LOC: HO.MAMMO 15:29
PROVIDERS: Visit Provider Internal Medicine
DX: Z12.31 Encounter for screening mammogram for malignant neoplasm of breast (principal)
CPT/HCPCS: 77063; 77067

== ENCOUNTER → 2025-04-27 15:45 | Outpatient (BNV) | payer OTHER, SELFPAY | PROVIDERS: Visit Provider Internal Medicine | DX: Z12.31 Encounter for screening mammogram for malignant neoplasm of breast (principal) | CPT/HCPCS: 77063; 77067 ==

== ENCOUNTER → 2025-05-12 09:08 | Outpatient (BNV) | payer OTHER, SELFPAY | PROVIDERS: PCP Internal Medicine; Visit Provider Radiology Diagnostic Radiology | DX: G43.909 Migraine, unspecified, not intractable, without status migrainosus (principal); R41.3 Other amnesia | CPT/HCPCS: 70551 ==

== ENCOUNTER 2025-05-12 09:09 | Outpatient (REF) | payer OTHER, SELFPAY ==
--- NOTE | ~2025-05-12 | MR_ITS ---
EXAMINATION: MR BRAIN WITHOUT CONTRAST CLINICAL INFORMATION: Migraines/worsening memory. COMPARISON: None available. TECHNIQUE: MRI of the brain was obtained using routine sequences without contrast. FINDINGS: No restricted diffusion. No acute intracranial hemorrhage, mass effect, midline shift, hydrocephalus or herniation. Santana-white matter differentiation is normal. There are a few scattered, nonspecific subcortical deep white matter hyperintense T2 FLAIR signal foci involving mostly the left cerebral hemisphere. Posterior cranial fossa contents demonstrated no signal abnormality or mass effect. Normal position of the cerebellar tonsils. Sellar/suprasellar region is normal. Flow-void signal within the main cerebral vessels is normal. MR/MR head/brain wo con IMPRESSION: No acute or structural brain abnormality. Nonspecific white matter T2 FLAIR signal which could be seen patients with migraines. Electronically signed by: Marshal Ortez MD 05/14/2025 08:01 AM [facility]
--- OUTSIDE RECORDS SUMMARY | 2025-05-12 09:12 | XMS_ITS | Encounter Summary ---
Author Organization [employer] Address [address] [place] [address] Care Team Providers Care Drapery Worker Name Role Phone Susy Edmondson MD Primary Care Provider + Reason for Visit * Reason Comments Med Refill Encounter Details Date Type Department Care Team (Late Contact Info) Description 05/17/2023 Refill [facility] [address] [place] [address] [phone] Susy Edmondson MD [address] [place] [address] [phone] Social History Tobacco Use Types Packs/Day Years [...] Care Team (Late st Contact Info) Description 07/12/2025 11:15 AM EST Office Visit [facility] [address] [place] [address] [phone] Susy Edmondson MD [address] [place], [place] [phone] documented as of this encounter Visit Diagnoses Not on filedocumented in this encounter Care Teams Drapery Worker Relationship Specialty Start Date End Date Susy Edmondson MD [address] [place] [phone] PCP - General Family Medicine 08/21/20 documented as of this encounter
--- OUTSIDE RECORDS SUMMARY | 2025-05-12 09:12 | XMS_ITS | Encounter Summary ---
Author Organization [employer] Address [address] [place] [address] 7 [place] [address] Care Team Providers Care Wheel Fitter Name Role Phone Susy Edmondson MD Primary Care Provider + Reason for Visit * Reason Onset Date Comments Letter for School/Work 07/08/2023 Encounter Details Date Type Department Care Team ([facility] st Contact Info) Description 07/08/2023 Telephone [facility] [address] [place], [place] [phone] Susy Edmondson MD [address] [place] [address] Letter for School/Work Social History Tobacco Use [...] EST Letter generated and sent to scan. [facility] to pt informing that note is available through [employer] and if pt would like copy mailed to us to return call to office to inform. * Telephone Encounter - Aryan Morris - 07/08/2023 3:28 PM EST Tc from pt had televisit with Dr. Drew 07/07/23 requesting letter to excuse her from work due to covid. If any questions please contact pt at [phone] documented in this encounter Plan of Treatment Upcoming Encounters Date Type Department Care Team (Late st Contact Info) Description 07/12/2025 11:15 AM EST Office Visit [facility] [address] [place] [address] [phone] Susy Edmondson MD [address] [place] [phone] documented as of this encounter Visit Diagnoses Not on filedocumented in this encounter Care Teams Wheel Fitter Relationship Specialty Start Date End Date Susy Edmondson MD [address] [place] [address] [phone] PCP - General Family Medicine 08/21/20 documented as of this encounter
--- OUTSIDE RECORDS SUMMARY | 2025-05-12 09:12 | XMS_ITS | Encounter Summary ---
Author Organization [employer] Address [address] [place] [address] [address], [place] [address] Care Team Providers Care Landscape Crew Member Name Role Phone Susy Edmondson MD Primary Care Provider + Encounter Details Date Type Department Care Team (Late Contact Info) Description 12/16/2022 Orders Only [facility] [address] [place] [address] [phone] Susy Edmondson MD [address] [place] [address] [phone] Gastric polyp (Primary Dx); Chronic superficial gastritis [...] Description 07/12/2025 11:15 AM EST Office Visit [facility] [address] [place] [address] [phone] Susy Edmondson MD [address] [place] [address] [phone] documented as of this encounter Visit Diagnoses Diagnosis Gastric polyp- Primary Benign neoplasm of stomach Chronic superficial gastritis without bleeding documented in this encounter Care Teams Landscape Crew Member Relationship Specialty Start Date End Date Susy Edmondson MD [address] [place] [phone] PCP - General Family Medicine 08/21/20 documented as of this encounter
--- OUTSIDE RECORDS SUMMARY | 2025-05-12 09:13 | XMS_ITS | Clinical Summary ---
Author Organization [facility] Address [address] [place] [address] Care Team Providers Care Warning Analyst Name Role Phone Sylvia Del Cid Primary Care Provider Unavailable Allergies Active Allergy Reactions Criticality Noted Date Comments Aspirin 12/12/2009 Ciprofloxacin Hcl 01/01/2012 Reactions: Dizziness , [employer] Comment: [id number]: Red cheeks,pale complexion. S.B. Latex 10/16/2009 Metronidazole [...] Hearing loss 12/28/2019 Overview (07/11/2023): Impression - [id number]: I ordered audiometry test and evaluation. Nausea 12/22/2019 Overview (07/11/2023): Impression - [id number]: Nausea with headache could be recurrent of migraine symptoms. Will treat symptomatically. Unlikely but not impossible presentation for spann virus Adjustment reaction with brief depressive reacti on 08/08/2019 Overview (07/11/2023): Impression - [id number]: I believe secondary to her loss in the family and starting a new job that same time. I gave the patient a letter so should stay home for this week and she will start taking fluoxetine, low dose, 10 milligrams daily and I will follow her up within 1 month. Offered support. Advised to start psychotherapy as well. Impression - [id number]: Seems resolved. Will monitor. The patient will let me know if she starts developing any symptoms again. Back pain, chronic 04/13/2019 Overview (07/11/2023): Impression - [id number]: Unclear etiology; likely muscle skeletal in nature. [...] alcohol. She seems to understand. Impression - [id number]: I advised the patient to use the [...] Abdominal pain 01/07/2012 Overview (07/11/2023): Impression - [id number]: Patient is known to have GERD and it is likely secondary to that versus dyspepsia. I refer the patient back to GI specialist and she might need an endoscopy. Continue with omeprazole for now. Will monitor the symptoms. Advised to call or come back if not improving/worsening. Myalgia and myositis 02/20/2010 Aspirin Toxicity 10/16/2009 Esophageal reflux 10/16/2009 Asthma 10/16/2009 Overview (07/11/2023): Impression - [id number]: I believe that the patient is a high risk for mortality if developing spann virus. 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 I believe that it will decrease her exposure and also help with the anxiety. Impression - [id number]: I believe that the patient is a high risk for mortality if developing spann virus. 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 Encounter for preventive health examination 06/08 [...] Recently Relevant to Health Maintenance Care Teams Warning Analyst Relationship Specialty Start Date End Date Sylvia Del Cid PCP - General 01/11/23
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
--- OUTSIDE RECORDS SUMMARY | 2025-05-12 09:13 | XMS_ITS | Clinical Summary ---
Author Organization [facility] Address [address] [place] [address] Care Team Providers Care Vp Of Digital Marketing Name Role Phone Unavailable Primary Care Provider [...]
--- OUTSIDE RECORDS SUMMARY | 2025-05-12 09:13 | XMS_ITS | Encounter Summary ---
Author Organization [employer] Address [address] [facility] 7 [place] [address] Care Team Providers Care Turbine Engineer Name Role Phone Susy Edmondson MD Primary Care Provider + Reason for Visit * Reason Onset Date Comments Appointment Request 08/25/2023 Encounter Details Date Type Department Care Team ([facility] st Contact Info) Description 08/25/2023 Telephone [facility] [address] [place], [place] [phone] Susy Edmondson MD [address] [place], [place] [phone] Appointment Request Social History Tobacco Use Types [...] Description 07/12/2025 11:15 AM EST Office Visit [facility] [address] [place] [address] Susy Edmondson MD [address] [place] [address] documented as of this encounter Visit Diagnoses Not on filedocumented in this encounter Care Teams Turbine Engineer Relationship Specialty Start Date End Date Susy Edmondson MD [address] [place] [address] PCP - General Family Medicine 08/21/20 documented as of this encounter
--- OUTSIDE RECORDS SUMMARY | 2025-05-12 09:13 | XMS_ITS | Encounter Summary ---
Author Organization [employer] Address [address] [place] [address] 7 [place] [address] Care Team Providers Care Parish Worker Name Role Phone Susy Edmondson MD Primary Care Provider + Reason for Visit * Reason Onset Date Comments Nurse Triage 05/23/2024 Encounter Details Date Type Department Care Team ([facility] st Contact Info) Description 05/23/2024 Telephone [facility] [address] [place], [place] [phone] Susy Edmondson MD [address] [place], [place] [phone] Nurse Triage Social History Tobacco Use Types [...] questions regarding medications. Pt was seen in [facility] 05/03/24 for asthma. Orderswere given for [...] provider. Pt is advised can come to [facility] if needed. Pt reports will wait [...] Description 07/12/2025 11:15 AM EST Office Visit [facility] [address] [place] [address] Susy Edmondson MD [address] [place] [address] documented as of this encounter Visit Diagnoses Not on filedocumented in this encounter Additional Health Concerns Assessment Noted Time PHQ-9 Depression Total Score: 0 09/06/19 24 10:59 AM EDT documented as of this encounter Care Teams Parish Worker Relationship Specialty Start Date End Date Susy Edmondson MD [address] [place] [address] PCP - General Family Medicine 08/21/20 documented as of this encounter
--- OUTSIDE RECORDS SUMMARY | 2025-05-12 09:13 | XMS_ITS | Encounter Summary ---
Author Organization [facility] Address [address] [facility] 7 [place] [address] Care Team Providers Care Polisher Dial Name Role Phone Susy Edmondson MD Primary Care Provider + Reason for Visit * Reason Comments Med Refill Encounter Details Date Type Department Care Team ([facility] st Contact Info) Description 09/10/2023 Refill [facility] [address] [place], [place] [phone] Lyudmila Puri FNP [address] [place] [address] Social History Tobacco Use Types Packs/Day Years [...] Description 07/12/2025 11:15 AM EST Office Visit [facility] [address] [place] [phone] Susy Edmondson MD [address] [place] [phone] documented as of this encounter Visit Diagnoses Not on filedocumented in this encounter Additional Health Concerns Assessment Noted Time PHQ-9 Depression Total Score: 0 09/06/19 24 10:59 AM EDT documented as of this encounter Care Teams Polisher Dial Relationship Specialty Start Date End Date Susy Edmondson MD [address] [place] [phone] PCP - General Family Medicine 08/21/20 documented as of this encounter
--- OUTSIDE RECORDS SUMMARY | 2025-05-12 09:13 | XMS_ITS | Encounter Summary ---
Author Organization [employer] Address [address] [place] [address] [place] [address] Care Team Providers Care Expeller Worker Name Role Phone Susy Edmondson MD Primary Care Provider + Reason for Visit * Reason Comments Med Refill Encounter Details Date Type Department Care Team ([facility] st Contact Info) Description 08/23/2023 Refill [facility] [address] [place], [place] [phone] Rafa Mondragon MD [address] [place] [address] Social History Tobacco Use Types Packs/Day Years [...] Description 07/12/2025 11:15 AM EST Office Visit [facility]INE [address] [place] [phone] Susy Edmondson MD [address] [place] [phone] documented as of this encounter Visit Diagnoses Not on filedocumented in this encounter Care Teams Expeller Worker Relationship Specialty Start Date End Date Susy Edmondson MD [address] [place] [phone] PCP - General Family Medicine 08/21/20 documented as of this encounter
--- OUTSIDE RECORDS SUMMARY | 2025-05-12 09:13 | XMS_ITS | Clinical Summary ---
Author Organization [employer] Address [address] [place] [address] 7 [place] [address] Care Team Providers Care Consumer Electronic Retail Specialist Name Role Phone Susy Edmondson MD [...] mouth in the morning. 30 tablet 11 Active EPINEPHrine (AUVI-Q) 0.15 mg/0.15 mL IJ solution auto-injector injection Inject 0.15 mL (0.15 mg) into the shoulder, thigh, or buttocks if needed for anaphylaxis. 2 each 024 Active omeprazole (PriLOSEC) [address] capsuleIndication s:Gastroesophagea l reflux disease without esophagitis Take 1 capsule (20 mg) by mouth every 12 (twelve) hours. 60 capsule 11 Active ergocalciferol (Vitamin D2) 1.25 MG (22067 UT) capsuleIndication s:Vitamin D deficiency TAKE 1 CAPSULE BY MOUTH ONCE WEEKLY 12 capsule 1 Active sucralfate (Carafate) 1 g tablet Take 1 g by mouth at bedtime. Active albuterol (2.5 MG/3ML) 0.083% nebulizer solution Take 3 mL by nebulization every 4 (four) hours if needed for wheezing. 75 mL 025 2025 Active albuterol 108 (90 Base) MCG/ACT inhaler Inhale 2 puffs every 4 (four) hours if needed for wheezing. 18 g 3 025 2025 Active fluticasone (Flonase) 50 MCG/ACT nasal spray Administer 1 spray into each nostril Once per day. 16 g 2 Active Diclofenac Sodium 1 % gel APPLY 2 GRAMS TO AFFECTED AREA(S) ONCE DAILY OR TWICE DAILY NEEDED 100 g 1 Active SUMAtriptan (Imitrex) 25 MG tabletIndications :Chronic migraine with aura and with status migrainosus, not intractable Take 1 tablet (25 mg) by mouth 1 (one) time if needed for migraine for up to 1 dose. May repeat dose once in 2 hours if no relief. Do not exceed 2 doses in 24 hours. 9 tablet Active Additional Information Patient not taking.Reported on 04/30/2025 cyclobenzaprine (Flexeril) 10 MG tabletIndications :Chronic right-sided low back pain without sciatica TAKE 1 TABLET BY MOUTH AT BEDTIME 30 tablet 3 04/19/20 25 4:34 PM EST Active ibuprofen 600 MG tablet Take 1 tablet (600 mg) by mouth every 8 (eight) hours if needed for mild pain or moderate pain. 90 tablet 025 2024 Active amitriptyline (Elavil) 10 MG tabletIndications :Chronic migraine with aura and with status migrainosus, not intractable TAKE 1 TABLET BY MOUTH EVERY DAY AT BEDTIME 30 tablet 1 Active ondansetron ODT (Zofran-ODT) 4 MG disintegrating tabletIndications :Chronic migraine with aura and with status migrainosus, not intractable Take 1 tablet (4 mg) by mouth every 8 (eight) hours if needed for nausea or vomiting for up to 7 days. 20 tablet 04/19/20 25 4:34 PM EST 025 2024 amitriptyline (Elavil) 10 MG tabletIndications :Chronic migraine with aura and with status migrainosus, not intractable Take 1 tablet (10 mg) by mouth at bedtime. 30 tablet 1 04/19/20 25 4:34 PM EST 025 2024 Discontinued Nirmatrelvir&Garth navir 300/100 (Paxlovid, 300/100,) 20 x 150 MG & 10 x 100MG tablet therapy pack Take 3 tablets by mouth 2 times daily for 5 days. 30 each 025 2024 Active Problems Problem Noted Date Diagnosed Date Other specified anxiety disorders 04/30/2025 Assessment & Plan (04/30/2025 1:22 PM EST): - Behavioral evaluation for ADHD and related mental health conditions pending. - I will reach out to therapist to follow-up for comprehensive management and implementation of coping mechanisms. - She's awaiting appointment with psychiatrist to determine need for medication prescription. - She'll be out of work for 10d and I will extend Intermittent FMLA 1 more year to include mental health conditions. - Provided instructions on documentation requirements for absences as required by her HR Dept. - FU in 1-2m Attention deficit hyperactiv ity disorder (ADHD), combined [...] obtain Mammogram: UTD? Will obtain results form [facility] Eye exam: UTD, she will fu next [...] 12/16/2022 Overview (12/16/2022): Sp EGD 11/2022 at [facility] Chronic superficial gastritis without bleeding 0 12/16/2022 Overview (12/16/2022): SP EGD at [facility] on 11/2022 Pre-diabetes 05/25/2022 Assessment & Plan [...] track of menstrual cycles - f/u with [facility] at [facility] during next pap smear Assessment [...] constipation 05/15/2022 COVID-19 05/15/2022 Assessment & Plan (04/30/2025 1:11 PM EST): - Continue Mucinex and albuterol inhaler PRN. Assessment & Plan (04/16/2025 5:36 PM EST): [...] exercise, life style modifications, diet, referral to field talent qualification specialist. - Discussed re lower calorie intake, [...] organization. Date Type Department Care Team Description 05/10/2025 Refill [facility] [address] [place] [phone] Julieth Hayes MD Chronic migraine with aura and with status migrainosus, not intractable 04/30/2025 11:30 AM EST Telemedicine [facility] [address] [place] [address] Susy Edmondson MD Other specified anxiety disorders (Primary Dx); COVID-19; Mild intermittent asthma with exacerbation 04/30/2025 Travel 04/24/2025 Travel 04/16/2025 2:15 PM EST Office Visit [facility] [address] [place] [address] Susy Edmondson MD Memory impairment (Primary Dx); COVID-19; 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, not intractable; Screening mammogram for breast cancer; Pre-diabetes; Congestion of nasal sinus; Trauma and stressor-related disorder 04/16/2025 Travel 03/19/2025 2:30 PM EDT Telemedicine [facility] [address] [place] [address] Julieth Hayes MD Chronic migraine with aura and with status migrainosus, not intractable; Hypersomnia; Snoring 03/19/2025 Travel 02/24/2025 Refill [facility] [address] [place] [address] Susy Edmondson MD Chronic right-sided low back pain without sciatica 02/23/2025 2:00 PM EDT Office Visit [facility] [address] [place] [address] Julieth Hayes MD Chronic migraine with aura [...] drink = 0.6 oz pur e alcohol) Alcohol Answer Date Recorded How often do you have a drink containing alcohol ? 0 04/30/2025 How many drinks containing a lcohol do you have on a typical day when you are drinking? 0 04/30/2025 How often do you have six or more drinks on one occasion? 0 04/30/2025 Depression Answer Date Recorded Patient Health Questionnaire-9 Score 6 04/30/2025 Patient Health Questionnaire-9 Score 6 04/30/2025 Last PHQ-9: Questionnaire Data Not on file 1 06/30/2024 Housing Stability Answer Date Recorded What is your housing situation today? I have aparnakary zavala 10/03/[address] you [...] Answer Date Recorded Patient Health Questionnaire-2 Score 1 04/30/2025 Internet Access Answer Date Recorded Internet Access [...] Description 07/12/2025 11:15 AM EST Office Visit [facility] [address] [place] [address] Susy Edmondson MD [address] [place] [address] Health Maintenance Due Date Last Done Comments CT Colonography 1977 FIT DNA/Cologuard 1977 FIT 1977 FOBT 1975 Sigmoidoscopy 1975 Family Planning (PISQ) 1992 Pneumococcal Vaccine: Pediatrics (0 to 5 Years) and At-Risk Patients (6 to 49) Years (1 of 2 - PCV) 1996 COVID-19 Vaccine ( - season) 2025 07/15/2021, 10/15/2020, 09/17/2020 Influenza Vaccine (#1) 2025 4, 03/24/2010, 04/03/2006, Additional history exists Cervical Cancer Screening 09/03/2025 HPV/Cotest 09/03/2025 09/03/2020 Pap Smear 09/03/2025 09/03/2020 SDOH Screening 10/03/2025 10/03/2024 Diabetes: Hemoglobin A1C 04/17/2026 04/17/2025, 05/07 Mammogram 04/27/2026 04/27/2025, 10/05, 04/13/2019, Additional history exists Alcohol/Substance Use Screening 04/30/2026 04/30/2025 Depression Screening 04/30/2026 04/30/2025, 04/30/20 25 Disability Screening 04/30/2026 04/30/2025 Tobacco Screening 04/30/2026 04/30/2025 Zoster Vaccines (1 of 2) 11/19/2027 Lipid [...] Procedure Name Priority Date/Time Associated Diagnosis Comments BI MAMMOGRAM SCREENING TOMOSYNTHESIS BILATERAL Routine 04/27/2025 3:41 PM EST Screening mammogram for breast cancer LYME DISEASE AB W/REFL TO BLOT (IGG, [...] LDL Routine 10/13/2023 9:29 AM EDT Pre-diabetes HPV MRNA E6/E7 Routine 09/03/2020 3:37 PM EDT THINPREP PAP Routine 09/03/2020 3:37 PM EDT from Last 3 Months or Most Recently Relevant to Health Maintenance Results * BI Mammogram Screening Tomosynthesis Bilateral (04/27/2025 3:41 PM EST) Anatomical Region Laterality Modality Breast Bilateral Mammography 04/27/2025 3:41 PM EST Narrative 05/01/2025 3:27 PM EST [facility] [address] [place] [address] Mammography Report Signed Patient: Rajni Marshall MR#: [id number] 80 : 1975 Acct:[id number] Age/Sex: 49 / F ADM Date: 04/27/25 Loc: .MAMMO Attending Dr: Susy Edmondson MD Ordering Physician: Susy Edmondson MD Results: 1Ne gative Date of Service: 04/27/25 Follow Up: 1 Year From [facility] Mammogram Procedure(s): MM tomosynthesis screening BI Accession Number(s): [id number] cc: Susy Edmondson MD Reason For Exam: screening mammogram EXAMINATION: MM SCREENING DIGITAL BREAST TOMOSYNTHESIS, BILATERAL CLINICAL INFORMATION: Screening. Asymptomatic. COMPARISON: Mammography: Comparison is made with available priors TECHNIQUE: Digital breast mammography with tomosynthesis is performed in both the craniocaudal and mediolateral oblique views along with computer-aided detection (CAD). FINDINGS: There are scattered areas of fibroglandular density. There are no significant masses, abnormal calcifications, or other abnormalities. MM/MM tomosynthesis screening BI IMPRESSION: No mammographic evidence of malignancy. ASSESSMENT: BI-RADS Category 1: Negative RECOMMENDATION: Routine annual mammography screening. 1 year F/U This examination should not preclude the clinical evaluation of a suspicious palpable abnormality. This patient's information was entered into a reminder system with a target due date for their next mammogram. Electronically signed by: Candelaria Spaulding DO 05/01/2025 03:24 PM EST Dictated By: Candelaria Spaulding DO Signed By: <Electronically signed by Candelaria Spaulding DO in OV> 05/01/25 1524 DD/ 1541 TD/TT: 04/27/25 1548 Shearer Screen Measurer And Trimmer: Procedure Note Donotuseinterpreter, Image - 05/01/2025 [facility] [address] [place] [address] Mammography Report Signed Patient: Rajni Marshall LMR#: [id number] 80 : 1975Acct:[id number] Age/Sex: 49 / FADM Date: 04/27/25 Loc: HO.MAMMO Attending Dr: Susy Edmondson MD Ordering Physician: Susy Edmondson MDResults: 1Ne gative Date of Service: 04/27/25Follow Up: 1 Year From Orig ina Mammogram Procedure(s): MM tomosynthesis screening BI Accession Number(s): [id number] cc: Susy Edmondson MD Reason For Exam: screening mammogram EXAMINATION: MM SCREENING DIGITAL BREAST TOMOSYNTHESIS, BILATERAL CLINICAL INFORMATION: Screening. Asymptomatic. COMPARISON: Mammography: Comparison is made with available priors TECHNIQUE: Digital breast mammography with tomosynthesis is performed in both the craniocaudal and mediolateral oblique views along with computer-aided detection (CAD). FINDINGS: There are scattered areas of fibroglandular density. There are no significant masses, abnormal calcifications, or other abnormalities. MM/MM tomosynthesis screening BI IMPRESSION: No mammographic evidence of malignancy. ASSESSMENT: BI-RADS Category 1: Negative RECOMMENDATION: Routine annual mammography screening. 1 year F/U This examination should not preclude the clinical evaluation of a suspicious palpable abnormality. This patient's information was entered into a reminder system with a target due date for their next mammogram. Electronically signed by: Candelaria Spaulding DO 05/01/2025 03:24 PM EST Dictated By: Candelaria Spaulding DO Signed By: <Electronically signed by Candelaria Spaulding DO in OV> 05/01/25 1524 DD/ 1541 TD/TT: 04/27/25 1548 Shearer Screen Measurer And Trimmer: us Susy Edmondson MD IMG BI PROCEDURES Final Result * TSH with Reflex to Free T4 (04/17/2025 4:10 PM EST) Pathologist [facility] TSH reflex Free T4 1.62 0.32 - 4.0 uIU/mL [facility] Blood 04/17/2025 4:10 PM EST 04/17/2025 5:28 PM EST Susy Edmondson MD LAB BLOOD ORDERABLES Fin al Result [facility] [address] [place] [address] [phone] * Lyme Disease Ab with Reflex to Blot (IgG, IgM) (04/17/2025 4:10 PM EST) Pathologist [facility] Lyme Antibody Screen <0.90 index [facility] Comment:Index Interpretatio n ----- < 0.90 [...] when erythemamigrans is apparent.THIS TEST WAS PERFORMED AT:[facility] [employer] [place] [phone] VARGAS MD Lyme Blot TNP [facility] 04/17/2025 4:10 PM EST 04/17/2025 5:25 PM EST Susy Edmondson MD LAB BLOOD ORDERABLES Fin al Result Performing Organization Address [facility] Co de Phone Number [facility] [address] [place] [phone] * Hemoglobin A1c (04/17/2025 4:10 PM EST) Hemoglobin A1c 5.9 <6.0 % [facility] Comment:Hemoglobin A1C Refer ence Range Adults: 4.8 - 6.0 % Non diabetic: < 6.0 % Goal: < 7.0 %Additional Action Suggested: > 8.0 %Note: Hemoglobin A1c results are invalid for patients with abnormal amounts of HbF. Blood transfusions may impact the HbA1c concentration in the patient sample. Estimated Average Glucose 123 mg/dL [facility] Comment:eAG = Estimated ave rage glucose which is %A1C expressed asaverage glucose, using the formula of the [id number]-[id number] Glucose study (ADAG), Diabetes Care, Vol.31,#8,Jan. 2007 Blood Venous blood specimen / Unknown 04/17/2025 4:10 PM EST 04/17/2025 5:30 PM EST us Susy Edmondson MD LAB BLOOD ORDERABLES Fin al Result Performing Organization Address [facility]/ZIP Co de Phone Number [facility] [address] [place] [phone] * (ABNORMAL) Basic Metabolic Panel (04/17/2025 4:10 PM EST) Sodium 140 135 - 145 mmol/L [facility] Potassium 3.8 3.3 - 5.1 mmol/L [facility] Chloride 105 96 - 108 mmol/L [facility] Carbon Dioxide 29 22 - 29 mmol/L [facility] Anion Gap 10(L) 12 - 20 [facility] Urea Nitrogen (BUN) 10 9 - 16 mg/dL [facility] Creatinine, Serum 0.71 0.5 - 1.4 mg/dL [facility] Estimated Glomerular Filt Rate >60 [facility] Comment:Chronic Kidney Disea se: Estimated GFR < 60 mL/min/1.34e3Okxddh Kidney Disease: Estimated GFR < 15 mL/min/1.73m2 Glucose 93 60 - 115 mg/dL [facility] Calcium 9.3 8.4 - 10.2 mg/dL [facility] Blood Venous blood specimen / Unknown 04/17/2025 4:10 PM EST 04/17/2025 5:28 PM EST Susy Edmondson MD LAB BLOOD ORDERABLES Fin al Result Performing Organization Address City/State/[facility] Co de Phone Number [facility] [address] [place] [phone] * (ABNORMAL) POCT Rapid Covid-19 BinaxNOW (04/16/2025 3:18 PM EST) [facility] Rapid COVID Ag Positive QC Media Lot # [id number] Lot# Expiration Date [id number] Swab 04/16/2025 3:18 PM EST Susy Edmondson MD POINT OF CARE TEST ENTER /EDIT ORDERABLES Final Result * Hm Colonoscopy (09/12/2024) Pathologist [facility] Colonoscopy Normal Normal Comment:benign polyp Susy Edmondson MD HEALTH MAINTENANCE Final Result * (ABNORMAL) Lipid Panel with Reflex to Direct LDL (10/13/2023 9:29 AM EDT) [facility] Triglycerides 235(H) <150 mg/dL [facility] Comment:Desirable Triglyceri de: less than 150 mg/dLBorderline High Triglyceride 150-199 mg/dLHigh Triglyceride: 200-499 mg/dLVery High Triglyceride: greater than or equal to 5OO mg/dL Cholesterol 242(H) <200 mg/dL [facility] Comment:Desirable Cholestero l: less than 200 mg/dLBorderline High Cholesterol: 200-239 mg/dLHigh Cholesterol: greater than 239 mg/dL LDL Cholesterol Calculated 151(H) <100 mg/dL [facility] Comment:Desirable LDL: less than 100 mg/dLNear Optimal/Above Optimal LDL: 110- 129 mg/dLBorderline High LDL: 130-159 mg/dLHigh LDL: 160-189 mg/dLVery High LDL: greater than or equal to 190 mg/dL HDL Cholesterol 44 >40 mg/dL [facility] Comment:Desirable HDL: great er than 40 mg/dL Note: This HDL assay may give artificially low results in patients with liver disease. Blood 10/13/2023 9:29 AM EDT 10/13/2023 11:25 AM EDT us Susy Edmondson MD LAB BLOOD ORDERABLES Fin al Result [facility] [address] [place] [phone] * Hepatitis Panel, General (10/13/2023 9:29 AM EDT) Hepatitis A IgM Nonreactive Nonreactive [facility] Comment:IgM antibodies to TELLO V not detected; does not exclude earlyacute or recovered HAV infection. ~Hepatitis B Surface Antibody NONREACTIVE Nonreactive [facility] Comment:Nonreactive: < 8.00 mIU/mL Hepatitis B Core Antibody Nonreactive Nonreactive [facility] Hepatitis C Antibody Nonreactive Nonreactive [facility] Comment:Antibodies to HCV no t detected; does not exclude early acuteHCV infection. Hepatitis B Surface Ag Negative Negative [facility] Blood 10/13/2023 9:29 AM EDT 10/13/2023 11:25 AM EDT Susy Edmondson MD LAB BLOOD ORDERABLES Fin al Result Performing Organization Address [facility] Co de Phone Number [facility] [address] [place] [phone] * HIV-1/2 Antigen and Antibodies, Fourth Generation, with Reflexes (10/13/2023 9:29 AM EDT) HIV AB/AG Nonreactive Nonreactive [facility] Comment:HIV-1 p24 Ag and/or HIV-1/HIV-2 Ab not detected.A test result that is nonreactive does not exclude thepossibility of exposure to or infection with HIV-1 and/orHIV-2. Nonreactive results in this assay for individualswith prior exposure to HIV-1 and/or HIV-2 may be due toantigen and antibody levels that are below the limit ofdetection of this assay.The [employer] HIV Ag/Ab Combo assay result andsupplemental assay results should be interpreted inconjunction with the patient's clinical presentation,history and other laboratory results. If the results areinconsistent with clinical evidence, additional testing issuggested to confirm the result. Blood Venous blood specimen / Unknown 10/13/2023 9:29 AM EDT 10/13/2023 11:25 AM EDT Susy Edmondson MD LAB BLOOD ORDERABLES Fin al Result Performing Organization Address [facility] Co de Phone Number [facility] [address] [place] [phone] * THINPREP PAP (09/03/2020 3:37 PM EDT) [...] along with historic and current clinical information. Nurse Sane : SEE COMMENT [facility] Comment: YP, CT(ASCP) CT screening location: [place] [address] Interpretation/R esult: Negative for intraepithelial lesion or malignancy. [facility] LMP: NONE [facility]IVEN [facility] Prev. BX: NONE [facility]IV[facility] Prev. PAP: NONE [facility]IVEN [facility] Review Nurse Sane : SEE COMMENT [facility] Comment: DCR, CT(ASCP) CT screening location: [place] [address] SOURCE: None given [facility] Statement Of Adequacy: SEE COMMENT [facility] Comment: Satisfactory for evaluation. Endocervical/transformation zone component present. Age and/or menstrual status not provided 09/03/2020 3:37 PM EDT Lily ARZOLA LAB PATHOLOGY ORDERABLES Final Result Performing Organization Address [facility] de Phone Number [facility] [address] * HPV mRNA E6/E7 (09/03/2020 3:37 PM EDT) HPV nRNA E6/E7 Not Detected Not Detected [facility] Comment: Methodology: Gas Leak Tester-Mediated Amplification This assay detects E6/E7 viral messenger RNA (mRNA) from 14 high-risk HPV types (16,18,31,33,35,39,45,51,52,56,58,59,66,68). The analytical performance characteristics of this assay have been determined by [employer]. The modifications have not been cleared or approved by the FDA. This assay has been validated pursuant to the CLIA regulations and is used for clinical purposes. For additional information, please refer to http://education.[employer].Pharmacy Development/faq/UIX698q7 (This link if provided for information/ educational purposes only.) 09/03/2020 3:37 PM EDT Lily ARZOLA LAB BLOOD ORDERABLES Brittani l Result Performing Organization Address [facility]/ZIP Co de Phone Number [facility] [address] from Last 3 Months or Most Recently Relevant to Health Maintenance Insurance [facility] Address: [facility] [address] [place] [phone] A Care Teams Consumer Electronic Retail Specialist Relationship Specialty Start Date End Date Debo, Liliane, MD [address] [place] [phone] PCP - General Family Medicine 08/21/20
--- OUTSIDE RECORDS SUMMARY | 2025-05-12 09:13 | XMS_ITS | Clinical Summary ---
Author Organization [facility] Address [address] [place] [address] Care Team Providers Care Test Driver Name Role Phone Pcp, No Primary Care [...] your patient to us, Marii Eisenberg MD [phone] (Electronically Signed - 04/13/2019 16:30) Copy: KENTRELL BERNARDO MD [facility] [address] [address] Procedure Note Marii Eisenberg MD [...] patient's personal breast tissue composition as required [facility] law. BIRADS Category 3: Probably Benign Finding(s) Thank you for referring your patient to us, Marii Eisenberg MD [phone] (Electronically Signed - 04/13/2019 16:30) Copy: KENTRELL BERNARDO MD [facility] 8-D [place] [address] Amara Toscano APRN IMG LEGACY PROCEDURES Fi nal Result from Last 3 Months or Most Recently Relevant to Health Maintenance Insurance [facility] Care Teams Test Driver Relationship Specialty Start Date End Date Pcp, No PCP - General General Medicine 07/26/18
--- OUTSIDE RECORDS SUMMARY | 2025-05-12 09:13 | XMS_ITS | Encounter Summary ---
Author Organization [employer] Address [address] [facility] 7 [place] [address] Care Team Providers Care Clothes Separator Name Role Phone Susy Edmondson MD Primary Care Provider + Encounter Details Date Type Department Care Team ([facility] st Contact Info) Description 11/06/2024 Orders Only [facility] [address] [place], [place] [phone] Yolie Miller MD [address] [place] [address] Cystitis Social History Tobacco Use Types Packs/Day [...] Description 07/12/2025 11:15 AM EST Office Visit [facility] [address] [place] [address] Susy Edmondson MD [address] [place] [address] documented as of this encounter Visit Diagnoses Diagnosis Cystitis Unspecified cystitis documented in this encounter Additional Health Concerns Assessment Noted Time PHQ-9 Depression Total Score: 0 09/06/19 24 10:59 AM EDT documented as of this encounter Care Teams Clothes Separator Relationship Specialty Start Date End Date Susy Edmondson MD [address] [place] [address] PCP - General Family Medicine 08/21/20 documented as of this encounter
--- OUTSIDE RECORDS SUMMARY | 2025-05-12 09:13 | XMS_ITS | Clinical Summary ---
Author Organization [facility] Prior to 11/04/[address] [place] [id number] Care Team Providers Care Operations Administrative Assistant Name Role Phone Unavailable Primary Care Provider [...]
--- OUTSIDE RECORDS SUMMARY | 2025-05-12 09:13 | XMS_ITS | Encounter Summary ---
Author Organization [employer] Address [address] [place] [address] Care Team Providers Care Sampler Radioactive Waste Name Role Phone Susy Edmondson MD Primary Care Provider + Reason for Visit * Reason Comments Med Refill Encounter Details Date Type Department Care Team (Late st Contact Info) Description 05/10/2025 Refill [facility]INE [address], [place] [phone] Julieth Hayes MD [address] [place] [id number] Chronic migraine with aura and with status migrainosus, not intractable Social History Tobacco Use Types Packs/Day Years [...] Description 07/12/2025 11:15 AM EST Office Visit [facility]INE [address] [place] [address] Susy Edmondson MD [address] [place] [address] documented as of this encounter Visit Diagnoses Diagnosis Chronic migraine with aura and with status migrainosus, not intractable documented in this encounter Additional Health Concerns Assessment Noted Time PHQ-9 Depression Total Score: 6 04/30/20 25 11:40 AM EST documented as of this encounter Care Teams Sampler [employer]active Waste Relationship Specialty Start Date End Date Susy Edmondson MD [address] [place] [phone] PCP - General Family Medicine 08/21/20 documented as of this encounter
== END 2025-05-12 09:10 | disposition home or self-care (01) ==
LOC: HO.MRI 09:09
PROVIDERS: PCP Internal Medicine; Visit Provider Internal Medicine
DX: G43.509 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 infarction, not intractable, without status migrainosus (principal)
CPT/HCPCS: 70551